=== PATIENT | male | born 1970 | race Caucasian/White ===

== ENCOUNTER 2017-01-30 17:10 | Emergency (ER) | payer SELFPAY ==
[~2017-01-30] VITALS: Ht 167.6 cm; Wt 83.0 kg
[~2017-01-30 17:10] MED LIST: BUPR-93 PO; HYDR25TA PO; LISI-662 PO; QUET25TA PO; QUET300T2 PO
[2017-01-30 19:27] VITALS: BP 137/85
[2017-01-30] MEDS ORDERED: ACETAMINOPHEN 325 MG TABLET PO ONE (19:30)
[2017-01-30] MEDS ORDERED: LIDOCAINE HCL/PF 1% 2 ML VIAL IM ONE (19:30)
[2017-01-30] MEDS ORDERED: CefTRIAXone SODIUM 1 GM/VIAL IM ONE (19:30)
== END 2017-01-30 21:31 | disposition left against medical advice (07) ==
LOC: EMS 17:13
DX: S61.212A Laceration without foreign body of right middle finger without damage to nail, initial encounter (principal); F15.90 Other stimulant use, unspecified, uncomplicated; Z91.018 Allergy to other foods; Z88.8 Allergy status to other drugs, medicaments and biological substances; W31.89XA Contact with other specified machinery, initial encounter; Y93.89 Activity, other specified; Y92.89 Other specified places as the place of occurrence of the external cause; Y99.0 Civilian activity done for income or pay
CPT/HCPCS: 99281

== ENCOUNTER 2017-09-12 00:25 | Emergency (ER) | payer OTHER ==
[~2017-09-12] VITALS: Ht 170.2 cm; Wt 63.5 kg
[2017-09-12] MEDS ORDERED: HYDROCHLOROTHIAZIDE 25 MG TABLET PO ONE (01:00)
[2017-09-12] MEDS ORDERED: LISINOPRIL 10 MG TABLET PO ONE (01:00)
[2017-09-12] MEDS ORDERED: HydrOXYzine HCL 25 MG TABLET PO ONE (01:00)
[2017-09-12 01:16] LABS: BASOPHILS % (AUTO) 0.3 % (0.0-2.0); EOSINOPHILS % (AUTO) 0.5 % (1.0-6.0); HEMATOCRIT 41.2 % (41-53); LYMPHOCYTES # (AUTO) 1.4 K/uL (1.0-4.8); LYMPHOCYTES % (AUTO) 27.6 % (22.0-44.0); MEAN CORPUSCULAR HEMOGLOBIN 30.5 pg (26.0-34.0); MEAN CORPUSCULAR VOLUME 90 fL (80-100); MONOCYTES # (AUTO) 0.4 K/uL (0.1-1.0); MONOCYTES % (AUTO) 8.6 % (2.0-9.0); NEUTROPHILS # (AUTO) 3.3 K/uL (1.8-7.7); PLATELET COUNT (AUTO) 252 K/uL (150-450); RED BLOOD CELL COUNT(AUTO) 4.59 MIL/uL (4.50-5.90); RED CELL DISTRIBUTION WIDTH 15.1 % (11.5-14.5); WHITE BLOOD COUNT (AUTO) 5.2 K/uL (4.5-11.0)
[2017-09-12 01:26] LABS: ANION GAP 6 mmol/L (8-16); CALCIUM, TOTAL 8.7 mg/dL (8.8-10.5); CARBON DIOXIDE 32 mmol/L (22-29); CHLORIDE 104 mmol/L (98-107); CREATININE 0.62 mg/dL (0.60-1.30); GLOMERULAR FILTR. RATE CALC > 60 mL/min (>60); POTASSIUM 3.4 mmol/L (3.5-5.1); SODIUM SERUM 142 mmol/L (136-145); UREA NITROGEN, BLOOD 11 mg/dL (7-18)
[2017-09-12 01:31] LABS: ALANINE AMINOTRANSFERASE 38 U/L (12-78); ALBUMIN 3.4 g/dL (3.4-5.0); ASPARTATE AMINOTRANSFERASE 29 U/L (15-37); BILIRUBIN,TOTAL 0.3 mg/dL (0.1-1.0); TOTAL PROTEIN, SERUM 6.8 g/dL (6.4-8.2)
[2017-09-12 02:05] LABS: CREATINE KINASE MB 3.2 ng/mL (0-5); CREATINE KINASE, TOTAL 170 U/L (39-308)
[2017-09-12 02:44] VITALS: BP 149/89
== END 2017-09-12 02:44 | disposition home or self-care (01) ==
LOC: EMS 00:28
DX: Z91.14 Patient's other noncompliance with medication regimen (principal); F41.9 Anxiety disorder, unspecified; I10 Essential (primary) hypertension; F32.9 Major depressive disorder, single episode, unspecified; F20.9 Schizophrenia, unspecified; Z59.0 Homelessness; F17.210 Nicotine dependence, cigarettes, uncomplicated; F15.10 Other stimulant abuse, uncomplicated; Z88.8 Allergy status to other drugs, medicaments and biological substances
CPT/HCPCS: 93005; 99285; 99406

== ENCOUNTER 2017-09-26 00:20 | Inpatient (IN) | payer OTHER ==
[~2017-09-26] VITALS: Ht 170.2 cm; Wt 65.9 kg
[~2017-09-26 00:20] MED LIST changes: -QUET300T2 PO
[2017-09-26 01:21] LABS: BASOPHILS % (AUTO) 0.3 % (0.0-2.0); EOSINOPHILS % (AUTO) 0.1 % (1.0-6.0); HEMATOCRIT 41.3 % (41-53); HEMOGLOBIN 13.8 g/dL (13.5-17.5); LYMPHOCYTES % (AUTO) 21.4 % (22.0-44.0); MEAN CORPUSCULAR HEMOGLOBIN 30.2 pg (26.0-34.0); MEAN CORPUSCULAR HGB CONC 33.5 G/dL (31.0-37.0); MEAN CORPUSCULAR VOLUME 90 fL (80-100); MONOCYTES # (AUTO) 0.8 K/uL (0.1-1.0); MONOCYTES % (AUTO) 8.6 % (2.0-9.0); NEUTROPHILS # (AUTO) 6.5 K/uL (1.8-7.7); NEUTROPHILS % (AUTO) 69.6 % (40.0-70.0); PLATELET COUNT (AUTO) 270 K/uL (150-450); RED BLOOD CELL COUNT(AUTO) 4.58 MIL/uL (4.50-5.90); WHITE BLOOD COUNT (AUTO) 9.3 K/uL (4.5-11.0)
[2017-09-26 01:30] LABS: ANION GAP 7 mmol/L (8-16); CARBON DIOXIDE 32 mmol/L (22-29); CHLORIDE 99 mmol/L (98-107); CREATININE 0.88 mg/dL (0.60-1.30); GLOMERULAR FILTR. RATE CALC > 60 mL/min (>60); POTASSIUM 3.9 mmol/L (3.5-5.1); SODIUM SERUM 138 mmol/L (136-145); UREA NITROGEN, BLOOD 13 mg/dL (7-18)
[2017-09-26 01:36] LABS: ALANINE AMINOTRANSFERASE 200 U/L (12-78); ASPARTATE AMINOTRANSFERASE 114 U/L (15-37); BILIRUBIN,TOTAL 0.3 mg/dL (0.1-1.0); TOTAL PROTEIN, SERUM 8.7 g/dL (6.4-8.2)
[2017-09-26] MEDS ORDERED: METOPROLOL TARTRATE 5 MG/5 ML VIAL IVP ONE (02:00)
[2017-09-26] MEDS ORDERED: ASPIRIN 325 MG TABLET PO ONE (02:00)
[2017-09-26 02:33] LABS: B-TYPE NATRIURETIC PEPTIDE 43 pg/mL (0-100)
[2017-09-26] MEDS: LORazepam 2 MG/ML VIAL IVP ONE ×2 (02:57→03:10)
[2017-09-26] MEDS ORDERED: NITROGLYCERIN 2% (1 GM=INCH) PACKET TP ONE (03:45)
[2017-09-26] MEDS ORDERED: ONDANSETRON HCL 4 MG/2 ML VIAL IVP PRN ×2 (04:30→08:45)
[2017-09-26] MEDS ORDERED: 0.9% SODIUM CHLORIDE 10 ML SYRINGE IVP PRN (04:30)
[2017-09-26] MEDS ORDERED: ACETAMINOPHEN 325 MG TABLET PO PRN (04:30)
[2017-09-26 05:37] VITALS: BP 159/106
[2017-09-26] MEDS ORDERED: HydrALAZINE HCL 20 MG/ML VIAL IVP PRN (05:45)
[2017-09-26 07:45] VITALS: BP 172/115
[2017-09-26] MEDS ORDERED: ABAC1TAB15 PO (08:32)
[2017-09-26] MEDS ORDERED: AMLO-512 PO (08:32)
[2017-09-26] MEDS ORDERED: MULT1CAP32 PO (08:32)
[2017-09-26] MEDS ORDERED: [UNRECOGNIZED DRUG - CODE] PO (08:32)
[2017-09-26] MEDS ORDERED: MORPHINE SULFATE 2 MG/ML SYRINGE IVP PRN (08:45)
[2017-09-26] MEDS ORDERED: IPRATROPIUM BROMIDE 0.5 MG/2.5 ML NEB SOLUTION NEB PRN (08:45)
[2017-09-26] MEDS ORDERED: LORazepam 2 MG/ML VIAL IVP PRN (08:45)
[2017-09-26] MEDS ORDERED: HYDROCODONE/ACETAMINOPHEN 5-325 MG TABLET PO PRN (08:45)
[2017-09-26] MEDS ORDERED: LISINOPRIL 20 MG TABLET PO SCH (09:00)
[2017-09-26] MEDS ORDERED: [UNRECOGNIZED DRUG - OTHER] PO SCH (09:00)
[2017-09-26] MEDS ORDERED: FAMOTIDINE 20 MG TABLET PO SCH (09:00)
[2017-09-26] MEDS ORDERED: AmLODIPine BESYLATE 10 MG TABLET PO SCH (09:00)
[2017-09-26] MEDS ORDERED: CARVEDILOL 6.25 MG TABLET PO SCH (10:45)
[2017-09-26] MEDS ORDERED: ABACAVIR SULFATE 300 MG TABLET PO SCH (11:00)
[2017-09-26] MEDS ORDERED: DOLUTEGRAVIR SODIUM 50 MG TABLET PO SCH (11:00)
[2017-09-26 12:33] LABS: CHOL/HDL RATIO 1.8 (4.2-7.3); THYROID STIMULATING HORMONE 6.23 uIU/mL (0.36-3.74)
[2017-09-26 15:38] VITALS: BP 165/110
[2017-09-27] MEDS ORDERED: MULTIVITAMINS, THERAPEUTIC TABLET PO SCH (09:00)
== END 2017-09-26 17:20 | disposition left against medical advice (07) | DRG 812 ==
LOC: EMS 00:22 → 5S 04:12
PROVIDERS: ADMIT Hospitalist; ATTEND Hospitalist
DX: T43.621A Poisoning by amphetamines, accidental (unintentional), initial encounter (principal); I42.9 Cardiomyopathy, unspecified; F15.10 Other stimulant abuse, uncomplicated; I25.9 Chronic ischemic heart disease, unspecified; F41.9 Anxiety disorder, unspecified; I10 Essential (primary) hypertension; F32.9 Major depressive disorder, single episode, unspecified; F10.10 Alcohol abuse, uncomplicated; Y90.0 Blood alcohol level of less than 20 mg/100 ml; F17.210 Nicotine dependence, cigarettes, uncomplicated; F43.10 Post-traumatic stress disorder, unspecified; F20.9 Schizophrenia, unspecified; R74.0 Nonspecific elevation of levels of transaminase and lactic acid dehydrogenase [LDH]; B18.2 Chronic viral hepatitis C; Z88.1 Allergy status to other antibiotic agents; Z53.21 Procedure and treatment not carried out due to patient leaving prior to being seen by health care provider; Z91.018 Allergy to other foods; Z59.0 Homelessness; Z91.19 Patient's noncompliance with other medical treatment and regimen; Z79.899 Other long term (current) drug therapy
CPT/HCPCS: 84439; 84443; 87081; 93005; 93306; 96374; 99291; G0480; J0360; J2060; J3490

== ENCOUNTER 2017-10-07 01:20 | Inpatient (IN) | payer MEDICAID, OTHER ==
[~2017-10-07] VITALS: Ht 170.2 cm; Wt 64.9 kg
[2017-10-07] VITALS (7 sets, daily range): BP systolic 144–161; BP diastolic 79–101
[~2017-10-07 01:20] MED LIST changes: +ABAC1TAB15 PO; +AMLO-512 PO; -BUPR-93 PO; -HYDR25TA PO; +MULT1CAP32 PO; +[UNRECOGNIZED DRUG - CODE] PO
[2017-10-07] MEDS ORDERED: HALOPERIDOL 5 MG TABLET PO PRN (02:15)
[2017-10-07] MEDS ORDERED: PNEUMOCOCCAL VACCINE POLYVALENT 0.5 ML VIAL [PPSV23] IM ONE (03:30)
[2017-10-07] MEDS ORDERED: -PHARMACY VACCINE NOTE- MISC ONE (03:30)
[2017-10-07] MEDS: ZOLPIDEM TARTRATE 10 MG TABLET PO PRN (03:35)
[2017-10-07] MEDS: LORazepam 2 MG TABLET PO PRN ×2 (03:35→16:07)
[2017-10-07] MEDS ORDERED: AmLODIPine BESYLATE 5 MG TABLET PO SCH (09:00)
[2017-10-07] MEDS: CloNIDine HCL 0.1 MG TABLET PO PRN (13:31)
[2017-10-07] MEDS: QUEtiapine FUMARATE 100 MG TABLET PO SCH (20:27)
[2017-10-07] MEDS ORDERED: ACETAMINOPHEN 325 MG TABLET PO PRN (22:15)
[2017-10-07] MEDS ORDERED: IBUPROFEN 400 MG TABLET PO PRN (22:15)
[2017-10-08 07:14] VITALS: BP 126/85
[2017-10-08 08:29] LABS: BASOPHILS # (AUTO) 0.02 K/uL (0.00-0.20); BASOPHILS % (AUTO) 0.6 % (0.0-2.0); EOSINOPHILS # (AUTO) 0.06 K/uL (0.00-0.70); EOSINOPHILS % (AUTO) 1.32 % (1.0-6.0); HEMOGLOBIN 12.5 g/dL (13.5-17.5); LYMPHOCYTES # (AUTO) 1.9 K/uL (1.0-4.8); MEAN CORPUSCULAR HEMOGLOBIN 29.7 pg (26.0-34.0); MEAN CORPUSCULAR VOLUME 90 fL (80-100); MONOCYTES # (AUTO) 0.4 K/uL (0.1-1.0); MONOCYTES % (AUTO) 9.6 % (2.0-9.0); NEUTROPHILS # (AUTO) 1.9 K/uL (1.8-7.7); NEUTROPHILS % (AUTO) 44.5 % (40.0-70.0); PLATELET COUNT (AUTO) 231 K/uL (150-450); RED BLOOD CELL COUNT(AUTO) 4.22 MIL/uL (4.50-5.90); RED CELL DISTRIBUTION WIDTH 14.8 % (11.5-14.5)
[2017-10-08 08:39] VITALS: BP 146/91
[2017-10-08 08:43] LABS: HEMOGLOBIN A1C 5.8 % (4.5-6.2)
[2017-10-08] MEDS: AmLODIPine BESYLATE 10 MG TABLET PO SCH (08:43)
[2017-10-08] MEDS: LISINOPRIL 20 MG TABLET PO SCH (08:43)
[2017-10-08] MEDS: QUEtiapine FUMARATE 100 MG TABLET PO SCH ×2 (08:43→20:18)
[2017-10-08 08:59] LABS: ALANINE AMINOTRANSFERASE 64 U/L (12-78); ALBUMIN 2.4 g/dL (3.4-5.0); ALKALINE PHOSPHATASE 98 U/L (46-116); ANION GAP 2 mmol/L (8-16); ASPARTATE AMINOTRANSFERASE 68 U/L (15-37); BILIRUBIN,TOTAL 0.3 mg/dL (0.1-1.0); CALCIUM, TOTAL 8.3 mg/dL (8.8-10.5); CARBON DIOXIDE 33 mmol/L (22-29); CHLORIDE 105 mmol/L (98-107); CHOL/HDL RATIO 2.6 (4.2-7.3); CHOLESTEROL 115 mg/dL (131-200); FREE T4 (FREE THYROXINE) 0.88 ng/dL (0.76-1.46); GLOMERULAR FILTR. RATE CALC > 60 mL/min (>60); GLUCOSE,RANDOM 95 mg/dL (70-110); HDL CHOLESTEROL 45 mg/dL (40-60); LDL CHOL (CALC.) 57 mg/dL (0-130); POTASSIUM 3.8 mmol/L (3.5-5.1); SODIUM SERUM 140 mmol/L (136-145); THYROID STIMULATING HORMONE 1.52 uIU/mL (0.36-3.74); TOTAL PROTEIN, SERUM 6.3 g/dL (6.4-8.2); TRIGLYCERIDES 65 mg/dL (15-150); UREA NITROGEN, BLOOD 22 mg/dL (7-18)
[2017-10-08] MEDS ORDERED: [UNRECOGNIZED DRUG - OTHER] PO SCH (09:00)
[2017-10-08] MEDS: LORazepam 2 MG TABLET PO PRN (12:17)
[2017-10-08] MEDS: ABACAVIR SULFATE 300 MG TABLET PO SCH (15:46)
[2017-10-08] MEDS: DOLUTEGRAVIR SODIUM 50 MG TABLET PO SCH (15:46)
[2017-10-08 16:15] VITALS: BP 157/106
[2017-10-08] MEDS: CloNIDine HCL 0.1 MG TABLET PO PRN (16:16)
[2017-10-08 17:16] VITALS: BP 132/76
[2017-10-08] MEDS: ZOLPIDEM TARTRATE 10 MG TABLET PO PRN (20:18)
[2017-10-09] VITALS: BP 133/89
[2017-10-09] MEDS: DOLUTEGRAVIR SODIUM 50 MG TABLET PO SCH (08:32)
[2017-10-09] MEDS: AmLODIPine BESYLATE 10 MG TABLET PO SCH (08:33)
[2017-10-09] MEDS: LISINOPRIL 20 MG TABLET PO SCH (08:33)
[2017-10-09] MEDS: QUEtiapine FUMARATE 100 MG TABLET PO SCH (08:33)
[2017-10-09] MEDS: ABACAVIR SULFATE 300 MG TABLET PO SCH (08:33)
[2017-10-09 08:56] VITALS: BP 154/91
[2017-10-09 14:25] VITALS: BP 138/89
[2017-10-09 16:50] VITALS: BP 145/85
[2017-10-09] MEDS: QUEtiapine FUMARATE 200 MG TABLET PO SCH (20:29)
[2017-10-10 06:31] VITALS: BP 139/91
[2017-10-10 06:32] VITALS: BP 140/91
[2017-10-10 08:00] VITALS: BP 120/64
[2017-10-10] MEDS: QUEtiapine FUMARATE 200 MG TABLET PO SCH ×2 (08:54→20:28)
[2017-10-10] MEDS: ABACAVIR SULFATE 300 MG TABLET PO SCH (08:54)
[2017-10-10] MEDS: AmLODIPine BESYLATE 10 MG TABLET PO SCH (08:54)
[2017-10-10] MEDS: DOLUTEGRAVIR SODIUM 50 MG TABLET PO SCH (08:54)
[2017-10-10] MEDS: LISINOPRIL 20 MG TABLET PO SCH (08:54)
[2017-10-10 16:00] VITALS: BP 125/75
[2017-10-11 05:21] VITALS: BP 126/82
[2017-10-11 08:53] VITALS: BP 141/85
[2017-10-11] MEDS: LISINOPRIL 20 MG TABLET PO SCH (10:17)
[2017-10-11] MEDS: QUEtiapine FUMARATE 200 MG TABLET PO SCH ×2 (10:17→20:21)
[2017-10-11] MEDS: DOLUTEGRAVIR SODIUM 50 MG TABLET PO SCH (10:17)
[2017-10-11] MEDS: AmLODIPine BESYLATE 10 MG TABLET PO SCH (10:18)
[2017-10-11] MEDS: ABACAVIR SULFATE 300 MG TABLET PO SCH (10:19)
[2017-10-11 16:28] VITALS: BP 131/64
[2017-10-11] MEDS: ZOLPIDEM TARTRATE 10 MG TABLET PO PRN (21:32)
[2017-10-12 00:21] VITALS: BP 137/81
[2017-10-12 08:40] VITALS: BP 138/85
[2017-10-12] MEDS: ABACAVIR SULFATE 300 MG TABLET PO SCH (08:42)
[2017-10-12] MEDS: DOLUTEGRAVIR SODIUM 50 MG TABLET PO SCH (08:42)
[2017-10-12] MEDS: AmLODIPine BESYLATE 10 MG TABLET PO SCH (08:43)
[2017-10-12] MEDS: LISINOPRIL 20 MG TABLET PO SCH (08:43)
[2017-10-12] MEDS: QUEtiapine FUMARATE 200 MG TABLET PO SCH ×2 (08:43→20:19)
[2017-10-13 02:53] VITALS: BP 126/73
[2017-10-13] MEDS: ABACAVIR SULFATE 300 MG TABLET PO SCH (08:56)
[2017-10-13] MEDS: DOLUTEGRAVIR SODIUM 50 MG TABLET PO SCH (08:56)
[2017-10-13] MEDS: AmLODIPine BESYLATE 10 MG TABLET PO SCH (08:57)
[2017-10-13] MEDS: LISINOPRIL 20 MG TABLET PO SCH (08:57)
[2017-10-13] MEDS: QUEtiapine FUMARATE 200 MG TABLET PO SCH (08:57)
[2017-10-13 09:11] VITALS: BP 138/92
[2017-10-13 16:41] VITALS: BP 130/83
[2017-10-13] MEDS ORDERED: QUET50TA PO (18:38)
[2017-10-13] MEDS ORDERED: ALBU8HFA IH (19:26)
[2017-10-13] MEDS ORDERED: ABAC300T8 PO (19:26)
[2017-10-13] MEDS ORDERED: LAMI300T PO (19:26)
[2017-10-13] MEDS ORDERED: DOLU50TA PO (19:26)
== END 2017-10-13 22:21 | disposition home or self-care (01) | DRG 750 ==
LOC: EDSTATUS 01:26 → B2S 02:19
PROC: 3E0234Z Introduction of Serum, Toxoid and Vaccine into Muscle, Percutaneous Approach (ICD-10-PCS; principal; 2017-10-07)
DX: F25.1 Schizoaffective disorder, depressive type (principal); R45.851 Suicidal ideations; Z91.19 Patient's noncompliance with other medical treatment and regimen; I10 Essential (primary) hypertension; B18.2 Chronic viral hepatitis C; J44.9 Chronic obstructive pulmonary disease, unspecified; F15.99 Other stimulant use, unspecified with unspecified stimulant-induced disorder; Z20.6 Contact with and (suspected) exposure to human immunodeficiency virus [HIV]; Z91.5 Personal history of self-harm; Z59.0 Homelessness; Z23 Encounter for immunization
CPT/HCPCS: 83036; 84439; 84443; 87081; 90471

== ENCOUNTER 2017-10-24 00:46 | Inpatient (IN) | payer MEDICAID, OTHER ==
[~2017-10-24] VITALS: Ht 170.2 cm; Wt 65.3 kg
[~2017-10-24 00:46] MED LIST changes: -ABAC1TAB15 PO; +ABAC300T8 PO; +ALBU8HFA IH; +DOLU50TA PO; +LAMI300T PO; -MULT1CAP32 PO; -QUET25TA PO; +QUET50TA PO; -[UNRECOGNIZED DRUG - CODE] PO
[2017-10-24] MEDS ORDERED: ZOLPIDEM TARTRATE 10 MG TABLET PO PRN (02:30)
[2017-10-24 02:32] LABS: BASOPHILS % (AUTO) 0.1 % (0.0-2.0); EOSINOPHILS % (AUTO) 1.4 % (1.0-6.0); HEMOGLOBIN 12.7 g/dL (13.5-17.5); LYMPHOCYTES # (AUTO) 2.8 K/uL (1.0-4.8); LYMPHOCYTES % (AUTO) 34.5 % (22.0-44.0); MEAN CORPUSCULAR HEMOGLOBIN 30.5 pg (26.0-34.0); MEAN CORPUSCULAR HGB CONC 34.3 G/dL (31.0-37.0); MEAN CORPUSCULAR VOLUME 89 fL (80-100); MONOCYTES # (AUTO) 0.9 K/uL (0.1-1.0); MONOCYTES % (AUTO) 11.1 % (2.0-9.0); NEUTROPHILS # (AUTO) 4.3 K/uL (1.8-7.7); NEUTROPHILS % (AUTO) 52.9 % (40.0-70.0); PLATELET COUNT (AUTO) 239 K/uL (150-450); RED BLOOD CELL COUNT(AUTO) 4.16 MIL/uL (4.50-5.90); RED CELL DISTRIBUTION WIDTH 14.9 % (11.5-14.5)
[2017-10-24 02:45] LABS: ANION GAP 8 mmol/L (8-16); CALCIUM, TOTAL 8.4 mg/dL (8.8-10.5); CARBON DIOXIDE 30 mmol/L (22-29); CHLORIDE 98 mmol/L (98-107); GLOMERULAR FILTR. RATE CALC > 60 mL/min (>60); GLUCOSE,RANDOM 73 mg/dL (70-110); POTASSIUM 3.4 mmol/L (3.5-5.1); SODIUM SERUM 136 mmol/L (136-145); UREA NITROGEN, BLOOD 30 mg/dL (7-18)
[2017-10-24 02:46] LABS: AMPHET/METH SCREEN,URINE POSITIVE (NEGATIVE); BARBITURATE SCREEN, URINE NEGATIVE (NEGATIVE); BENZODIAZEPINES SCREEN,URINE NEGATIVE (NEGATIVE); CANNABINOID SCREEN,URINE NEGATIVE (NEGATIVE); COCAINE SCREEN,URINE NEGATIVE (NEGATIVE); METHADONE SCREEN, URINE NEGATIVE (NEGATIVE); OPIATE SCREEN,URINE NEGATIVE (NEGATIVE)
[2017-10-24 02:48] LABS: ALANINE AMINOTRANSFERASE 151 U/L (12-78); ALBUMIN 3.3 g/dL (3.4-5.0); ALKALINE PHOSPHATASE 86 U/L (46-116); ASPARTATE AMINOTRANSFERASE 199 U/L (15-37); BILIRUBIN,TOTAL 1.4 mg/dL (0.1-1.0); TOTAL PROTEIN, SERUM 7.6 g/dL (6.4-8.2)
[2017-10-24 02:49] LABS: PHENCYCLIDINE SCREEN,URINE NEGATIVE (NEGATIVE)
[2017-10-24] MEDS: LORazepam 2 MG TABLET PO PRN (14:18)
[2017-10-24] MEDS: HALOPERIDOL 5 MG TABLET PO PRN (14:18)
[2017-10-24] MEDS ORDERED: IBUPROFEN 600 MG TABLET PO ONE (14:45)
[2017-10-24] MEDS ORDERED: POTASSIUM CHLORIDE 20 MEQ ER TABLET PO ONE (17:15)
[2017-10-24 18:19] VITALS: BP 123/68
[2017-10-25 01:26] VITALS: BP 131/91
[2017-10-25] MEDS: HALOPERIDOL 5 MG TABLET PO PRN (01:37)
[2017-10-25] MEDS: LORazepam 2 MG TABLET PO PRN ×2 (01:37→16:18)
[2017-10-25 08:10] LABS: CHOL/HDL RATIO 2.4 (4.2-7.3); POTASSIUM 3.8 mmol/L (3.5-5.1)
[2017-10-25] MEDS: DOLUTEGRAVIR SODIUM 50 MG TABLET PO SCH (08:16)
[2017-10-25] MEDS: ABACAVIR SULFATE 300 MG TABLET PO SCH (08:16)
[2017-10-25] MEDS: LISINOPRIL 20 MG TABLET PO SCH (08:24)
[2017-10-25] MEDS: AmLODIPine BESYLATE 10 MG TABLET PO SCH (08:24)
[2017-10-25 08:34] VITALS: BP 119/69
[2017-10-25] MEDS: QUEtiapine FUMARATE 200 MG TABLET PO SCH ×2 (12:31→16:18)
[2017-10-25 16:00] VITALS: BP 118/70
[2017-10-25 18:26] VITALS: BP 120/76
[2017-10-25] MEDS ORDERED: IBUPROFEN 400 MG TABLET PO PRN (18:30)
[2017-10-25] MEDS ORDERED: ACETAMINOPHEN 325 MG TABLET PO PRN (18:30)
[2017-10-26 06:08] VITALS: BP 112/72
[2017-10-26 08:29] VITALS: BP 114/62
[2017-10-26] MEDS: AmLODIPine BESYLATE 10 MG TABLET PO SCH (09:00)
[2017-10-26] MEDS: ABACAVIR SULFATE 300 MG TABLET PO SCH (09:00)
[2017-10-26] MEDS: LISINOPRIL 20 MG TABLET PO SCH (09:00)
[2017-10-26] MEDS: DOLUTEGRAVIR SODIUM 50 MG TABLET PO SCH (09:00)
[2017-10-26] MEDS: QUEtiapine FUMARATE 200 MG TABLET PO SCH ×2 (09:32→17:26)
[2017-10-26] MEDS: LORazepam 2 MG TABLET PO PRN (17:26)
[2017-10-27 05:53] VITALS: BP 140/93
[2017-10-27] MEDS: QUEtiapine FUMARATE 200 MG TABLET PO SCH ×2 (08:32→16:03)
[2017-10-27] MEDS: AmLODIPine BESYLATE 10 MG TABLET PO SCH (08:32)
[2017-10-27] MEDS: LISINOPRIL 20 MG TABLET PO SCH (08:43)
[2017-10-27] MEDS: DOLUTEGRAVIR SODIUM 50 MG TABLET PO SCH (08:43)
[2017-10-27] MEDS: ABACAVIR SULFATE 300 MG TABLET PO SCH (08:43)
[2017-10-27 08:47] VITALS: BP 140/80
[2017-10-27] MEDS: LORazepam 2 MG TABLET PO PRN ×2 (11:35→16:03)
[2017-10-27 16:15] VITALS: BP 122/79
[2017-10-28] MEDS: LORazepam 2 MG TABLET PO PRN ×2 (03:58→16:16)
[2017-10-28 05:39] VITALS: BP 141/86
[2017-10-28] MEDS: DOLUTEGRAVIR SODIUM 50 MG TABLET PO SCH (08:12)
[2017-10-28] MEDS: QUEtiapine FUMARATE 200 MG TABLET PO SCH ×2 (08:12→16:16)
[2017-10-28] MEDS: ABACAVIR SULFATE 300 MG TABLET PO SCH (08:12)
[2017-10-28] MEDS: LISINOPRIL 20 MG TABLET PO SCH (08:12)
[2017-10-28] MEDS: AmLODIPine BESYLATE 10 MG TABLET PO SCH (08:12)
[2017-10-28 08:23] VITALS: BP 143/92
[2017-10-28 16:55] VITALS: BP 114/66
[2017-10-29] MEDS: LORazepam 2 MG TABLET PO PRN (01:49)
[2017-10-29 05:47] VITALS: BP 130/86
[2017-10-29 08:18] VITALS: BP 113/61
[2017-10-29] MEDS: LISINOPRIL 20 MG TABLET PO SCH (08:50)
[2017-10-29] MEDS: ABACAVIR SULFATE 300 MG TABLET PO SCH (08:51)
[2017-10-29] MEDS: QUEtiapine FUMARATE 200 MG TABLET PO SCH ×2 (08:51→16:52)
[2017-10-29] MEDS: AmLODIPine BESYLATE 10 MG TABLET PO SCH (08:51)
[2017-10-29] MEDS: DOLUTEGRAVIR SODIUM 50 MG TABLET PO SCH (08:51)
[2017-10-29 18:28] VITALS: BP 107/61
[2017-10-30 01:12] VITALS: BP 100/61
[2017-10-30 08:01] VITALS: BP 107/61
[2017-10-30] MEDS: DOLUTEGRAVIR SODIUM 50 MG TABLET PO SCH (08:38)
[2017-10-30] MEDS: LISINOPRIL 20 MG TABLET PO SCH (08:39)
[2017-10-30] MEDS: AmLODIPine BESYLATE 10 MG TABLET PO SCH (08:39)
[2017-10-30] MEDS: QUEtiapine FUMARATE 200 MG TABLET PO SCH (08:39)
[2017-10-30] MEDS: ABACAVIR SULFATE 300 MG TABLET PO SCH (08:50)
[2017-10-30] MEDS: QUEtiapine FUMARATE 300 MG TABLET PO SCH (20:46)
[2017-10-31 06:58] VITALS: BP 110/68
[2017-10-31] MEDS: ABACAVIR SULFATE 300 MG TABLET PO SCH (09:32)
[2017-10-31] MEDS: DOLUTEGRAVIR SODIUM 50 MG TABLET PO SCH (09:32)
[2017-10-31] MEDS: LISINOPRIL 20 MG TABLET PO SCH (09:32)
[2017-10-31] MEDS: QUEtiapine FUMARATE 200 MG TABLET PO SCH (09:33)
[2017-10-31] MEDS: AmLODIPine BESYLATE 10 MG TABLET PO SCH (09:33)
[2017-10-31 13:22] VITALS: BP 116/73
[2017-10-31] MEDS: LORazepam 2 MG TABLET PO PRN (16:10)
[2017-10-31] MEDS: QUEtiapine FUMARATE 300 MG TABLET PO SCH (20:39)
[2017-11-01] VITALS: BP 107/62
[2017-11-01] MEDS: QUEtiapine FUMARATE 200 MG TABLET PO SCH ×2 (08:00→20:01)
[2017-11-01] MEDS: LISINOPRIL 20 MG TABLET PO SCH (08:00)
[2017-11-01] MEDS: DOLUTEGRAVIR SODIUM 50 MG TABLET PO SCH (08:00)
[2017-11-01] MEDS: AmLODIPine BESYLATE 10 MG TABLET PO SCH (08:00)
[2017-11-01] MEDS: ABACAVIR SULFATE 300 MG TABLET PO SCH (08:01)
[2017-11-01 08:09] VITALS: BP 119/70
[2017-11-01] MEDS: LORazepam 2 MG TABLET PO PRN (16:28)
[2017-11-01 16:54] VITALS: BP 106/63
[2017-11-02 01:12] VITALS: BP 109/61
[2017-11-02] MEDS: ABACAVIR SULFATE 300 MG TABLET PO SCH (08:23)
[2017-11-02] MEDS: DOLUTEGRAVIR SODIUM 50 MG TABLET PO SCH (08:23)
[2017-11-02] MEDS: QUEtiapine FUMARATE 200 MG TABLET PO SCH ×2 (08:24→20:04)
[2017-11-02] MEDS: AmLODIPine BESYLATE 10 MG TABLET PO SCH (08:24)
[2017-11-02] MEDS: LISINOPRIL 20 MG TABLET PO SCH (08:25)
[2017-11-02 08:34] VITALS: BP 112/67
[2017-11-02 16:00] VITALS: BP 118/82
[2017-11-02] MEDS: LORazepam 2 MG TABLET PO PRN (16:27)
[2017-11-03] MEDS: LISINOPRIL 20 MG TABLET PO SCH (08:03)
[2017-11-03] MEDS: AmLODIPine BESYLATE 10 MG TABLET PO SCH (08:03)
[2017-11-03] MEDS: QUEtiapine FUMARATE 200 MG TABLET PO SCH ×2 (08:03→20:13)
[2017-11-03] MEDS: ABACAVIR SULFATE 300 MG TABLET PO SCH (08:05)
[2017-11-03] MEDS: DOLUTEGRAVIR SODIUM 50 MG TABLET PO SCH (08:05)
[2017-11-03 08:11] VITALS: BP 113/73
[2017-11-03 16:00] VITALS: BP 122/63
[2017-11-04 08:29] VITALS: BP 115/71
[2017-11-04] MEDS: AmLODIPine BESYLATE 10 MG TABLET PO SCH (08:42)
[2017-11-04] MEDS: LISINOPRIL 20 MG TABLET PO SCH (08:42)
[2017-11-04] MEDS: DOLUTEGRAVIR SODIUM 50 MG TABLET PO SCH (08:42)
[2017-11-04] MEDS: ABACAVIR SULFATE 300 MG TABLET PO SCH (08:42)
[2017-11-04] MEDS: QUEtiapine FUMARATE 200 MG TABLET PO SCH (08:42)
[2017-11-04 16:00] VITALS: BP 107/71
[2017-11-05] MEDS ORDERED: IBUP-2071 PO (21:31)
[2017-11-05] MEDS ORDERED: HYDR25TA PO (21:31)
== END 2017-11-04 18:44 | disposition home or self-care (01) | DRG 750 ==
LOC: EMS 00:48 → B2S 14:48
DX: F20.0 Paranoid schizophrenia (principal); R45.851 Suicidal ideations; R74.0 Nonspecific elevation of levels of transaminase and lactic acid dehydrogenase [LDH]; Z21 Asymptomatic human immunodeficiency virus [HIV] infection status; I10 Essential (primary) hypertension; B18.2 Chronic viral hepatitis C; J44.9 Chronic obstructive pulmonary disease, unspecified; F17.210 Nicotine dependence, cigarettes, uncomplicated; F32.9 Major depressive disorder, single episode, unspecified; F15.99 Other stimulant use, unspecified with unspecified stimulant-induced disorder; Z88.8 Allergy status to other drugs, medicaments and biological substances; Z79.899 Other long term (current) drug therapy; Z91.19 Patient's noncompliance with other medical treatment and regimen; Z59.0 Homelessness
CPT/HCPCS: 84132; 87081; 99285; G0480

== ENCOUNTER 2017-11-05 19:51 | Emergency (ER) | payer MEDICAID, OTHER ==
[~2017-11-05] VITALS: Ht 170.2 cm; Wt 65.0 kg
[~2017-11-05 19:51] MED LIST changes: -ALBU8HFA IH
[2017-11-05 20:24] LABS: BASOPHILS % (AUTO) 0.2 % (0.0-2.0); EOSINOPHILS % (AUTO) 0.1 % (1.0-6.0); HEMATOCRIT 40.7 % (41-53); HEMOGLOBIN 14.1 g/dL (13.5-17.5); LYMPHOCYTES # (AUTO) 2.8 K/uL (1.0-4.8); MEAN CORPUSCULAR HEMOGLOBIN 30.4 pg (26.0-34.0); MEAN CORPUSCULAR HGB CONC 34.6 G/dL (31.0-37.0); MEAN CORPUSCULAR VOLUME 88 fL (80-100); MONOCYTES # (AUTO) 0.8 K/uL (0.1-1.0); NEUTROPHILS # (AUTO) 7.2 K/uL (1.8-7.7); NEUTROPHILS % (AUTO) 66.7 % (40.0-70.0); PLATELET COUNT (AUTO) 342 K/uL (150-450); RED BLOOD CELL COUNT(AUTO) 4.64 MIL/uL (4.50-5.90); RED CELL DISTRIBUTION WIDTH 15.8 % (11.5-14.5)
[2017-11-05 20:36] LABS: ANION GAP 13 mmol/L (8-16); CALCIUM, TOTAL 9.5 mg/dL (8.8-10.5); CARBON DIOXIDE 29 mmol/L (22-29); CHLORIDE 100 mmol/L (98-107); CREATININE 0.98 mg/dL (0.60-1.30); GLOMERULAR FILTR. RATE CALC > 60 mL/min (>60); GLUCOSE,RANDOM 101 mg/dL (70-110); POTASSIUM 4.5 mmol/L (3.5-5.1); SODIUM SERUM 142 mmol/L (136-145); UREA NITROGEN, BLOOD 26 mg/dL (7-18)
[2017-11-05 20:41] LABS: ALANINE AMINOTRANSFERASE 137 U/L (12-78); ALBUMIN 4.5 g/dL (3.4-5.0); ALKALINE PHOSPHATASE 114 U/L (46-116); ASPARTATE AMINOTRANSFERASE 127 U/L (15-37); BILIRUBIN,TOTAL 0.5 mg/dL (0.1-1.0); TOTAL PROTEIN, SERUM 9.5 g/dL (6.4-8.2)
[2017-11-05] MEDS ORDERED: IBUP-2071 PO (21:31)
[2017-11-05] MEDS ORDERED: HYDR25TA PO (21:31)
[2017-11-05 21:38] LABS: AMPHET/METH SCREEN,URINE POSITIVE (NEGATIVE); BARBITURATE SCREEN, URINE NEGATIVE (NEGATIVE); BENZODIAZEPINES SCREEN,URINE NEGATIVE (NEGATIVE); CANNABINOID SCREEN,URINE NEGATIVE (NEGATIVE); COCAINE SCREEN,URINE NEGATIVE (NEGATIVE); METHADONE SCREEN, URINE NEGATIVE (NEGATIVE); OPIATE SCREEN,URINE NEGATIVE (NEGATIVE); PHENCYCLIDINE SCREEN,URINE NEGATIVE (NEGATIVE)
[2017-11-05] MEDS ORDERED: LORazepam 2 MG TABLET PO ONE (21:45)
[2017-11-05] MEDS ORDERED: AmLODIPine BESYLATE 5 MG TABLET PO ONE (21:45)
[2017-11-05 21:57] VITALS: BP 171/116
== END 2017-11-05 22:32 | disposition home or self-care (01) ==
LOC: EMS 19:54
DX: F25.9 Schizoaffective disorder, unspecified (principal); I10 Essential (primary) hypertension; F15.10 Other stimulant abuse, uncomplicated; F17.210 Nicotine dependence, cigarettes, uncomplicated; Z88.8 Allergy status to other drugs, medicaments and biological substances; Z59.0 Homelessness
CPT/HCPCS: 36415; 80053; 80307; 85025; 99284; G0480

== ENCOUNTER 2017-11-07 23:34 | Inpatient (IN) | payer MEDICAID ==
[~2017-11-07] VITALS: Ht 170.2 cm; Wt 64.0 kg
[~2017-11-07 23:34] MED LIST changes: +HYDR25TA PO; +IBUP-2071 PO
[2017-11-08] MEDS ORDERED: ZOLPIDEM TARTRATE 10 MG TABLET PO PRN (02:30)
[2017-11-08 03:35] VITALS: BP 136/90
[2017-11-08] MEDS: LORazepam 2 MG TABLET PO PRN ×2 (03:41→16:17)
[2017-11-08] MEDS: HALOPERIDOL 5 MG TABLET PO PRN ×2 (04:17→16:17)
[2017-11-08] MEDS: HYDROCHLOROTHIAZIDE 25 MG TABLET PO SCH ×2 (09:00→16:16)
[2017-11-08] MEDS: DOLUTEGRAVIR SODIUM 50 MG TABLET PO SCH (09:00)
[2017-11-08] MEDS: IBUPROFEN 800 MG TABLET PO SCH ×2 (09:00→16:17)
[2017-11-08] MEDS: ABACAVIR SULFATE 300 MG TABLET PO SCH (09:00)
[2017-11-08] MEDS: AmLODIPine BESYLATE 10 MG TABLET PO SCH (09:00)
[2017-11-08] MEDS: LISINOPRIL 20 MG TABLET PO SCH (09:00)
[2017-11-08 16:00] VITALS: BP 136/70
[2017-11-08] MEDS ORDERED: ACETAMINOPHEN 325 MG TABLET PO PRN (20:30)
[2017-11-08] MEDS ORDERED: ALBUTEROL SULFATE HFA 90 MCG/PUFF 8 GM INHALER IH PRN (20:30)
[2017-11-08] MEDS ORDERED: IBUPROFEN 400 MG TABLET PO PRN (20:30)
[2017-11-08] MEDS: QUEtiapine FUMARATE 200 MG TABLET PO SCH (20:50)
[2017-11-09 05:45] VITALS: BP 130/86
[2017-11-09 08:42] LABS: BASOPHILS % (AUTO) 1.3 % (0.0-2.0); HEMATOCRIT 40.3 % (41-53); HEMOGLOBIN 13.9 g/dL (13.5-17.5); LYMPHOCYTES # (AUTO) 2.4 K/uL (1.0-4.8); LYMPHOCYTES % (AUTO) 44.9 % (22.0-44.0); MEAN CORPUSCULAR HGB CONC 34.4 G/dL (31.0-37.0); MEAN CORPUSCULAR VOLUME 87 fL (80-100); MONOCYTES # (AUTO) 0.6 K/uL (0.1-1.0); MONOCYTES % (AUTO) 11.5 % (2.0-9.0); NEUTROPHILS % (AUTO) 36.3 % (40.0-70.0); PLATELET COUNT (AUTO) 266 K/uL (150-450); RED BLOOD CELL COUNT(AUTO) 4.62 MIL/uL (4.50-5.90); RED CELL DISTRIBUTION WIDTH 15.4 % (11.5-14.5)
[2017-11-09] MEDS: DOLUTEGRAVIR SODIUM 50 MG TABLET PO SCH ×3 (09:05→13:21)
[2017-11-09] MEDS: LISINOPRIL 20 MG TABLET PO SCH ×3 (09:05→13:21)
[2017-11-09] MEDS: ABACAVIR SULFATE 300 MG TABLET PO SCH ×3 (09:05→13:20)
[2017-11-09] MEDS: HYDROCHLOROTHIAZIDE 25 MG TABLET PO SCH ×4 (09:06→17:22)
[2017-11-09] MEDS: AmLODIPine BESYLATE 10 MG TABLET PO SCH ×3 (09:06→13:20)
[2017-11-09] MEDS: QUEtiapine FUMARATE 200 MG TABLET PO SCH ×3 (09:06→13:20)
[2017-11-09] MEDS: IBUPROFEN 800 MG TABLET PO SCH ×4 (09:06→17:22)
[2017-11-09 09:10] LABS: HEMOGLOBIN A1C 5.5 % (4.5-6.2)
[2017-11-09 09:19] LABS: ALANINE AMINOTRANSFERASE 119 U/L (12-78); ALBUMIN 3.3 g/dL (3.4-5.0); ALKALINE PHOSPHATASE 95 U/L (46-116); ANION GAP 6 mmol/L (8-16); ASPARTATE AMINOTRANSFERASE 80 U/L (15-37); BILIRUBIN,TOTAL 0.7 mg/dL (0.1-1.0); CALCIUM, TOTAL 8.8 mg/dL (8.8-10.5); CARBON DIOXIDE 32 mmol/L (22-29); CHLORIDE 100 mmol/L (98-107); CHOL/HDL RATIO 2.3 (4.2-7.3); CHOLESTEROL 158 mg/dL (131-200); CREATININE 0.69 mg/dL (0.60-1.30); FREE T4 (FREE THYROXINE) 1.15 ng/dL (0.76-1.46); GLOMERULAR FILTR. RATE CALC > 60 mL/min (>60); GLUCOSE,RANDOM 73 mg/dL (70-110); HDL CHOLESTEROL 70 mg/dL (40-60); LDL CHOL (CALC.) 77 mg/dL (0-130); POTASSIUM 3.3 mmol/L (3.5-5.1); SODIUM SERUM 138 mmol/L (136-145); THYROID STIMULATING HORMONE 1.02 uIU/mL (0.36-3.74); TOTAL PROTEIN, SERUM 7.7 g/dL (6.4-8.2); TRIGLYCERIDES 54 mg/dL (15-150); UREA NITROGEN, BLOOD 27 mg/dL (7-18)
[2017-11-09 10:04] VITALS: BP 122/76
[2017-11-09] MEDS: LORazepam 2 MG TABLET PO PRN (13:19)
[2017-11-09 16:15] VITALS: BP 106/64
[2017-11-09] MEDS: QUEtiapine FUMARATE 300 MG TABLET PO SCH (21:21)
[2017-11-09] MEDS: POTASSIUM CHLORIDE 20 MEQ ER TABLET PO ONE ×2 (23:53→23:59)
[2017-11-10] MEDS: HYDROCHLOROTHIAZIDE 25 MG TABLET PO SCH ×2 (09:00→16:27)
[2017-11-10] MEDS: AmLODIPine BESYLATE 10 MG TABLET PO SCH (09:00)
[2017-11-10] MEDS: QUEtiapine FUMARATE 200 MG TABLET PO SCH ×2 (09:00→09:21)
[2017-11-10] MEDS: DOLUTEGRAVIR SODIUM 50 MG TABLET PO SCH ×2 (09:00→09:21)
[2017-11-10] MEDS: LISINOPRIL 20 MG TABLET PO SCH (09:00)
[2017-11-10] MEDS: ABACAVIR SULFATE 300 MG TABLET PO SCH ×2 (09:00→09:20)
[2017-11-10] MEDS: IBUPROFEN 800 MG TABLET PO SCH ×3 (09:00→16:28)
[2017-11-10 09:33] VITALS: BP 118/71
[2017-11-10] MEDS: LORazepam 2 MG TABLET PO PRN (16:28)
[2017-11-10] MEDS: QUEtiapine FUMARATE 300 MG TABLET PO SCH (20:33)
[2017-11-11 08:19] VITALS: BP 116/72
[2017-11-11] MEDS: HYDROCHLOROTHIAZIDE 25 MG TABLET PO SCH ×2 (09:00→16:22)
[2017-11-11] MEDS: IBUPROFEN 800 MG TABLET PO SCH ×2 (09:00→16:22)
[2017-11-11] MEDS: ABACAVIR SULFATE 300 MG TABLET PO SCH (09:00)
[2017-11-11] MEDS: AmLODIPine BESYLATE 10 MG TABLET PO SCH (09:00)
[2017-11-11] MEDS: DOLUTEGRAVIR SODIUM 50 MG TABLET PO SCH (09:00)
[2017-11-11] MEDS: LISINOPRIL 20 MG TABLET PO SCH (09:00)
[2017-11-11] MEDS: QUEtiapine FUMARATE 200 MG TABLET PO SCH (09:20)
[2017-11-11] MEDS: LORazepam 2 MG TABLET PO PRN (18:03)
[2017-11-11] MEDS: QUEtiapine FUMARATE 300 MG TABLET PO SCH (20:03)
[2017-11-12 07:04] VITALS: BP 120/81
[2017-11-12] MEDS: LORazepam 2 MG TABLET PO PRN ×2 (08:46→17:14)
[2017-11-12] MEDS: AmLODIPine BESYLATE 10 MG TABLET PO SCH (08:47)
[2017-11-12] MEDS: QUEtiapine FUMARATE 200 MG TABLET PO SCH (08:47)
[2017-11-12] MEDS: IBUPROFEN 800 MG TABLET PO SCH ×2 (09:00→17:14)
[2017-11-12] MEDS: HYDROCHLOROTHIAZIDE 25 MG TABLET PO SCH ×2 (09:00→17:14)
[2017-11-12] MEDS: LISINOPRIL 20 MG TABLET PO SCH (09:00)
[2017-11-12] MEDS: DOLUTEGRAVIR SODIUM 50 MG TABLET PO SCH (09:00)
[2017-11-12] MEDS: ABACAVIR SULFATE 300 MG TABLET PO SCH (09:00)
[2017-11-12] MEDS: QUEtiapine FUMARATE 300 MG TABLET PO SCH (20:08)
[2017-11-13 05:19] VITALS: BP 115/67
[2017-11-13] MEDS: QUEtiapine FUMARATE 200 MG TABLET PO SCH (09:00)
[2017-11-13] MEDS: ABACAVIR SULFATE 300 MG TABLET PO SCH (09:00)
[2017-11-13] MEDS: DOLUTEGRAVIR SODIUM 50 MG TABLET PO SCH (09:00)
[2017-11-13] MEDS: IBUPROFEN 800 MG TABLET PO SCH (09:56)
[2017-11-13] MEDS: LISINOPRIL 20 MG TABLET PO SCH (09:56)
[2017-11-13] MEDS: AmLODIPine BESYLATE 10 MG TABLET PO SCH (09:56)
[2017-11-13] MEDS: HYDROCHLOROTHIAZIDE 25 MG TABLET PO SCH (09:56)
[2017-11-13] MEDS: LORazepam 2 MG TABLET PO PRN (10:27)
[2017-11-13] MEDS ORDERED: QUET300T2 PO (13:05)
[2017-11-13] MEDS ORDERED: QUET200T PO (13:06)
[2017-11-13] MEDS ORDERED: IBUP-2071 PO (13:07)
[2017-11-13] MEDS ORDERED: HYDR25TA PO (13:08)
== END 2017-11-13 13:30 | disposition home or self-care (01) | DRG 750 ==
LOC: B2S 11-08 02:30
PROVIDERS: ADMIT Psychiatry & Neurology Child & Adolescent Psychiatry
DX: F25.1 Schizoaffective disorder, depressive type (principal); K73.9 Chronic hepatitis, unspecified; Z59.0 Homelessness; I10 Essential (primary) hypertension; F10.10 Alcohol abuse, uncomplicated; J44.9 Chronic obstructive pulmonary disease, unspecified; K21.9 Gastro-esophageal reflux disease without esophagitis; Z79.899 Other long term (current) drug therapy; Z88.8 Allergy status to other drugs, medicaments and biological substances
CPT/HCPCS: 83036; 84132; 84439; 84443; 87081; G0480

== ENCOUNTER 2018-04-20 00:07 | Inpatient (IN) | payer MEDICAID, OTHER ==
[~2018-04-20] VITALS: Ht 170.2 cm; Wt 72.6 kg
[~2018-04-20 00:07] MED LIST changes: -ABAC300T8 PO; -AMLO-512 PO; -DOLU50TA PO; +DSS100 PO; +HEPA500041 SQ; -HYDR25TA PO; -IBUP-2071 PO; -LAMI300T PO; -LISI-662 PO; +NAFC2FRO2 IVP; +PANT40TA25 PO; +QUET200T PO; -QUET50TA PO
[2018-04-20] MEDS ORDERED: HYDR25TA84 PO (01:04)
[2018-04-20] MEDS ORDERED: OXYC20 PO (01:04)
[2018-04-20] MEDS ORDERED: AMLO-511 PO (01:04)
[2018-04-20] MEDS ORDERED: QUET300T2 PO (01:04)
[2018-04-20] MEDS ORDERED: SENN-175 PO (01:04)
[2018-04-20] MEDS ORDERED: ABAC1TAB15 PO (01:04)
[2018-04-20] MEDS ORDERED: BUPR75 PO (01:04)
[2018-04-20] MEDS ORDERED: SULF1TAB92 PO (01:04)
[2018-04-20] MEDS ORDERED: LISI-661 PO (01:04)
[2018-04-20 01:36] LABS: BASOPHILS % (AUTO) 0.3 % (0.0-2.0); EOSINOPHILS % (AUTO) 0 % (1.0-6.0); HEMATOCRIT 31.6 % (41-53); HEMOGLOBIN 10.5 g/dL (13.5-17.5); LYMPHOCYTES # (AUTO) 2.2 K/uL (1.0-4.8); LYMPHOCYTES % (AUTO) 16.3 % (22.0-44.0); MEAN CORPUSCULAR HEMOGLOBIN 27.9 pg (26.0-34.0); MEAN CORPUSCULAR HGB CONC 33.2 G/dL (31.0-37.0); MEAN CORPUSCULAR VOLUME 84 fL (80-100); MONOCYTES # (AUTO) 0.8 K/uL (0.1-1.0); MONOCYTES % (AUTO) 6.4 % (2.0-9.0); NEUTROPHILS # (AUTO) 10.2 K/uL (1.8-7.7); PLATELET COUNT (AUTO) 470 K/uL (150-450); RED BLOOD CELL COUNT(AUTO) 3.76 MIL/uL (4.50-5.90)
[2018-04-20 01:53] LABS: ANION GAP 11 mmol/L (8-16); CALCIUM, TOTAL 9.5 mg/dL (8.8-10.5); CARBON DIOXIDE 24 mmol/L (22-29); CHLORIDE 100 mmol/L (98-107); CREATININE 1.08 mg/dL (0.60-1.30); GLOMERULAR FILTR. RATE CALC > 60 mL/min (>60); GLUCOSE,RANDOM 100 mg/dL (70-110); POTASSIUM 3.7 mmol/L (3.5-5.1); SODIUM SERUM 135 mmol/L (136-145); UREA NITROGEN, BLOOD 35 mg/dL (7-18)
[2018-04-20 01:57] LABS: ALANINE AMINOTRANSFERASE 81 U/L (12-78); ALBUMIN 3.9 g/dL (3.4-5.0); ALKALINE PHOSPHATASE 140 U/L (46-116); ASPARTATE AMINOTRANSFERASE 76 U/L (15-37); BILIRUBIN,TOTAL 0.9 mg/dL (0.1-1.0); TOTAL PROTEIN, SERUM 8.4 g/dL (6.4-8.2)
[2018-04-20] MEDS ORDERED: HALOPERIDOL 5 MG TABLET PO PRN (04:30)
[2018-04-20 04:44] LABS: AMPHET/METH SCREEN,URINE POSITIVE (NEGATIVE); BARBITURATE SCREEN, URINE NEGATIVE (NEGATIVE); BENZODIAZEPINES SCREEN,URINE NEGATIVE (NEGATIVE); CANNABINOID SCREEN,URINE NEGATIVE (NEGATIVE); COCAINE SCREEN,URINE NEGATIVE (NEGATIVE); METHADONE SCREEN, URINE NEGATIVE (NEGATIVE); OPIATE SCREEN,URINE NEGATIVE (NEGATIVE)
[2018-04-20 04:47] LABS: PHENCYCLIDINE SCREEN,URINE NEGATIVE (NEGATIVE)
[2018-04-20] MEDS: LORazepam 2 MG TABLET PO PRN (07:26)
[2018-04-20 07:41] LABS: APPEARANCE,URINE CLOUDY (CLEAR); BILIRUBIN,URINE NEGATIVE (NEGATIVE); GLUCOSE, URINE (UA) NEGATIVE (NEGATIVE); KETONES,URINE 15 mg/dL (NEGATIVE); LEUKOCYTE ESTERASE ,URINE SMALL (NEGATIVE); NITRATE,URINE NEGATIVE (NEGATIVE); OCCULT BLOOD,URINE LARGE (NEGATIVE); PROTEIN,URINE POS 1+ (NEGATIVE)
[2018-04-20 07:57] LABS: BACTERIA,URINE Rare /HPF (None Seen); SQUAMOUS EPITHELIAL CELL,UR Rare /LPF (None Seen)
[2018-04-20] MEDS ORDERED: ONDANSETRON HCL 4 MG TABLET PO PRN (19:30)
[2018-04-20] MEDS ORDERED: MAGNESIUM HYDROXIDE SUSPENSION 30 ML UDCUP PO PRN (19:30)
[2018-04-20] MEDS ORDERED: MAG HYDROX/AL HYDROX/SIMETH ES 30 ML SUSPENSION UDCUP PO PRN (19:30)
[2018-04-20] MEDS ORDERED: LOPERAMIDE HCL 2 MG CAPSULE PO PRN (19:30)
[2018-04-20] MEDS ORDERED: ACETAMINOPHEN 325 MG TABLET PO PRN (19:30)
[2018-04-20] MEDS ORDERED: PETROLATUM,WHITE 71 GM JELLY TP PRN (19:30)
[2018-04-20] MEDS ORDERED: DOCUSATE SODIUM 100 MG CAPSULE PO PRN (19:30)
[2018-04-20] MEDS ORDERED: SENNA 187 MG TABLET PO PRN (19:30)
[2018-04-20] MEDS ORDERED: BUPR-93 PO (20:10)
[2018-04-20] MEDS ORDERED: HEPA500018 SQ (20:10)
[2018-04-20] MEDS: IBUPROFEN 400 MG TABLET PO PRN (20:28)
[2018-04-20 20:29] VITALS: BP 115/85
[2018-04-20] MEDS ORDERED: -PHARMACY VACCINE NOTE- MISC ONE (21:30)
[2018-04-20] MEDS: HEPARIN SODIUM,PORCINE 5,000 UNITS/ML VIAL SQ SCH (23:54)
[2018-04-21 07:40] LABS: EOSINOPHILS % (AUTO) 1.3 % (1.0-6.0); HEMATOCRIT 31.3 % (41-53); HEMOGLOBIN 10.5 g/dL (13.5-17.5); LYMPHOCYTES # (AUTO) 0.8 K/uL (1.0-4.8); LYMPHOCYTES % (AUTO) 17.1 % (22.0-44.0); MEAN CORPUSCULAR HEMOGLOBIN 28.3 pg (26.0-34.0); MEAN CORPUSCULAR HGB CONC 33.5 G/dL (31.0-37.0); MEAN CORPUSCULAR VOLUME 85 fL (80-100); MONOCYTES # (AUTO) 0.4 K/uL (0.1-1.0); NEUTROPHILS # (AUTO) 3.4 K/uL (1.8-7.7); NEUTROPHILS % (AUTO) 72.6 % (40.0-70.0); PLATELET COUNT (AUTO) 409 K/uL (150-450); RED CELL DISTRIBUTION WIDTH 15.4 % (11.5-14.5)
[2018-04-21 08:02] LABS: HEMOGLOBIN A1C 6.2 % (4.5-6.2)
[2018-04-21 08:21] LABS: ALANINE AMINOTRANSFERASE 76 U/L (12-78); ALBUMIN 3.1 g/dL (3.4-5.0); ALKALINE PHOSPHATASE 109 U/L (46-116); ANION GAP 6 mmol/L (8-16); ASPARTATE AMINOTRANSFERASE 76 U/L (15-37); BILIRUBIN,TOTAL 0.5 mg/dL (0.1-1.0); CALCIUM, TOTAL 8.7 mg/dL (8.8-10.5); CARBON DIOXIDE 27 mmol/L (22-29); CHLORIDE 103 mmol/L (98-107); CHOL/HDL RATIO 3.1 (4.2-7.3); CHOLESTEROL 162 mg/dL (131-200); GLOMERULAR FILTR. RATE CALC > 60 mL/min (>60); GLUCOSE,RANDOM 107 mg/dL (70-110); HDL CHOLESTEROL 52 mg/dL (40-60); LDL CHOL (CALC.) 94 mg/dL (0-130); POTASSIUM 3.5 mmol/L (3.5-5.1); SODIUM SERUM 136 mmol/L (136-145); THYROID STIMULATING HORMONE 2.05 uIU/mL (0.36-3.74); TOTAL PROTEIN, SERUM 7.4 g/dL (6.4-8.2); TRIGLYCERIDES 82 mg/dL (15-150); UREA NITROGEN, BLOOD 26 mg/dL (7-18)
[2018-04-21] MEDS: LISINOPRIL 10 MG TABLET PO SCH (08:51)
[2018-04-21] MEDS: HydrALAZINE HCL 25 MG TABLET PO SCH (08:51)
[2018-04-21] MEDS: HEPARIN SODIUM,PORCINE 5,000 UNITS/ML VIAL SQ SCH ×4 (08:52→23:41)
[2018-04-21] MEDS: AmLODIPine BESYLATE 5 MG TABLET PO SCH (08:52)
[2018-04-21 09:12] VITALS: BP 137/76
[2018-04-21 10:56] VITALS: BP 128/72
[2018-04-21] MEDS: LORazepam 2 MG TABLET PO PRN (10:56)
[2018-04-21] MEDS: IBUPROFEN 400 MG TABLET PO PRN (10:56)
[2018-04-21] MEDS: BuPROPion HCL XL 150 MG ER TABLET PO SCH (11:56)
[2018-04-21] MEDS: QUEtiapine FUMARATE 200 MG TABLET PO SCH ×2 (11:56→21:00)
[2018-04-21 23:40] VITALS: BP 124/71
[2018-04-21] MEDS: OxyCODONE HCL 20 MG ER TABLET PO PRN (23:40)
[2018-04-22] MEDS: QUEtiapine FUMARATE 200 MG TABLET PO SCH ×2 (08:44→20:30)
[2018-04-22] MEDS: AmLODIPine BESYLATE 5 MG TABLET PO SCH (08:44)
[2018-04-22] MEDS: BuPROPion HCL XL 150 MG ER TABLET PO SCH (08:44)
[2018-04-22] MEDS: SULFAMETHOX/TRIMETH DS 800-160 MG/TABLET PO SCH (08:44)
[2018-04-22] MEDS: DOLUTEGRAVIR SODIUM 50 MG TABLET PO SCH (08:44)
[2018-04-22] MEDS: LISINOPRIL 10 MG TABLET PO SCH (08:45)
[2018-04-22] MEDS: ABACAVIR SULFATE 300 MG TABLET PO SCH (08:45)
[2018-04-22] MEDS: HEPARIN SODIUM,PORCINE 5,000 UNITS/ML VIAL SQ SCH ×2 (08:45→17:19)
[2018-04-22 08:46] VITALS: BP 129/62
[2018-04-22] MEDS: HydrALAZINE HCL 25 MG TABLET PO SCH (08:46)
[2018-04-22] MEDS: OxyCODONE HCL 20 MG ER TABLET PO PRN ×2 (08:46→20:30)
[2018-04-22 09:05] VITALS: BP 129/62
[2018-04-22 12:16] VITALS: BP 124/65
[2018-04-22] MEDS: IBUPROFEN 400 MG TABLET PO PRN (12:16)
[2018-04-22 20:30] VITALS: BP 95/57
[2018-04-22 21:30] VITALS: BP 90/56
[2018-04-23] MEDS: IBUPROFEN 400 MG TABLET PO PRN (00:57)
[2018-04-23 01:06] VITALS: BP 100/64
[2018-04-23 08:16] VITALS: BP 104/60
[2018-04-23] MEDS: LORazepam 2 MG TABLET PO PRN (08:22)
[2018-04-23] MEDS: BuPROPion HCL XL 150 MG ER TABLET PO SCH (08:22)
[2018-04-23] MEDS: AmLODIPine BESYLATE 5 MG TABLET PO SCH (08:22)
[2018-04-23] MEDS: QUEtiapine FUMARATE 200 MG TABLET PO SCH ×2 (08:22→20:21)
[2018-04-23] MEDS: SULFAMETHOX/TRIMETH DS 800-160 MG/TABLET PO SCH (08:22)
[2018-04-23] MEDS: HydrALAZINE HCL 25 MG TABLET PO SCH (08:22)
[2018-04-23] MEDS: LISINOPRIL 10 MG TABLET PO SCH (08:22)
[2018-04-23] MEDS: DOLUTEGRAVIR SODIUM 50 MG TABLET PO SCH (08:23)
[2018-04-23] MEDS: ABACAVIR SULFATE 300 MG TABLET PO SCH (08:23)
[2018-04-23] MEDS: HEPARIN SODIUM,PORCINE 5,000 UNITS/ML VIAL SQ SCH ×4 (08:25→23:54)
[2018-04-23] MEDS: OxyCODONE HCL 20 MG ER TABLET PO PRN ×2 (12:22→20:22)
[2018-04-23 16:49] VITALS: BP 114/82
[2018-04-23 20:28] VITALS: BP 115/63
[2018-04-23 21:25] VITALS: BP 111/67
[2018-04-24] MEDS: HydrALAZINE HCL 25 MG TABLET PO SCH (07:49)
[2018-04-24] MEDS: SULFAMETHOX/TRIMETH DS 800-160 MG/TABLET PO SCH (07:50)
[2018-04-24] MEDS: AmLODIPine BESYLATE 5 MG TABLET PO SCH (07:51)
[2018-04-24] MEDS: QUEtiapine FUMARATE 200 MG TABLET PO SCH ×2 (07:52→20:51)
[2018-04-24] MEDS: LISINOPRIL 10 MG TABLET PO SCH (07:53)
[2018-04-24] MEDS: BuPROPion HCL XL 150 MG ER TABLET PO SCH (07:53)
[2018-04-24] MEDS: DOLUTEGRAVIR SODIUM 50 MG TABLET PO SCH (07:53)
[2018-04-24] MEDS: OxyCODONE HCL 20 MG ER TABLET PO PRN ×2 (07:54→15:58)
[2018-04-24] MEDS: ABACAVIR SULFATE 300 MG TABLET PO SCH (07:54)
[2018-04-24 08:00] VITALS: BP 129/79
[2018-04-24] MEDS: HEPARIN SODIUM,PORCINE 5,000 UNITS/ML VIAL SQ SCH ×3 (08:07→23:53)
[2018-04-24 12:22] VITALS: BP 100/60
[2018-04-24] MEDS: IBUPROFEN 400 MG TABLET PO PRN ×2 (12:22→20:55)
[2018-04-24 12:27] VITALS: BP 100/60
[2018-04-24 15:58] VITALS: BP 111/63
[2018-04-24 20:55] VITALS: BP 122/71
[2018-04-24 23:52] VITALS: BP 123/80
[2018-04-25] MEDS: OxyCODONE HCL 20 MG ER TABLET PO PRN ×3 (00:27→17:04)
[2018-04-25] MEDS: HEPARIN SODIUM,PORCINE 5,000 UNITS/ML VIAL SQ SCH ×2 (08:54→17:02)
[2018-04-25] MEDS: ABACAVIR SULFATE 300 MG TABLET PO SCH (08:55)
[2018-04-25] MEDS: SULFAMETHOX/TRIMETH DS 800-160 MG/TABLET PO SCH (08:55)
[2018-04-25 08:56] VITALS: BP 96/56
[2018-04-25] MEDS: QUEtiapine FUMARATE 200 MG TABLET PO SCH ×2 (08:56→20:44)
[2018-04-25] MEDS: AmLODIPine BESYLATE 5 MG TABLET PO SCH (08:57)
[2018-04-25] MEDS: DOLUTEGRAVIR SODIUM 50 MG TABLET PO SCH (08:57)
[2018-04-25] MEDS: BuPROPion HCL XL 150 MG ER TABLET PO SCH (08:57)
[2018-04-25] MEDS: LISINOPRIL 10 MG TABLET PO SCH (08:57)
[2018-04-25] MEDS: HydrALAZINE HCL 25 MG TABLET PO SCH (08:58)
[2018-04-25 09:55] VITALS: BP 100/57
[2018-04-25 13:23] VITALS: BP 111/65
[2018-04-25] MEDS: IBUPROFEN 400 MG TABLET PO PRN ×2 (13:23→17:05)
[2018-04-25 17:04] VITALS: BP 115/80
[2018-04-25 18:04] VITALS: BP 118/78
[2018-04-26] MEDS: HEPARIN SODIUM,PORCINE 5,000 UNITS/ML VIAL SQ SCH ×3 (00:52→16:11)
[2018-04-26 00:59] VITALS: BP 116/74
[2018-04-26 02:00] VITALS: BP 110/88
[2018-04-26] MEDS: IBUPROFEN 400 MG TABLET PO PRN (02:02)
[2018-04-26] MEDS: ZOLPIDEM TARTRATE 10 MG TABLET PO PRN (02:02)
[2018-04-26 08:39] VITALS: BP 122/55
[2018-04-26] MEDS: DOLUTEGRAVIR SODIUM 50 MG TABLET PO SCH (08:39)
[2018-04-26] MEDS: QUEtiapine FUMARATE 200 MG TABLET PO SCH ×2 (08:39→20:54)
[2018-04-26] MEDS: AmLODIPine BESYLATE 5 MG TABLET PO SCH (08:40)
[2018-04-26] MEDS: SULFAMETHOX/TRIMETH DS 800-160 MG/TABLET PO SCH (08:40)
[2018-04-26] MEDS: ABACAVIR SULFATE 300 MG TABLET PO SCH (08:40)
[2018-04-26] MEDS: BuPROPion HCL XL 150 MG ER TABLET PO SCH (08:40)
[2018-04-26] MEDS: LISINOPRIL 10 MG TABLET PO SCH (08:41)
[2018-04-26] MEDS: HydrALAZINE HCL 25 MG TABLET PO SCH (08:41)
[2018-04-26 13:10] VITALS: BP 111/76
[2018-04-26] MEDS: OxyCODONE HCL 20 MG ER TABLET PO PRN (13:10)
[2018-04-26 17:06] VITALS: BP 111/72
[2018-04-27] MEDS: HEPARIN SODIUM,PORCINE 5,000 UNITS/ML VIAL SQ SCH ×3 (01:32→16:30)
[2018-04-27 05:47] VITALS: BP 116/74
[2018-04-27 09:02] VITALS: BP 113/73
[2018-04-27] MEDS: HydrALAZINE HCL 25 MG TABLET PO SCH (10:16)
[2018-04-27] MEDS: AmLODIPine BESYLATE 5 MG TABLET PO SCH (10:16)
[2018-04-27] MEDS: ABACAVIR SULFATE 300 MG TABLET PO SCH (10:16)
[2018-04-27] MEDS: QUEtiapine FUMARATE 200 MG TABLET PO SCH ×2 (10:16→21:55)
[2018-04-27] MEDS: BuPROPion HCL XL 150 MG ER TABLET PO SCH (10:16)
[2018-04-27] MEDS: DOLUTEGRAVIR SODIUM 50 MG TABLET PO SCH (10:16)
[2018-04-27] MEDS: SULFAMETHOX/TRIMETH DS 800-160 MG/TABLET PO SCH (10:16)
[2018-04-27] MEDS: LISINOPRIL 10 MG TABLET PO SCH (10:16)
[2018-04-27 11:15] VITALS: BP 124/79
[2018-04-27] MEDS: OxyCODONE HCL 20 MG ER TABLET PO PRN ×2 (11:17→21:58)
[2018-04-27 21:58] VITALS: BP 139/87
[2018-04-27 22:58] VITALS: BP 130/80
[2018-04-28] MEDS: HEPARIN SODIUM,PORCINE 5,000 UNITS/ML VIAL SQ SCH ×4 (00:08→23:57)
[2018-04-28] MEDS: DOLUTEGRAVIR SODIUM 50 MG TABLET PO SCH (08:47)
[2018-04-28] MEDS: SULFAMETHOX/TRIMETH DS 800-160 MG/TABLET PO SCH (08:47)
[2018-04-28] MEDS: QUEtiapine FUMARATE 200 MG TABLET PO SCH ×2 (08:48→21:20)
[2018-04-28] MEDS: HydrALAZINE HCL 25 MG TABLET PO SCH (08:48)
[2018-04-28] MEDS: LISINOPRIL 10 MG TABLET PO SCH (08:48)
[2018-04-28] MEDS: BuPROPion HCL XL 150 MG ER TABLET PO SCH (08:48)
[2018-04-28] MEDS: ABACAVIR SULFATE 300 MG TABLET PO SCH (08:48)
[2018-04-28] MEDS: AmLODIPine BESYLATE 5 MG TABLET PO SCH (08:48)
[2018-04-28 12:04] VITALS: BP 126/76
[2018-04-28 13:35] VITALS: BP 126/76
[2018-04-28] MEDS: OxyCODONE HCL 20 MG ER TABLET PO PRN (13:37)
[2018-04-28 17:11] VITALS: BP 113/74
[2018-04-28] MEDS: IBUPROFEN 400 MG TABLET PO PRN (17:11)
[2018-04-29] MEDS: QUEtiapine FUMARATE 200 MG TABLET PO SCH ×2 (08:34→21:42)
[2018-04-29] MEDS: LISINOPRIL 10 MG TABLET PO SCH (08:34)
[2018-04-29] MEDS: AmLODIPine BESYLATE 5 MG TABLET PO SCH (08:34)
[2018-04-29] MEDS: ABACAVIR SULFATE 300 MG TABLET PO SCH (08:34)
[2018-04-29] MEDS: BuPROPion HCL XL 150 MG ER TABLET PO SCH (08:34)
[2018-04-29] MEDS: DOLUTEGRAVIR SODIUM 50 MG TABLET PO SCH (08:35)
[2018-04-29] MEDS: HydrALAZINE HCL 25 MG TABLET PO SCH (08:35)
[2018-04-29] MEDS: SULFAMETHOX/TRIMETH DS 800-160 MG/TABLET PO SCH (08:36)
[2018-04-29] MEDS: HEPARIN SODIUM,PORCINE 5,000 UNITS/ML VIAL SQ SCH ×3 (08:43→23:46)
[2018-04-29 11:02] VITALS: BP 113/75
[2018-04-29] MEDS: OxyCODONE HCL 20 MG ER TABLET PO PRN ×2 (11:05→22:00)
[2018-04-29 22:00] VITALS: BP 127/77
[2018-04-29 22:19] VITALS: BP 125/76
[2018-04-30] MEDS: LISINOPRIL 10 MG TABLET PO SCH (08:25)
[2018-04-30] MEDS: SULFAMETHOX/TRIMETH DS 800-160 MG/TABLET PO SCH (08:25)
[2018-04-30] MEDS: BuPROPion HCL XL 150 MG ER TABLET PO SCH (08:25)
[2018-04-30] MEDS: AmLODIPine BESYLATE 5 MG TABLET PO SCH (08:25)
[2018-04-30] MEDS: QUEtiapine FUMARATE 200 MG TABLET PO SCH ×2 (08:25→20:21)
[2018-04-30] MEDS: HydrALAZINE HCL 25 MG TABLET PO SCH (08:26)
[2018-04-30] MEDS: DOLUTEGRAVIR SODIUM 50 MG TABLET PO SCH (08:26)
[2018-04-30] MEDS: ABACAVIR SULFATE 300 MG TABLET PO SCH (08:26)
[2018-04-30] MEDS: HEPARIN SODIUM,PORCINE 5,000 UNITS/ML VIAL SQ SCH ×2 (08:54→16:43)
[2018-04-30 08:55] VITALS: BP 107/61
[2018-04-30] MEDS: OxyCODONE HCL 20 MG ER TABLET PO PRN ×2 (08:58→19:11)
[2018-04-30] MEDS: IBUPROFEN 400 MG TABLET PO PRN (12:40)
[2018-04-30 16:41] VITALS: BP 114/64
[2018-04-30 19:11] VITALS: BP 112/67
[2018-05-01] MEDS: HEPARIN SODIUM,PORCINE 5,000 UNITS/ML VIAL SQ SCH ×3 (01:08→16:30)
[2018-05-01 08:10] VITALS: BP 128/78
[2018-05-01] MEDS: QUEtiapine FUMARATE 200 MG TABLET PO SCH ×2 (08:13→20:52)
[2018-05-01] MEDS: LISINOPRIL 10 MG TABLET PO SCH (08:13)
[2018-05-01] MEDS: SULFAMETHOX/TRIMETH DS 800-160 MG/TABLET PO SCH (08:13)
[2018-05-01] MEDS: AmLODIPine BESYLATE 5 MG TABLET PO SCH (08:13)
[2018-05-01] MEDS: OxyCODONE HCL 20 MG ER TABLET PO PRN ×2 (08:13→17:26)
[2018-05-01] MEDS: BuPROPion HCL XL 150 MG ER TABLET PO SCH (08:13)
[2018-05-01] MEDS: HydrALAZINE HCL 25 MG TABLET PO SCH (08:14)
[2018-05-01] MEDS: ABACAVIR SULFATE 300 MG TABLET PO SCH (08:14)
[2018-05-01] MEDS: DOLUTEGRAVIR SODIUM 50 MG TABLET PO SCH (08:14)
[2018-05-01 17:25] VITALS: BP 119/74
[2018-05-02 08:15] VITALS: BP 109/59
[2018-05-02] MEDS: LISINOPRIL 10 MG TABLET PO SCH (08:19)
[2018-05-02] MEDS: AmLODIPine BESYLATE 5 MG TABLET PO SCH (08:19)
[2018-05-02] MEDS: OxyCODONE HCL 20 MG ER TABLET PO PRN ×2 (08:19→17:32)
[2018-05-02] MEDS: QUEtiapine FUMARATE 200 MG TABLET PO SCH ×2 (08:19→20:40)
[2018-05-02] MEDS: BuPROPion HCL XL 150 MG ER TABLET PO SCH (08:19)
[2018-05-02] MEDS: SULFAMETHOX/TRIMETH DS 800-160 MG/TABLET PO SCH (08:19)
[2018-05-02] MEDS: ABACAVIR SULFATE 300 MG TABLET PO SCH (08:20)
[2018-05-02] MEDS: HydrALAZINE HCL 25 MG TABLET PO SCH (08:20)
[2018-05-02] MEDS: DOLUTEGRAVIR SODIUM 50 MG TABLET PO SCH (08:20)
[2018-05-02] MEDS: HEPARIN SODIUM,PORCINE 5,000 UNITS/ML VIAL SQ SCH ×4 (08:27→23:56)
[2018-05-02 16:30] VITALS: BP 124/81
[2018-05-02 17:32] VITALS: BP 121/80
[2018-05-03] MEDS: QUEtiapine FUMARATE 200 MG TABLET PO SCH ×3 (09:00→21:34)
[2018-05-03] MEDS: HydrALAZINE HCL 25 MG TABLET PO SCH (10:07)
[2018-05-03] MEDS: DOLUTEGRAVIR SODIUM 50 MG TABLET PO SCH (10:07)
[2018-05-03] MEDS: HEPARIN SODIUM,PORCINE 5,000 UNITS/ML VIAL SQ SCH ×2 (10:07→16:00)
[2018-05-03] MEDS: AmLODIPine BESYLATE 5 MG TABLET PO SCH (10:07)
[2018-05-03] MEDS: ABACAVIR SULFATE 300 MG TABLET PO SCH (10:07)
[2018-05-03] MEDS: LISINOPRIL 10 MG TABLET PO SCH (10:08)
[2018-05-03] MEDS: SULFAMETHOX/TRIMETH DS 800-160 MG/TABLET PO SCH (10:08)
[2018-05-03] MEDS: BuPROPion HCL XL 150 MG ER TABLET PO SCH (10:08)
[2018-05-03 11:04] VITALS: BP 120/71
[2018-05-03] MEDS: OxyCODONE HCL 20 MG ER TABLET PO PRN ×2 (11:04→22:20)
[2018-05-03 17:00] VITALS: BP 130/82
[2018-05-03 22:20] VITALS: BP 114/87
[2018-05-03 23:20] VITALS: BP 105/68
[2018-05-04] MEDS: BuPROPion HCL XL 150 MG ER TABLET PO SCH (09:14)
[2018-05-04] MEDS: LISINOPRIL 10 MG TABLET PO SCH (09:15)
[2018-05-04] MEDS: AmLODIPine BESYLATE 5 MG TABLET PO SCH (09:15)
[2018-05-04] MEDS: QUEtiapine FUMARATE 200 MG TABLET PO SCH ×2 (09:15→20:53)
[2018-05-04] MEDS: SULFAMETHOX/TRIMETH DS 800-160 MG/TABLET PO SCH (09:16)
[2018-05-04] MEDS: HydrALAZINE HCL 25 MG TABLET PO SCH (09:16)
[2018-05-04] MEDS: DOLUTEGRAVIR SODIUM 50 MG TABLET PO SCH (09:17)
[2018-05-04] MEDS: HEPARIN SODIUM,PORCINE 5,000 UNITS/ML VIAL SQ SCH ×4 (09:17→17:14)
[2018-05-04] MEDS: ABACAVIR SULFATE 300 MG TABLET PO SCH (09:17)
[2018-05-04 09:28] VITALS: BP 115/76
[2018-05-04] MEDS: OxyCODONE HCL 20 MG ER TABLET PO PRN ×2 (09:28→18:05)
[2018-05-04 16:42] VITALS: BP 102/63
[2018-05-05] MEDS: HEPARIN SODIUM,PORCINE 5,000 UNITS/ML VIAL SQ SCH ×3 (00:42→16:57)
[2018-05-05] MEDS: AmLODIPine BESYLATE 5 MG TABLET PO SCH (08:33)
[2018-05-05] MEDS: BuPROPion HCL XL 150 MG ER TABLET PO SCH (08:33)
[2018-05-05] MEDS: ABACAVIR SULFATE 300 MG TABLET PO SCH (08:33)
[2018-05-05] MEDS: HydrALAZINE HCL 25 MG TABLET PO SCH (08:33)
[2018-05-05] MEDS: DOLUTEGRAVIR SODIUM 50 MG TABLET PO SCH (08:33)
[2018-05-05] MEDS: LISINOPRIL 10 MG TABLET PO SCH (08:33)
[2018-05-05] MEDS: QUEtiapine FUMARATE 200 MG TABLET PO SCH ×2 (08:33→20:05)
[2018-05-05 08:34] VITALS: BP 114/74
[2018-05-05] MEDS: SULFAMETHOX/TRIMETH DS 800-160 MG/TABLET PO SCH (08:34)
[2018-05-05] MEDS: OxyCODONE HCL 20 MG ER TABLET PO PRN ×2 (08:34→16:57)
[2018-05-05 16:33] VITALS: BP 105/66
[2018-05-05 16:57] VITALS: BP 105/66
[2018-05-06] MEDS: HEPARIN SODIUM,PORCINE 5,000 UNITS/ML VIAL SQ SCH ×4 (00:33→23:53)
[2018-05-06] MEDS: HydrALAZINE HCL 25 MG TABLET PO SCH (08:12)
[2018-05-06] MEDS: DOLUTEGRAVIR SODIUM 50 MG TABLET PO SCH (08:12)
[2018-05-06] MEDS: AmLODIPine BESYLATE 5 MG TABLET PO SCH (08:13)
[2018-05-06] MEDS: ABACAVIR SULFATE 300 MG TABLET PO SCH (08:13)
[2018-05-06] MEDS: BuPROPion HCL XL 150 MG ER TABLET PO SCH (08:13)
[2018-05-06] MEDS: QUEtiapine FUMARATE 200 MG TABLET PO SCH ×2 (08:13→21:03)
[2018-05-06] MEDS: SULFAMETHOX/TRIMETH DS 800-160 MG/TABLET PO SCH (08:13)
[2018-05-06] MEDS: LISINOPRIL 10 MG TABLET PO SCH (08:13)
[2018-05-06 09:19] VITALS: BP 107/63
[2018-05-06] MEDS: OxyCODONE HCL 20 MG ER TABLET PO PRN ×2 (14:30→23:54)
[2018-05-06 22:35] VITALS: BP 111/69
[2018-05-07] VITALS: BP 108/71
[2018-05-07] MEDS: BuPROPion HCL XL 150 MG ER TABLET PO SCH (08:23)
[2018-05-07] MEDS: HEPARIN SODIUM,PORCINE 5,000 UNITS/ML VIAL SQ SCH ×2 (08:23→17:29)
[2018-05-07] MEDS: DOLUTEGRAVIR SODIUM 50 MG TABLET PO SCH (08:23)
[2018-05-07] MEDS: HydrALAZINE HCL 25 MG TABLET PO SCH (08:24)
[2018-05-07] MEDS: ABACAVIR SULFATE 300 MG TABLET PO SCH (08:24)
[2018-05-07] MEDS: AmLODIPine BESYLATE 5 MG TABLET PO SCH (08:25)
[2018-05-07] MEDS: SULFAMETHOX/TRIMETH DS 800-160 MG/TABLET PO SCH (08:25)
[2018-05-07] MEDS: QUEtiapine FUMARATE 200 MG TABLET PO SCH ×2 (08:25→20:09)
[2018-05-07] MEDS: LISINOPRIL 10 MG TABLET PO SCH (08:25)
[2018-05-07] MEDS: OxyCODONE HCL 20 MG ER TABLET PO PRN (09:20)
[2018-05-07 17:26] VITALS: BP 112/70
[2018-05-08] MEDS: HEPARIN SODIUM,PORCINE 5,000 UNITS/ML VIAL SQ SCH ×3 (08:00→17:48)
[2018-05-08 09:31] VITALS: BP 119/66
[2018-05-08] MEDS: OxyCODONE HCL 20 MG ER TABLET PO PRN ×2 (09:51→20:20)
[2018-05-08] MEDS: BuPROPion HCL XL 150 MG ER TABLET PO SCH (09:52)
[2018-05-08] MEDS: SULFAMETHOX/TRIMETH DS 800-160 MG/TABLET PO SCH (09:52)
[2018-05-08] MEDS: QUEtiapine FUMARATE 100 MG TABLET PO SCH (09:52)
[2018-05-08] MEDS: AmLODIPine BESYLATE 5 MG TABLET PO SCH (09:52)
[2018-05-08] MEDS: DOLUTEGRAVIR SODIUM 50 MG TABLET PO SCH (09:53)
[2018-05-08] MEDS: LISINOPRIL 10 MG TABLET PO SCH (09:53)
[2018-05-08] MEDS: HydrALAZINE HCL 25 MG TABLET PO SCH (09:54)
[2018-05-08] MEDS: ABACAVIR SULFATE 300 MG TABLET PO SCH (09:55)
[2018-05-08 20:20] VITALS: BP 127/79
[2018-05-08 20:57] VITALS: BP 106/70
[2018-05-08 21:20] VITALS: BP 140/89
[2018-05-08] MEDS: QUEtiapine FUMARATE 200 MG TABLET PO SCH (22:33)
[2018-05-09] MEDS: HEPARIN SODIUM,PORCINE 5,000 UNITS/ML VIAL SQ SCH ×3 (00:24→16:00)
[2018-05-09 01:14] VITALS: BP 135/81
[2018-05-09 08:05] VITALS: BP 104/64
[2018-05-09] MEDS: BuPROPion HCL XL 150 MG ER TABLET PO SCH (10:37)
[2018-05-09] MEDS: AmLODIPine BESYLATE 5 MG TABLET PO SCH (10:37)
[2018-05-09] MEDS: SULFAMETHOX/TRIMETH DS 800-160 MG/TABLET PO SCH (10:37)
[2018-05-09] MEDS: LISINOPRIL 10 MG TABLET PO SCH (10:37)
[2018-05-09] MEDS: QUEtiapine FUMARATE 100 MG TABLET PO SCH (10:37)
[2018-05-09] MEDS: HydrALAZINE HCL 25 MG TABLET PO SCH (10:38)
[2018-05-09] MEDS: ABACAVIR SULFATE 300 MG TABLET PO SCH (10:39)
[2018-05-09] MEDS: DOLUTEGRAVIR SODIUM 50 MG TABLET PO SCH (10:39)
[2018-05-09 15:32] VITALS: BP 107/88
[2018-05-09] MEDS: OxyCODONE HCL 20 MG ER TABLET PO PRN (15:32)
[2018-05-09 17:24] VITALS: BP 107/88
[2018-05-09] MEDS: QUEtiapine FUMARATE 200 MG TABLET PO SCH (21:16)
[2018-05-10] MEDS: HEPARIN SODIUM,PORCINE 5,000 UNITS/ML VIAL SQ SCH ×3 (00:09→16:53)
[2018-05-10 01:04] VITALS: BP 125/79
[2018-05-10 08:25] VITALS: BP 132/87
[2018-05-10] MEDS: SULFAMETHOX/TRIMETH DS 800-160 MG/TABLET PO SCH (08:28)
[2018-05-10] MEDS: HydrALAZINE HCL 25 MG TABLET PO SCH (08:28)
[2018-05-10] MEDS: QUEtiapine FUMARATE 100 MG TABLET PO SCH (08:29)
[2018-05-10] MEDS: DOLUTEGRAVIR SODIUM 50 MG TABLET PO SCH (08:29)
[2018-05-10] MEDS: AmLODIPine BESYLATE 5 MG TABLET PO SCH (08:29)
[2018-05-10] MEDS: BuPROPion HCL XL 150 MG ER TABLET PO SCH (08:29)
[2018-05-10] MEDS: LISINOPRIL 10 MG TABLET PO SCH (08:29)
[2018-05-10] MEDS: OxyCODONE HCL 20 MG ER TABLET PO PRN ×2 (08:30→23:56)
[2018-05-10] MEDS: ABACAVIR SULFATE 300 MG TABLET PO SCH (08:30)
[2018-05-10 17:40] VITALS: BP 107/67
[2018-05-10] MEDS: QUEtiapine FUMARATE 200 MG TABLET PO SCH (22:17)
[2018-05-10 23:52] VITALS: BP 119/75
[2018-05-11] MEDS: HEPARIN SODIUM,PORCINE 5,000 UNITS/ML VIAL SQ SCH ×4 (08:00→23:54)
[2018-05-11 08:45] VITALS: BP 133/91
[2018-05-11] MEDS: HydrALAZINE HCL 25 MG TABLET PO SCH (09:46)
[2018-05-11] MEDS: AmLODIPine BESYLATE 5 MG TABLET PO SCH (09:47)
[2018-05-11] MEDS: ABACAVIR SULFATE 300 MG TABLET PO SCH (09:47)
[2018-05-11] MEDS: LISINOPRIL 10 MG TABLET PO SCH (09:47)
[2018-05-11] MEDS: BuPROPion HCL XL 150 MG ER TABLET PO SCH (09:48)
[2018-05-11] MEDS: DOLUTEGRAVIR SODIUM 50 MG TABLET PO SCH (09:48)
[2018-05-11] MEDS: QUEtiapine FUMARATE 100 MG TABLET PO SCH (09:49)
[2018-05-11] MEDS: OxyCODONE HCL 20 MG ER TABLET PO PRN (10:01)
[2018-05-11 17:00] VITALS: BP 122/78
[2018-05-11] MEDS: QUEtiapine FUMARATE 200 MG TABLET PO SCH (21:46)
[2018-05-12] MEDS: HEPARIN SODIUM,PORCINE 5,000 UNITS/ML VIAL SQ SCH ×2 (08:00→16:45)
[2018-05-12 08:05] VITALS: BP 110/63
[2018-05-12] MEDS: QUEtiapine FUMARATE 100 MG TABLET PO SCH (09:11)
[2018-05-12] MEDS: AmLODIPine BESYLATE 5 MG TABLET PO SCH (09:11)
[2018-05-12] MEDS: HydrALAZINE HCL 25 MG TABLET PO SCH (09:11)
[2018-05-12] MEDS: LISINOPRIL 10 MG TABLET PO SCH (09:12)
[2018-05-12] MEDS: DOLUTEGRAVIR SODIUM 50 MG TABLET PO SCH (09:12)
[2018-05-12] MEDS: BuPROPion HCL XL 150 MG ER TABLET PO SCH (09:12)
[2018-05-12] MEDS: ABACAVIR SULFATE 300 MG TABLET PO SCH (09:12)
[2018-05-12 12:41] VITALS: BP 112/68
[2018-05-12] MEDS: OxyCODONE HCL 20 MG ER TABLET PO PRN (12:41)
[2018-05-12 18:32] VITALS: BP 109/67
[2018-05-12] MEDS: QUEtiapine FUMARATE 200 MG TABLET PO SCH (20:32)
[2018-05-13] MEDS: HEPARIN SODIUM,PORCINE 5,000 UNITS/ML VIAL SQ SCH ×3 (08:00→16:17)
[2018-05-13] MEDS: BuPROPion HCL XL 150 MG ER TABLET PO SCH (09:37)
[2018-05-13] MEDS: ABACAVIR SULFATE 300 MG TABLET PO SCH (09:37)
[2018-05-13] MEDS: DOLUTEGRAVIR SODIUM 50 MG TABLET PO SCH (09:37)
[2018-05-13] MEDS: AmLODIPine BESYLATE 5 MG TABLET PO SCH (09:37)
[2018-05-13] MEDS: LISINOPRIL 10 MG TABLET PO SCH (09:37)
[2018-05-13] MEDS: QUEtiapine FUMARATE 100 MG TABLET PO SCH (09:37)
[2018-05-13] MEDS: HydrALAZINE HCL 25 MG TABLET PO SCH (09:37)
[2018-05-13] MEDS ORDERED: CYCLOBENZAPRINE HCL 10 MG TABLET PO PRN (11:45)
[2018-05-13 14:31] VITALS: BP 124/64
[2018-05-13] MEDS: OxyCODONE HCL 20 MG ER TABLET PO PRN (16:11)
[2018-05-13 16:14] VITALS: BP 114/70
[2018-05-13 18:24] VITALS: BP 114/70
[2018-05-13] MEDS: QUEtiapine FUMARATE 200 MG TABLET PO SCH (20:56)
[2018-05-14] MEDS: HEPARIN SODIUM,PORCINE 5,000 UNITS/ML VIAL SQ SCH ×3 (00:04→16:00)
[2018-05-14 00:17] VITALS: BP 137/83
[2018-05-14] MEDS: OxyCODONE HCL 20 MG ER TABLET PO PRN ×3 (00:17→22:26)
[2018-05-14] MEDS: BuPROPion HCL XL 150 MG ER TABLET PO SCH (08:06)
[2018-05-14] MEDS: AmLODIPine BESYLATE 5 MG TABLET PO SCH (08:06)
[2018-05-14] MEDS: HydrALAZINE HCL 25 MG TABLET PO SCH (08:06)
[2018-05-14] MEDS: DOLUTEGRAVIR SODIUM 50 MG TABLET PO SCH (08:07)
[2018-05-14] MEDS: ABACAVIR SULFATE 300 MG TABLET PO SCH (08:07)
[2018-05-14] MEDS: LISINOPRIL 10 MG TABLET PO SCH (08:07)
[2018-05-14] MEDS: QUEtiapine FUMARATE 100 MG TABLET PO SCH (08:07)
[2018-05-14 08:30] VITALS: BP 122/87
[2018-05-14 18:11] VITALS: BP 96/62
[2018-05-14 22:26] VITALS: BP 149/89
[2018-05-14] MEDS: QUEtiapine FUMARATE 200 MG TABLET PO SCH (22:26)
[2018-05-14 23:26] VITALS: BP 142/87
[2018-05-15] MEDS: HEPARIN SODIUM,PORCINE 5,000 UNITS/ML VIAL SQ SCH ×3 (00:31→16:34)
[2018-05-15 08:00] VITALS: BP 105/67
[2018-05-15] MEDS: ABACAVIR SULFATE 300 MG TABLET PO SCH (08:04)
[2018-05-15] MEDS: AmLODIPine BESYLATE 5 MG TABLET PO SCH (08:04)
[2018-05-15] MEDS: HydrALAZINE HCL 25 MG TABLET PO SCH (08:05)
[2018-05-15] MEDS: OxyCODONE HCL 20 MG ER TABLET PO PRN ×2 (08:05→16:34)
[2018-05-15] MEDS: BuPROPion HCL XL 150 MG ER TABLET PO SCH (08:05)
[2018-05-15] MEDS: DOLUTEGRAVIR SODIUM 50 MG TABLET PO SCH (08:05)
[2018-05-15] MEDS: QUEtiapine FUMARATE 100 MG TABLET PO SCH (08:05)
[2018-05-15] MEDS: LISINOPRIL 10 MG TABLET PO SCH (08:05)
[2018-05-15 16:00] VITALS: BP 98/65
[2018-05-15] MEDS: QUEtiapine FUMARATE 200 MG TABLET PO SCH (22:18)
[2018-05-16] MEDS: HEPARIN SODIUM,PORCINE 5,000 UNITS/ML VIAL SQ SCH ×3 (08:00→16:30)
[2018-05-16 08:30] VITALS: BP 105/67
[2018-05-16] MEDS: AmLODIPine BESYLATE 5 MG TABLET PO SCH (09:00)
[2018-05-16] MEDS: HydrALAZINE HCL 25 MG TABLET PO SCH (09:00)
[2018-05-16] MEDS: LISINOPRIL 10 MG TABLET PO SCH (09:00)
[2018-05-16] MEDS: DOLUTEGRAVIR SODIUM 50 MG TABLET PO SCH (10:21)
[2018-05-16] MEDS: BuPROPion HCL XL 150 MG ER TABLET PO SCH (10:21)
[2018-05-16] MEDS: QUEtiapine FUMARATE 100 MG TABLET PO SCH (10:21)
[2018-05-16] MEDS: ABACAVIR SULFATE 300 MG TABLET PO SCH (10:21)
[2018-05-16 14:35] VITALS: BP 114/72
[2018-05-16] MEDS: OxyCODONE HCL 20 MG ER TABLET PO PRN (14:35)
[2018-05-16 16:53] VITALS: BP 130/83
[2018-05-16] MEDS: QUEtiapine FUMARATE 200 MG TABLET PO SCH (22:00)
[2018-05-17] MEDS: HydrALAZINE HCL 25 MG TABLET PO SCH (09:00)
[2018-05-17] MEDS: DOLUTEGRAVIR SODIUM 50 MG TABLET PO SCH (09:00)
[2018-05-17] MEDS: LISINOPRIL 10 MG TABLET PO SCH (09:00)
[2018-05-17] MEDS: ABACAVIR SULFATE 300 MG TABLET PO SCH (09:00)
[2018-05-17] MEDS: AmLODIPine BESYLATE 5 MG TABLET PO SCH (09:00)
[2018-05-17 09:33] VITALS: BP 106/77
[2018-05-17 09:55] VITALS: BP 106/69
[2018-05-17] MEDS: BuPROPion HCL XL 150 MG ER TABLET PO SCH (09:57)
[2018-05-17] MEDS: QUEtiapine FUMARATE 100 MG TABLET PO SCH (09:57)
[2018-05-17] MEDS: OxyCODONE HCL 20 MG ER TABLET PO PRN (09:57)
[2018-05-17] MEDS: HEPARIN SODIUM,PORCINE 5,000 UNITS/ML VIAL SQ SCH ×4 (10:05→16:30)
[2018-05-17 16:50] VITALS: BP 120/67
[2018-05-17] MEDS: QUEtiapine FUMARATE 200 MG TABLET PO SCH (21:11)
[2018-05-18] MEDS: HEPARIN SODIUM,PORCINE 5,000 UNITS/ML VIAL SQ SCH ×3 (08:00→17:05)
[2018-05-18 08:15] VITALS: BP 106/67
[2018-05-18] MEDS: AmLODIPine BESYLATE 5 MG TABLET PO SCH (08:42)
[2018-05-18] MEDS: HydrALAZINE HCL 25 MG TABLET PO SCH (08:42)
[2018-05-18] MEDS: LISINOPRIL 10 MG TABLET PO SCH (08:43)
[2018-05-18] MEDS: BuPROPion HCL XL 150 MG ER TABLET PO SCH (08:43)
[2018-05-18] MEDS: DOLUTEGRAVIR SODIUM 50 MG TABLET PO SCH (08:43)
[2018-05-18] MEDS: QUEtiapine FUMARATE 100 MG TABLET PO SCH (08:43)
[2018-05-18] MEDS: ABACAVIR SULFATE 300 MG TABLET PO SCH (08:43)
[2018-05-18] MEDS: OxyCODONE HCL 20 MG ER TABLET PO PRN ×2 (10:32→22:45)
[2018-05-18 11:00] LABS: BILIRUBIN,URINE NEGATIVE (NEGATIVE); GLUCOSE, URINE (UA) NEGATIVE (NEGATIVE); KETONES,URINE NEGATIVE (NEGATIVE); LEUKOCYTE ESTERASE ,URINE MODERATE (NEGATIVE); NITRATE,URINE NEGATIVE (NEGATIVE); OCCULT BLOOD,URINE NEGATIVE (NEGATIVE); PH,URINE 6.5 (5.0-8.0); PROTEIN,URINE NEGATIVE (NEGATIVE); UROBILINOGEN,URINE 0.2 mg/dL (<=1.0)
[2018-05-18 11:53] LABS: APPEARANCE,URINE HAZY (CLEAR)
[2018-05-18 11:57] LABS: BACTERIA,URINE Moderate /HPF (None Seen); SQUAMOUS EPITHELIAL CELL,UR Few /LPF (None Seen)
[2018-05-18 16:00] VITALS: BP 117/79
[2018-05-18] MEDS: CIPROFLOXACIN HCL 250 MG TABLET PO SCH (17:04)
[2018-05-18] MEDS: QUEtiapine FUMARATE 200 MG TABLET PO SCH (22:13)
[2018-05-18 22:47] VITALS: BP 149/78
[2018-05-19] MEDS: QUEtiapine FUMARATE 100 MG TABLET PO SCH (08:14)
[2018-05-19] MEDS: HEPARIN SODIUM,PORCINE 5,000 UNITS/ML VIAL SQ SCH ×2 (08:15→18:02)
[2018-05-19] MEDS: BuPROPion HCL XL 150 MG ER TABLET PO SCH (08:29)
[2018-05-19 08:30] VITALS: BP 126/82
[2018-05-19] MEDS: OxyCODONE HCL 20 MG ER TABLET PO PRN ×2 (08:30→18:17)
[2018-05-19 08:48] VITALS: BP 110/71
[2018-05-19] MEDS: DOLUTEGRAVIR SODIUM 50 MG TABLET PO SCH (09:00)
[2018-05-19] MEDS: HydrALAZINE HCL 25 MG TABLET PO SCH (09:00)
[2018-05-19] MEDS: AmLODIPine BESYLATE 5 MG TABLET PO SCH (09:00)
[2018-05-19] MEDS: LISINOPRIL 10 MG TABLET PO SCH (09:00)
[2018-05-19] MEDS: CARISOPRODOL 350 MG TABLET PO SCH (09:00)
[2018-05-19] MEDS: ABACAVIR SULFATE 300 MG TABLET PO SCH (09:00)
[2018-05-19] MEDS: CIPROFLOXACIN HCL 250 MG TABLET PO SCH ×2 (09:00→17:59)
[2018-05-19 09:30] VITALS: BP 115/76
[2018-05-19 18:17] VITALS: BP 116/81
[2018-05-19] MEDS: QUEtiapine FUMARATE 200 MG TABLET PO SCH (21:21)
[2018-05-20 00:10] VITALS: BP 149/99
[2018-05-20] MEDS: IBUPROFEN 400 MG TABLET PO PRN (00:14)
[2018-05-20] MEDS: ZOLPIDEM TARTRATE 10 MG TABLET PO PRN (02:38)
[2018-05-20 08:46] VITALS: BP 118/70
[2018-05-20] MEDS: BuPROPion HCL XL 150 MG ER TABLET PO SCH (08:50)
[2018-05-20] MEDS: QUEtiapine FUMARATE 100 MG TABLET PO SCH (08:51)
[2018-05-20] MEDS: HydrALAZINE HCL 25 MG TABLET PO SCH (09:00)
[2018-05-20] MEDS: DOLUTEGRAVIR SODIUM 50 MG TABLET PO SCH (09:00)
[2018-05-20] MEDS: CARISOPRODOL 350 MG TABLET PO SCH (09:00)
[2018-05-20] MEDS: ABACAVIR SULFATE 300 MG TABLET PO SCH (09:00)
[2018-05-20] MEDS: CIPROFLOXACIN HCL 250 MG TABLET PO SCH ×2 (09:00→16:05)
[2018-05-20] MEDS: LISINOPRIL 10 MG TABLET PO SCH (09:00)
[2018-05-20] MEDS: AmLODIPine BESYLATE 5 MG TABLET PO SCH (09:00)
[2018-05-20] MEDS: HEPARIN SODIUM,PORCINE 5,000 UNITS/ML VIAL SQ SCH ×2 (09:00→16:06)
[2018-05-20] MEDS: QUEtiapine FUMARATE 200 MG TABLET PO SCH (20:41)
[2018-05-20 20:57] VITALS: BP 112/71
[2018-05-21 08:53] VITALS: BP 126/91
[2018-05-21] MEDS: CIPROFLOXACIN HCL 250 MG TABLET PO SCH ×3 (09:00→17:04)
[2018-05-21] MEDS: LISINOPRIL 10 MG TABLET PO SCH ×2 (09:00→10:53)
[2018-05-21] MEDS: ABACAVIR SULFATE 300 MG TABLET PO SCH ×2 (09:00→10:53)
[2018-05-21] MEDS: DOLUTEGRAVIR SODIUM 50 MG TABLET PO SCH ×2 (09:00→10:53)
[2018-05-21] MEDS: CARISOPRODOL 350 MG TABLET PO SCH ×2 (09:00→10:54)
[2018-05-21] MEDS: AmLODIPine BESYLATE 5 MG TABLET PO SCH ×2 (09:00→10:54)
[2018-05-21] MEDS: HydrALAZINE HCL 25 MG TABLET PO SCH ×2 (09:00→10:53)
[2018-05-21] MEDS: QUEtiapine FUMARATE 100 MG TABLET PO SCH (10:53)
[2018-05-21] MEDS: BuPROPion HCL XL 150 MG ER TABLET PO SCH (10:54)
[2018-05-21] MEDS: HEPARIN SODIUM,PORCINE 5,000 UNITS/ML VIAL SQ SCH ×2 (10:54→17:05)
[2018-05-21] MEDS: OxyCODONE HCL 20 MG ER TABLET PO PRN ×2 (12:45→22:49)
[2018-05-21 21:17] VITALS: BP 147/94
[2018-05-21] MEDS: QUEtiapine FUMARATE 200 MG TABLET PO SCH (21:55)
[2018-05-21 22:48] VITALS: BP 138/70
[2018-05-22 08:05] VITALS: BP 108/76
[2018-05-22] MEDS: HEPARIN SODIUM,PORCINE 5,000 UNITS/ML VIAL SQ SCH ×2 (09:00→17:25)
[2018-05-22] MEDS: CARISOPRODOL 350 MG TABLET PO SCH (09:00)
[2018-05-22] MEDS: ABACAVIR SULFATE 300 MG TABLET PO SCH (09:00)
[2018-05-22] MEDS: HydrALAZINE HCL 25 MG TABLET PO SCH (09:00)
[2018-05-22] MEDS: DOLUTEGRAVIR SODIUM 50 MG TABLET PO SCH (09:00)
[2018-05-22] MEDS: AmLODIPine BESYLATE 5 MG TABLET PO SCH (09:00)
[2018-05-22] MEDS: LISINOPRIL 10 MG TABLET PO SCH (09:00)
[2018-05-22] MEDS: BuPROPion HCL XL 150 MG ER TABLET PO SCH (10:40)
[2018-05-22] MEDS: QUEtiapine FUMARATE 100 MG TABLET PO SCH (10:40)
[2018-05-22] MEDS: CIPROFLOXACIN HCL 250 MG TABLET PO SCH ×2 (10:40→17:00)
[2018-05-22 17:29] VITALS: BP 120/76
[2018-05-22] MEDS: OxyCODONE HCL 20 MG ER TABLET PO PRN (17:29)
[2018-05-22] MEDS: QUEtiapine FUMARATE 200 MG TABLET PO SCH (21:41)
[2018-05-23 08:14] VITALS: BP 110/71
[2018-05-23] MEDS: CARISOPRODOL 350 MG TABLET PO SCH (09:00)
[2018-05-23] MEDS: HydrALAZINE HCL 25 MG TABLET PO SCH (09:00)
[2018-05-23] MEDS: DOLUTEGRAVIR SODIUM 50 MG TABLET PO SCH (09:00)
[2018-05-23] MEDS: HEPARIN SODIUM,PORCINE 5,000 UNITS/ML VIAL SQ SCH ×2 (09:00→17:53)
[2018-05-23] MEDS: LISINOPRIL 10 MG TABLET PO SCH (09:00)
[2018-05-23] MEDS: ABACAVIR SULFATE 300 MG TABLET PO SCH (09:00)
[2018-05-23] MEDS: AmLODIPine BESYLATE 5 MG TABLET PO SCH (09:00)
[2018-05-23] MEDS: NITROFURANTOIN/NITROFURAN MAC 100 MG CAPSULE [MACROBID] PO SCH ×2 (10:21→17:53)
[2018-05-23] MEDS: BuPROPion HCL XL 150 MG ER TABLET PO SCH (10:21)
[2018-05-23] MEDS: QUEtiapine FUMARATE 100 MG TABLET PO SCH (10:21)
[2018-05-23 14:56] VITALS: BP 133/91
[2018-05-23] MEDS: OxyCODONE HCL 20 MG ER TABLET PO PRN (14:56)
[2018-05-23 18:24] VITALS: BP_SYST 110; BP_SYST 130; BP_DIAS 71; BP_DIAS 84
[2018-05-23] MEDS: QUEtiapine FUMARATE 200 MG TABLET PO SCH (22:00)
[2018-05-24 01:11] VITALS: BP 140/93
[2018-05-24] MEDS: LORazepam 2 MG TABLET PO PRN (01:15)
[2018-05-24] MEDS: OxyCODONE HCL 20 MG ER TABLET PO PRN ×3 (01:15→18:57)
[2018-05-24 08:00] VITALS: BP 121/75
[2018-05-24] MEDS: CARISOPRODOL 350 MG TABLET PO SCH (09:00)
[2018-05-24] MEDS: ABACAVIR SULFATE 300 MG TABLET PO SCH (09:00)
[2018-05-24] MEDS: AmLODIPine BESYLATE 5 MG TABLET PO SCH (09:00)
[2018-05-24] MEDS: NITROFURANTOIN/NITROFURAN MAC 100 MG CAPSULE [MACROBID] PO SCH ×2 (09:00→17:58)
[2018-05-24] MEDS: HydrALAZINE HCL 25 MG TABLET PO SCH (09:00)
[2018-05-24] MEDS: DOLUTEGRAVIR SODIUM 50 MG TABLET PO SCH (09:00)
[2018-05-24] MEDS: LISINOPRIL 10 MG TABLET PO SCH (09:00)
[2018-05-24] MEDS: QUEtiapine FUMARATE 100 MG TABLET PO SCH (10:15)
[2018-05-24] MEDS: BuPROPion HCL XL 150 MG ER TABLET PO SCH (10:16)
[2018-05-24] MEDS: HEPARIN SODIUM,PORCINE 5,000 UNITS/ML VIAL SQ SCH ×2 (11:06→17:59)
[2018-05-24 18:50] VITALS: BP 132/92
[2018-05-24 19:50] VITALS: BP 138/92
[2018-05-24] MEDS: QUEtiapine FUMARATE 200 MG TABLET PO SCH (20:40)
[2018-05-25 00:25] VITALS: BP 126/78
[2018-05-25] MEDS: ZOLPIDEM TARTRATE 10 MG TABLET PO PRN (00:26)
[2018-05-25] MEDS: IBUPROFEN 400 MG TABLET PO PRN (00:26)
[2018-05-25 08:00] VITALS: BP 142/100
[2018-05-25] MEDS: ABACAVIR SULFATE 300 MG TABLET PO SCH (09:00)
[2018-05-25] MEDS: HydrALAZINE HCL 25 MG TABLET PO SCH (09:00)
[2018-05-25] MEDS: CARISOPRODOL 350 MG TABLET PO SCH (09:00)
[2018-05-25] MEDS: NITROFURANTOIN/NITROFURAN MAC 100 MG CAPSULE [MACROBID] PO SCH ×2 (09:00→16:41)
[2018-05-25] MEDS: DOLUTEGRAVIR SODIUM 50 MG TABLET PO SCH (09:00)
[2018-05-25] MEDS: BuPROPion HCL XL 150 MG ER TABLET PO SCH (09:14)
[2018-05-25] MEDS: QUEtiapine FUMARATE 100 MG TABLET PO SCH (09:14)
[2018-05-25] MEDS: AmLODIPine BESYLATE 5 MG TABLET PO SCH (09:17)
[2018-05-25] MEDS: LISINOPRIL 10 MG TABLET PO SCH (09:17)
[2018-05-25] MEDS: HEPARIN SODIUM,PORCINE 5,000 UNITS/ML VIAL SQ SCH ×2 (10:46→16:41)
[2018-05-25 16:39] VITALS: BP 132/91
[2018-05-25] MEDS: OxyCODONE HCL 20 MG ER TABLET PO PRN (16:40)
[2018-05-25] MEDS: QUEtiapine FUMARATE 200 MG TABLET PO SCH (21:53)
[2018-05-26 08:15] VITALS: BP 128/76
[2018-05-26] MEDS: AmLODIPine BESYLATE 5 MG TABLET PO SCH (09:00)
[2018-05-26] MEDS: LISINOPRIL 10 MG TABLET PO SCH (09:00)
[2018-05-26] MEDS: ABACAVIR SULFATE 300 MG TABLET PO SCH (09:00)
[2018-05-26] MEDS: CARISOPRODOL 350 MG TABLET PO SCH (09:00)
[2018-05-26] MEDS: DOLUTEGRAVIR SODIUM 50 MG TABLET PO SCH (09:00)
[2018-05-26] MEDS: HydrALAZINE HCL 25 MG TABLET PO SCH (09:00)
[2018-05-26] MEDS: NITROFURANTOIN/NITROFURAN MAC 100 MG CAPSULE [MACROBID] PO SCH ×2 (10:07→18:03)
[2018-05-26] MEDS: QUEtiapine FUMARATE 100 MG TABLET PO SCH (10:08)
[2018-05-26] MEDS: BuPROPion HCL XL 150 MG ER TABLET PO SCH (10:08)
[2018-05-26 10:15] VITALS: BP 128/76
[2018-05-26] MEDS: OxyCODONE HCL 20 MG ER TABLET PO PRN (10:16)
[2018-05-26] MEDS: HEPARIN SODIUM,PORCINE 5,000 UNITS/ML VIAL SQ SCH ×2 (10:20→18:02)
[2018-05-26] MEDS: QUEtiapine FUMARATE 200 MG TABLET PO SCH (21:52)
[2018-05-26 22:19] VITALS: BP 127/81
[2018-05-27 00:35] VITALS: BP 129/93
[2018-05-27] MEDS: OxyCODONE HCL 20 MG ER TABLET PO PRN ×3 (00:37→20:30)
[2018-05-27] MEDS: ZOLPIDEM TARTRATE 10 MG TABLET PO PRN (00:37)
[2018-05-27] MEDS: AmLODIPine BESYLATE 5 MG TABLET PO SCH (09:00)
[2018-05-27] MEDS: DOLUTEGRAVIR SODIUM 50 MG TABLET PO SCH (09:00)
[2018-05-27] MEDS: ABACAVIR SULFATE 300 MG TABLET PO SCH (09:00)
[2018-05-27] MEDS: CARISOPRODOL 350 MG TABLET PO SCH (09:00)
[2018-05-27] MEDS: HydrALAZINE HCL 25 MG TABLET PO SCH (09:00)
[2018-05-27] MEDS: LISINOPRIL 10 MG TABLET PO SCH (09:00)
[2018-05-27 11:08] VITALS: BP 110/75
[2018-05-27 12:10] VITALS: BP 110/75
[2018-05-27] MEDS: BuPROPion HCL XL 150 MG ER TABLET PO SCH (12:12)
[2018-05-27] MEDS: QUEtiapine FUMARATE 100 MG TABLET PO SCH (12:12)
[2018-05-27] MEDS: NITROFURANTOIN/NITROFURAN MAC 100 MG CAPSULE [MACROBID] PO SCH ×2 (12:12→17:46)
[2018-05-27] MEDS: HEPARIN SODIUM,PORCINE 5,000 UNITS/ML VIAL SQ SCH ×2 (12:24→17:46)
[2018-05-27 16:45] VITALS: BP 122/89
[2018-05-27 20:30] VITALS: BP 147/95
[2018-05-27] MEDS: QUEtiapine FUMARATE 200 MG TABLET PO SCH (22:15)
[2018-05-28 08:39] VITALS: BP 121/79
[2018-05-28] MEDS: OxyCODONE HCL 20 MG ER TABLET PO PRN ×2 (08:40→21:14)
[2018-05-28] MEDS: AmLODIPine BESYLATE 5 MG TABLET PO SCH (09:00)
[2018-05-28] MEDS: LISINOPRIL 10 MG TABLET PO SCH (09:00)
[2018-05-28] MEDS: ABACAVIR SULFATE 300 MG TABLET PO SCH (09:00)
[2018-05-28] MEDS: DOLUTEGRAVIR SODIUM 50 MG TABLET PO SCH (09:00)
[2018-05-28] MEDS: CARISOPRODOL 350 MG TABLET PO SCH (09:00)
[2018-05-28] MEDS: HydrALAZINE HCL 25 MG TABLET PO SCH (09:00)
[2018-05-28] MEDS: BuPROPion HCL XL 150 MG ER TABLET PO SCH (09:07)
[2018-05-28] MEDS: QUEtiapine FUMARATE 100 MG TABLET PO SCH (09:07)
[2018-05-28] MEDS: NITROFURANTOIN/NITROFURAN MAC 100 MG CAPSULE [MACROBID] PO SCH ×2 (09:07→16:43)
[2018-05-28] MEDS: HEPARIN SODIUM,PORCINE 5,000 UNITS/ML VIAL SQ SCH ×2 (09:46→16:45)
[2018-05-28 18:29] VITALS: BP 158/107
[2018-05-28] MEDS: QUEtiapine FUMARATE 200 MG TABLET PO SCH (20:34)
[2018-05-28 21:14] VITALS: BP 135/104
[2018-05-29 08:48] VITALS: BP 134/95
[2018-05-29] MEDS: HydrALAZINE HCL 25 MG TABLET PO SCH (09:20)
[2018-05-29] MEDS: LISINOPRIL 10 MG TABLET PO SCH (09:20)
[2018-05-29] MEDS: BuPROPion HCL XL 150 MG ER TABLET PO SCH ×2 (09:20→09:33)
[2018-05-29] MEDS: NITROFURANTOIN/NITROFURAN MAC 100 MG CAPSULE [MACROBID] PO SCH ×2 (09:20→09:33)
[2018-05-29] MEDS: ABACAVIR SULFATE 300 MG TABLET PO SCH (09:21)
[2018-05-29] MEDS: AmLODIPine BESYLATE 5 MG TABLET PO SCH (09:21)
[2018-05-29] MEDS: QUEtiapine FUMARATE 100 MG TABLET PO SCH ×2 (09:21→09:32)
[2018-05-29] MEDS: DOLUTEGRAVIR SODIUM 50 MG TABLET PO SCH (09:21)
[2018-05-29] MEDS: CARISOPRODOL 350 MG TABLET PO SCH ×2 (09:21→09:32)
[2018-05-29] MEDS: OxyCODONE HCL 20 MG ER TABLET PO PRN (09:37)
[2018-05-29] MEDS: HEPARIN SODIUM,PORCINE 5,000 UNITS/ML VIAL SQ SCH ×2 (09:42→16:55)
[2018-05-29] MEDS ORDERED: PredniSONE 20 MG TABLET PO ONE (15:15)
[2018-05-29] MEDS ORDERED: DiphenhydrAMINE HCL 25 MG CAPSULE PO ONE (15:15)
[2018-05-29] MEDS ORDERED: FAMOTIDINE 20 MG TABLET PO ONE (15:15)
[2018-05-29 16:49] VITALS: BP 133/91
[2018-05-29] MEDS: QUEtiapine FUMARATE 200 MG TABLET PO SCH (20:48)
[2018-05-30] MEDS: DOLUTEGRAVIR SODIUM 50 MG TABLET PO SCH (09:00)
[2018-05-30] MEDS: ABACAVIR SULFATE 300 MG TABLET PO SCH (09:00)
[2018-05-30] MEDS: HydrALAZINE HCL 25 MG TABLET PO SCH (09:00)
[2018-05-30] MEDS: AmLODIPine BESYLATE 5 MG TABLET PO SCH (09:00)
[2018-05-30] MEDS: LISINOPRIL 10 MG TABLET PO SCH (09:00)
[2018-05-30] MEDS: HEPARIN SODIUM,PORCINE 5,000 UNITS/ML VIAL SQ SCH ×2 (09:15→16:44)
[2018-05-30 09:38] VITALS: BP 133/89
[2018-05-30] MEDS: OxyCODONE HCL 20 MG ER TABLET PO PRN (12:57)
[2018-05-30 16:22] VITALS: BP 145/98
[2018-05-30] MEDS: QUEtiapine FUMARATE 200 MG TABLET PO SCH (21:07)
[2018-05-31 00:15] VITALS: BP 131/84
[2018-05-31] MEDS: OxyCODONE HCL 20 MG ER TABLET PO PRN ×3 (00:25→23:03)
[2018-05-31 08:54] VITALS: BP 125/81
[2018-05-31] MEDS: LISINOPRIL 10 MG TABLET PO SCH (09:00)
[2018-05-31] MEDS: ABACAVIR SULFATE 300 MG TABLET PO SCH (09:00)
[2018-05-31] MEDS: AmLODIPine BESYLATE 5 MG TABLET PO SCH (09:00)
[2018-05-31] MEDS: DOLUTEGRAVIR SODIUM 50 MG TABLET PO SCH (09:00)
[2018-05-31] MEDS: HydrALAZINE HCL 25 MG TABLET PO SCH (09:00)
[2018-05-31] MEDS: HEPARIN SODIUM,PORCINE 5,000 UNITS/ML VIAL SQ SCH ×2 (09:00→17:34)
[2018-05-31] MEDS: CARISOPRODOL 350 MG TABLET PO SCH (09:00)
[2018-05-31] MEDS: BuPROPion HCL XL 150 MG ER TABLET PO SCH (09:08)
[2018-05-31] MEDS: QUEtiapine FUMARATE 100 MG TABLET PO SCH (09:08)
[2018-05-31 12:33] VITALS: BP 135/86
[2018-05-31 17:48] VITALS: BP 126/88
[2018-05-31] MEDS: QUEtiapine FUMARATE 200 MG TABLET PO SCH (21:06)
[2018-06-01 00:01] VITALS: BP 128/79
[2018-06-01] MEDS: LISINOPRIL 10 MG TABLET PO SCH (09:00)
[2018-06-01] MEDS: ABACAVIR SULFATE 300 MG TABLET PO SCH (09:00)
[2018-06-01] MEDS: HydrALAZINE HCL 25 MG TABLET PO SCH (09:00)
[2018-06-01] MEDS: AmLODIPine BESYLATE 5 MG TABLET PO SCH (09:00)
[2018-06-01] MEDS: CARISOPRODOL 350 MG TABLET PO SCH (09:00)
[2018-06-01] MEDS: DOLUTEGRAVIR SODIUM 50 MG TABLET PO SCH (09:00)
[2018-06-01] MEDS: HEPARIN SODIUM,PORCINE 5,000 UNITS/ML VIAL SQ SCH ×3 (09:00→20:20)
[2018-06-01] MEDS: OxyCODONE HCL 20 MG ER TABLET PO PRN ×2 (11:05→20:27)
[2018-06-01] MEDS: QUEtiapine FUMARATE 100 MG TABLET PO SCH (11:20)
[2018-06-01] MEDS: BuPROPion HCL XL 150 MG ER TABLET PO SCH (11:20)
[2018-06-01 20:27] VITALS: BP 151/78
[2018-06-01] MEDS: QUEtiapine FUMARATE 200 MG TABLET PO SCH (21:58)
[2018-06-02 08:07] VITALS: BP 158/79
[2018-06-02] MEDS: OxyCODONE HCL 20 MG ER TABLET PO PRN ×2 (08:07→19:15)
[2018-06-02] MEDS: BuPROPion HCL XL 150 MG ER TABLET PO SCH (08:08)
[2018-06-02] MEDS: QUEtiapine FUMARATE 100 MG TABLET PO SCH (08:08)
[2018-06-02 08:28] VITALS: BP 109/74
[2018-06-02] MEDS: CARISOPRODOL 350 MG TABLET PO SCH (09:00)
[2018-06-02] MEDS: AmLODIPine BESYLATE 5 MG TABLET PO SCH (09:00)
[2018-06-02] MEDS: HEPARIN SODIUM,PORCINE 5,000 UNITS/ML VIAL SQ SCH ×2 (09:00→16:55)
[2018-06-02] MEDS: LISINOPRIL 10 MG TABLET PO SCH (09:00)
[2018-06-02] MEDS: DOLUTEGRAVIR SODIUM 50 MG TABLET PO SCH (09:00)
[2018-06-02] MEDS: HydrALAZINE HCL 25 MG TABLET PO SCH (09:00)
[2018-06-02] MEDS: ABACAVIR SULFATE 300 MG TABLET PO SCH (09:00)
[2018-06-02 17:06] VITALS: BP 127/90
[2018-06-02 19:15] VITALS: BP 135/99
[2018-06-02] MEDS: QUEtiapine FUMARATE 200 MG TABLET PO SCH (21:25)
[2018-06-03 00:50] VITALS: BP 119/69
[2018-06-03] MEDS: ZOLPIDEM TARTRATE 10 MG TABLET PO PRN (00:52)
[2018-06-03 08:00] VITALS: BP 133/81
[2018-06-03] MEDS: ABACAVIR SULFATE 300 MG TABLET PO SCH (09:00)
[2018-06-03] MEDS: LISINOPRIL 10 MG TABLET PO SCH (09:00)
[2018-06-03] MEDS: HydrALAZINE HCL 25 MG TABLET PO SCH (09:00)
[2018-06-03] MEDS: DOLUTEGRAVIR SODIUM 50 MG TABLET PO SCH (09:00)
[2018-06-03] MEDS: CARISOPRODOL 350 MG TABLET PO SCH (09:00)
[2018-06-03] MEDS: AmLODIPine BESYLATE 5 MG TABLET PO SCH (09:00)
[2018-06-03] MEDS: HEPARIN SODIUM,PORCINE 5,000 UNITS/ML VIAL SQ SCH ×2 (09:00→16:18)
[2018-06-03] MEDS: QUEtiapine FUMARATE 100 MG TABLET PO SCH (09:22)
[2018-06-03] MEDS: BuPROPion HCL XL 150 MG ER TABLET PO SCH (09:22)
[2018-06-03] MEDS ORDERED: TUBERCULIN, PURIFIED PROTEIN DERIVATIVE 5 TU/0.1 ML SYG ID ONE (15:00)
[2018-06-03 16:21] VITALS: BP 137/90
[2018-06-03] MEDS: OxyCODONE HCL 20 MG ER TABLET PO PRN (16:21)
[2018-06-03] MEDS: QUEtiapine FUMARATE 200 MG TABLET PO SCH (20:40)
[2018-06-04] VITALS (7 sets, daily range): BP systolic 113–149; BP diastolic 66–102
[2018-06-04] MEDS: OxyCODONE HCL 20 MG ER TABLET PO PRN ×3 (01:20→20:52)
[2018-06-04] MEDS: HydrALAZINE HCL 25 MG TABLET PO SCH (09:00)
[2018-06-04] MEDS: AmLODIPine BESYLATE 5 MG TABLET PO SCH (09:00)
[2018-06-04] MEDS: HEPARIN SODIUM,PORCINE 5,000 UNITS/ML VIAL SQ SCH ×2 (09:00→17:00)
[2018-06-04] MEDS: CARISOPRODOL 350 MG TABLET PO SCH (09:00)
[2018-06-04] MEDS: LISINOPRIL 10 MG TABLET PO SCH (09:00)
[2018-06-04] MEDS: QUEtiapine FUMARATE 100 MG TABLET PO SCH (09:19)
[2018-06-04] MEDS: BuPROPion HCL XL 150 MG ER TABLET PO SCH (09:19)
[2018-06-04] MEDS: QUEtiapine FUMARATE 200 MG TABLET PO SCH (20:52)
[2018-06-05] MEDS: HydrALAZINE HCL 25 MG TABLET PO SCH (09:00)
[2018-06-05] MEDS: HEPARIN SODIUM,PORCINE 5,000 UNITS/ML VIAL SQ SCH ×2 (09:00→17:51)
[2018-06-05] MEDS: AmLODIPine BESYLATE 5 MG TABLET PO SCH (09:00)
[2018-06-05] MEDS: LISINOPRIL 10 MG TABLET PO SCH (09:00)
[2018-06-05] MEDS: CARISOPRODOL 350 MG TABLET PO SCH (09:00)
[2018-06-05] MEDS: BuPROPion HCL XL 150 MG ER TABLET PO SCH (10:16)
[2018-06-05] MEDS: QUEtiapine FUMARATE 100 MG TABLET PO SCH (10:16)
[2018-06-05] MEDS: OxyCODONE HCL 20 MG ER TABLET PO PRN (15:18)
[2018-06-05 16:56] VITALS: BP 136/99
[2018-06-05] MEDS: QUEtiapine FUMARATE 200 MG TABLET PO SCH (21:09)
[2018-06-06 00:11] VITALS: BP 153/100
[2018-06-06] MEDS: OxyCODONE HCL 20 MG ER TABLET PO PRN ×2 (00:13→14:02)
[2018-06-06 08:06] VITALS: BP 131/77
[2018-06-06] MEDS: HydrALAZINE HCL 25 MG TABLET PO SCH (09:00)
[2018-06-06] MEDS: LISINOPRIL 10 MG TABLET PO SCH (09:00)
[2018-06-06] MEDS: AmLODIPine BESYLATE 5 MG TABLET PO SCH (09:00)
[2018-06-06] MEDS: CARISOPRODOL 350 MG TABLET PO SCH (09:00)
[2018-06-06] MEDS: BuPROPion HCL XL 150 MG ER TABLET PO SCH (09:23)
[2018-06-06] MEDS: QUEtiapine FUMARATE 100 MG TABLET PO SCH (09:23)
[2018-06-06] MEDS: HEPARIN SODIUM,PORCINE 5,000 UNITS/ML VIAL SQ SCH ×2 (12:02→16:59)
[2018-06-06 14:05] VITALS: BP 152/104
[2018-06-06 17:47] VITALS: BP 155/100
[2018-06-06] MEDS: IBUPROFEN 400 MG TABLET PO PRN (17:53)
[2018-06-06 18:53] VITALS: BP 143/84
[2018-06-06] MEDS: QUEtiapine FUMARATE 200 MG TABLET PO SCH (20:26)
[2018-06-07 00:05] VITALS: BP 144/103
[2018-06-07] MEDS: OxyCODONE HCL 20 MG ER TABLET PO PRN ×3 (00:07→23:06)
[2018-06-07] MEDS: AmLODIPine BESYLATE 5 MG TABLET PO SCH (09:00)
[2018-06-07] MEDS: HEPARIN SODIUM,PORCINE 5,000 UNITS/ML VIAL SQ SCH ×3 (09:00→16:57)
[2018-06-07] MEDS: LISINOPRIL 10 MG TABLET PO SCH (09:00)
[2018-06-07] MEDS: HydrALAZINE HCL 25 MG TABLET PO SCH (09:00)
[2018-06-07] MEDS: CARISOPRODOL 350 MG TABLET PO SCH (09:00)
[2018-06-07] MEDS: QUEtiapine FUMARATE 100 MG TABLET PO SCH (09:41)
[2018-06-07] MEDS: BuPROPion HCL XL 150 MG ER TABLET PO SCH (09:41)
[2018-06-07 10:19] VITALS: BP 116/80
[2018-06-07 18:03] VITALS: BP 138/76
[2018-06-07] MEDS: QUEtiapine FUMARATE 200 MG TABLET PO SCH (20:09)
[2018-06-07 23:07] VITALS: BP 145/101
[2018-06-08 01:44] VITALS: BP 141/81
[2018-06-08] MEDS: HydrALAZINE HCL 25 MG TABLET PO SCH (09:00)
[2018-06-08] MEDS: LISINOPRIL 10 MG TABLET PO SCH (09:00)
[2018-06-08] MEDS: CARISOPRODOL 350 MG TABLET PO SCH (09:00)
[2018-06-08] MEDS: HEPARIN SODIUM,PORCINE 5,000 UNITS/ML VIAL SQ SCH ×2 (09:00→17:48)
[2018-06-08] MEDS: AmLODIPine BESYLATE 5 MG TABLET PO SCH (09:00)
[2018-06-08] MEDS: QUEtiapine FUMARATE 100 MG TABLET PO SCH (10:02)
[2018-06-08] MEDS: BuPROPion HCL XL 150 MG ER TABLET PO SCH (10:03)
[2018-06-08] MEDS: OxyCODONE HCL 20 MG ER TABLET PO PRN (10:04)
[2018-06-08 11:45] VITALS: BP 137/73
[2018-06-08 16:30] VITALS: BP 133/88
[2018-06-08] MEDS: QUEtiapine FUMARATE 200 MG TABLET PO SCH (22:00)
[2018-06-09 00:03] VITALS: BP 139/84
[2018-06-09] MEDS: OxyCODONE HCL 20 MG ER TABLET PO PRN ×3 (00:05→20:55)
[2018-06-09] MEDS: CARISOPRODOL 350 MG TABLET PO SCH ×2 (09:00→10:11)
[2018-06-09 09:25] VITALS: BP 133/81
[2018-06-09] MEDS: QUEtiapine FUMARATE 100 MG TABLET PO SCH (10:11)
[2018-06-09] MEDS: BuPROPion HCL XL 150 MG ER TABLET PO SCH (10:12)
[2018-06-09] MEDS: AmLODIPine BESYLATE 5 MG TABLET PO SCH (10:12)
[2018-06-09] MEDS: LISINOPRIL 10 MG TABLET PO SCH (10:12)
[2018-06-09] MEDS: HydrALAZINE HCL 25 MG TABLET PO SCH (10:12)
[2018-06-09] MEDS: HEPARIN SODIUM,PORCINE 5,000 UNITS/ML VIAL SQ SCH ×3 (10:15→16:39)
[2018-06-09 10:28] VITALS: BP 137/97
[2018-06-09 11:21] VITALS: BP 134/82
[2018-06-09 17:16] VITALS: BP 108/73
[2018-06-09] MEDS: QUEtiapine FUMARATE 200 MG TABLET PO SCH (20:53)
[2018-06-09 20:55] VITALS: BP 129/84
[2018-06-10 00:15] VITALS: BP 152/98
[2018-06-10] MEDS: LORazepam 2 MG TABLET PO PRN (00:27)
[2018-06-10] MEDS: CARISOPRODOL 350 MG TABLET PO SCH (09:00)
[2018-06-10] MEDS: HydrALAZINE HCL 25 MG TABLET PO SCH (09:00)
[2018-06-10] MEDS: LISINOPRIL 10 MG TABLET PO SCH (09:00)
[2018-06-10] MEDS: AmLODIPine BESYLATE 5 MG TABLET PO SCH (09:00)
[2018-06-10] MEDS: HEPARIN SODIUM,PORCINE 5,000 UNITS/ML VIAL SQ SCH ×2 (09:00→17:00)
[2018-06-10 09:55] VITALS: BP 108/75
[2018-06-10] MEDS: BuPROPion HCL XL 150 MG ER TABLET PO SCH (10:12)
[2018-06-10] MEDS: QUEtiapine FUMARATE 100 MG TABLET PO SCH (10:13)
[2018-06-10 18:56] VITALS: BP 129/76
[2018-06-10 19:12] VITALS: BP 137/100
[2018-06-10] MEDS: OxyCODONE HCL 20 MG ER TABLET PO PRN (19:12)
[2018-06-10 20:12] VITALS: BP 140/90
[2018-06-10] MEDS: QUEtiapine FUMARATE 200 MG TABLET PO SCH (20:25)
[2018-06-11 00:15] VITALS: BP 125/95
[2018-06-11] MEDS: IBUPROFEN 400 MG TABLET PO PRN (00:21)
[2018-06-11 09:14] VITALS: BP 133/84
[2018-06-11 09:15] VITALS: BP 133/78
[2018-06-11] MEDS: BuPROPion HCL XL 150 MG ER TABLET PO SCH (09:16)
[2018-06-11] MEDS: AmLODIPine BESYLATE 5 MG TABLET PO SCH (09:16)
[2018-06-11] MEDS: LISINOPRIL 10 MG TABLET PO SCH (09:16)
[2018-06-11] MEDS: CARISOPRODOL 350 MG TABLET PO SCH (09:16)
[2018-06-11] MEDS: QUEtiapine FUMARATE 100 MG TABLET PO SCH (09:16)
[2018-06-11] MEDS: OxyCODONE HCL 20 MG ER TABLET PO PRN ×2 (09:17→17:52)
[2018-06-11] MEDS: HydrALAZINE HCL 25 MG TABLET PO SCH (09:17)
[2018-06-11 10:17] VITALS: BP 130/69
[2018-06-11] MEDS: HEPARIN SODIUM,PORCINE 5,000 UNITS/ML VIAL SQ SCH (17:36)
[2018-06-11 17:50] VITALS: BP 127/69
[2018-06-11] MEDS: QUEtiapine FUMARATE 200 MG TABLET PO SCH (21:36)
[2018-06-12 00:15] VITALS: BP 122/85
[2018-06-12] MEDS: HEPARIN SODIUM,PORCINE 5,000 UNITS/ML VIAL SQ SCH ×2 (09:00→17:06)
[2018-06-12 09:29] VITALS: BP 126/71
[2018-06-12] MEDS: HydrALAZINE HCL 25 MG TABLET PO SCH (09:36)
[2018-06-12] MEDS: BuPROPion HCL XL 150 MG ER TABLET PO SCH (09:36)
[2018-06-12] MEDS: CARISOPRODOL 350 MG TABLET PO SCH (09:36)
[2018-06-12] MEDS: QUEtiapine FUMARATE 100 MG TABLET PO SCH (09:36)
[2018-06-12] MEDS: AmLODIPine BESYLATE 5 MG TABLET PO SCH (09:36)
[2018-06-12] MEDS: LISINOPRIL 10 MG TABLET PO SCH (09:36)
[2018-06-12 17:01] VITALS: BP 124/74
[2018-06-12] MEDS: IBUPROFEN 400 MG TABLET PO PRN (17:01)
[2018-06-12] MEDS: QUEtiapine FUMARATE 200 MG TABLET PO SCH (20:57)
[2018-06-12 21:30] VITALS: BP 119/74
[2018-06-13] MEDS: ZOLPIDEM TARTRATE 10 MG TABLET PO PRN (01:14)
[2018-06-13 01:48] VITALS: BP 136/109
[2018-06-13] MEDS: OxyCODONE HCL 20 MG ER TABLET PO PRN ×2 (01:48→16:30)
[2018-06-13] MEDS: BuPROPion HCL XL 150 MG ER TABLET PO SCH (08:56)
[2018-06-13] MEDS: QUEtiapine FUMARATE 100 MG TABLET PO SCH (08:56)
[2018-06-13] MEDS: LISINOPRIL 10 MG TABLET PO SCH (09:00)
[2018-06-13] MEDS: AmLODIPine BESYLATE 5 MG TABLET PO SCH (09:00)
[2018-06-13] MEDS: CARISOPRODOL 350 MG TABLET PO SCH (09:00)
[2018-06-13] MEDS: HEPARIN SODIUM,PORCINE 5,000 UNITS/ML VIAL SQ SCH ×2 (09:00→16:29)
[2018-06-13] MEDS: HydrALAZINE HCL 25 MG TABLET PO SCH (09:00)
[2018-06-13 09:52] VITALS: BP 106/62
[2018-06-13 16:29] VITALS: BP 118/74
[2018-06-13 16:59] VITALS: BP 121/73
[2018-06-13] MEDS: QUEtiapine FUMARATE 200 MG TABLET PO SCH (21:27)
[2018-06-14 00:51] VITALS: BP 177/114
[2018-06-14] MEDS: OxyCODONE HCL 20 MG ER TABLET PO PRN ×2 (00:53→17:04)
[2018-06-14] MEDS: CloNIDine HCL 0.1 MG TABLET PO PRN (00:53)
[2018-06-14 02:00] VITALS: BP 108/67
[2018-06-14 08:01] VITALS: BP 122/82
[2018-06-14] MEDS: LISINOPRIL 10 MG TABLET PO SCH (08:49)
[2018-06-14] MEDS: BuPROPion HCL XL 150 MG ER TABLET PO SCH (08:49)
[2018-06-14] MEDS: AmLODIPine BESYLATE 5 MG TABLET PO SCH (08:49)
[2018-06-14] MEDS: HydrALAZINE HCL 25 MG TABLET PO SCH (08:49)
[2018-06-14] MEDS: QUEtiapine FUMARATE 100 MG TABLET PO SCH (08:49)
[2018-06-14] MEDS: CARISOPRODOL 350 MG TABLET PO SCH (08:49)
[2018-06-14] MEDS: HEPARIN SODIUM,PORCINE 5,000 UNITS/ML VIAL SQ SCH ×2 (08:50→17:02)
[2018-06-14 16:58] VITALS: BP 136/100
[2018-06-14 17:04] VITALS: BP 134/98
[2018-06-14] MEDS: QUEtiapine FUMARATE 200 MG TABLET PO SCH (21:01)
[2018-06-14 21:03] VITALS: BP 130/84
[2018-06-14] MEDS: IBUPROFEN 400 MG TABLET PO PRN (21:03)
[2018-06-15 08:12] VITALS: BP 117/55
[2018-06-15] MEDS: AmLODIPine BESYLATE 5 MG TABLET PO SCH (09:00)
[2018-06-15] MEDS: LISINOPRIL 10 MG TABLET PO SCH (09:00)
[2018-06-15] MEDS: CARISOPRODOL 350 MG TABLET PO SCH (09:00)
[2018-06-15] MEDS: HEPARIN SODIUM,PORCINE 5,000 UNITS/ML VIAL SQ SCH ×2 (09:00→17:03)
[2018-06-15] MEDS: HydrALAZINE HCL 25 MG TABLET PO SCH (09:00)
[2018-06-15] MEDS: QUEtiapine FUMARATE 100 MG TABLET PO SCH (10:32)
[2018-06-15] MEDS: BuPROPion HCL XL 150 MG ER TABLET PO SCH (10:32)
[2018-06-15] MEDS: OxyCODONE HCL 20 MG ER TABLET PO PRN (14:55)
[2018-06-15 16:00] VITALS: BP 147/101
[2018-06-15] MEDS: QUEtiapine FUMARATE 200 MG TABLET PO SCH (21:11)
[2018-06-16 00:19] VITALS: BP 166/114
[2018-06-16] MEDS: OxyCODONE HCL 20 MG ER TABLET PO PRN ×3 (00:19→18:19)
[2018-06-16 09:03] VITALS: BP 100/58
[2018-06-16] MEDS: QUEtiapine FUMARATE 100 MG TABLET PO SCH (10:11)
[2018-06-16] MEDS: BuPROPion HCL XL 150 MG ER TABLET PO SCH (10:11)
[2018-06-16] MEDS: AmLODIPine BESYLATE 5 MG TABLET PO SCH (10:13)
[2018-06-16] MEDS: HydrALAZINE HCL 25 MG TABLET PO SCH (10:13)
[2018-06-16] MEDS: CARISOPRODOL 350 MG TABLET PO SCH (10:14)
[2018-06-16 10:16] VITALS: BP 125/81
[2018-06-16] MEDS: LISINOPRIL 10 MG TABLET PO SCH (10:16)
[2018-06-16] MEDS: HEPARIN SODIUM,PORCINE 5,000 UNITS/ML VIAL SQ SCH ×2 (10:24→16:53)
[2018-06-16 18:19] VITALS: BP 121/62
[2018-06-16] MEDS: QUEtiapine FUMARATE 200 MG TABLET PO SCH (20:11)
[2018-06-17] MEDS: IBUPROFEN 400 MG TABLET PO PRN (00:19)
[2018-06-17 00:20] VITALS: BP 136/97
[2018-06-17 09:00] VITALS: BP 118/69
[2018-06-17] MEDS: CARISOPRODOL 350 MG TABLET PO SCH (09:00)
[2018-06-17] MEDS: AmLODIPine BESYLATE 5 MG TABLET PO SCH (09:00)
[2018-06-17] MEDS: HEPARIN SODIUM,PORCINE 5,000 UNITS/ML VIAL SQ SCH ×2 (09:00→16:46)
[2018-06-17] MEDS: HydrALAZINE HCL 25 MG TABLET PO SCH (09:00)
[2018-06-17] MEDS: LISINOPRIL 10 MG TABLET PO SCH (09:00)
[2018-06-17] MEDS: BuPROPion HCL XL 150 MG ER TABLET PO SCH (10:07)
[2018-06-17] MEDS: QUEtiapine FUMARATE 100 MG TABLET PO SCH (10:07)
[2018-06-17 16:46] VITALS: BP 131/74
[2018-06-17] MEDS: OxyCODONE HCL 20 MG ER TABLET PO PRN (16:46)
[2018-06-17 16:58] VITALS: BP 141/91
[2018-06-17] MEDS: QUEtiapine FUMARATE 200 MG TABLET PO SCH (21:42)
[2018-06-18 08:52] VITALS: BP 112/75
[2018-06-18] MEDS: QUEtiapine FUMARATE 100 MG TABLET PO SCH (08:54)
[2018-06-18] MEDS: BuPROPion HCL XL 150 MG ER TABLET PO SCH (08:54)
[2018-06-18] MEDS: CARISOPRODOL 350 MG TABLET PO SCH (09:00)
[2018-06-18] MEDS: HEPARIN SODIUM,PORCINE 5,000 UNITS/ML VIAL SQ SCH ×2 (09:00→17:39)
[2018-06-18] MEDS: HydrALAZINE HCL 25 MG TABLET PO SCH (09:00)
[2018-06-18] MEDS: LISINOPRIL 10 MG TABLET PO SCH (09:00)
[2018-06-18] MEDS: AmLODIPine BESYLATE 5 MG TABLET PO SCH (09:00)
[2018-06-18] MEDS: OxyCODONE HCL 20 MG ER TABLET PO PRN (11:07)
[2018-06-18 17:00] VITALS: BP 135/80
[2018-06-18] MEDS: QUEtiapine FUMARATE 200 MG TABLET PO SCH (20:25)
[2018-06-19] MEDS: OxyCODONE HCL 20 MG ER TABLET PO PRN ×2 (00:31→16:06)
[2018-06-19 00:32] VITALS: BP 155/98
[2018-06-19 08:00] VITALS: BP 111/85
[2018-06-19] MEDS: HydrALAZINE HCL 25 MG TABLET PO SCH (09:00)
[2018-06-19] MEDS: CARISOPRODOL 350 MG TABLET PO SCH (09:00)
[2018-06-19] MEDS: AmLODIPine BESYLATE 5 MG TABLET PO SCH (09:00)
[2018-06-19] MEDS: LISINOPRIL 10 MG TABLET PO SCH (09:00)
[2018-06-19] MEDS: BuPROPion HCL XL 150 MG ER TABLET PO SCH (12:27)
[2018-06-19] MEDS: QUEtiapine FUMARATE 100 MG TABLET PO SCH (12:27)
[2018-06-19] MEDS: HEPARIN SODIUM,PORCINE 5,000 UNITS/ML VIAL SQ SCH ×2 (12:33→16:51)
[2018-06-19 16:06] VITALS: BP 130/83
[2018-06-19] MEDS: QUEtiapine FUMARATE 200 MG TABLET PO SCH (21:07)
[2018-06-20 01:11] VITALS: BP 160/109
[2018-06-20] MEDS: OxyCODONE HCL 20 MG ER TABLET PO PRN ×3 (01:13→23:00)
[2018-06-20 08:05] VITALS: BP 112/71
[2018-06-20] MEDS: CARISOPRODOL 350 MG TABLET PO SCH (09:00)
[2018-06-20] MEDS: HydrALAZINE HCL 25 MG TABLET PO SCH (09:00)
[2018-06-20] MEDS: LISINOPRIL 10 MG TABLET PO SCH (09:00)
[2018-06-20] MEDS: AmLODIPine BESYLATE 5 MG TABLET PO SCH (09:00)
[2018-06-20] MEDS: HEPARIN SODIUM,PORCINE 5,000 UNITS/ML VIAL SQ SCH ×2 (09:00→17:48)
[2018-06-20] MEDS: QUEtiapine FUMARATE 100 MG TABLET PO SCH (09:31)
[2018-06-20] MEDS: BuPROPion HCL XL 150 MG ER TABLET PO SCH (09:31)
[2018-06-20 10:50] VITALS: BP 119/76
[2018-06-20 17:05] VITALS: BP 117/76
[2018-06-20] MEDS: QUEtiapine FUMARATE 200 MG TABLET PO SCH (22:55)
[2018-06-21] MEDS: IBUPROFEN 400 MG TABLET PO PRN (00:23)
[2018-06-21 00:24] VITALS: BP 160/89
[2018-06-21 08:58] VITALS: BP 101/72
[2018-06-21] MEDS: HydrALAZINE HCL 25 MG TABLET PO SCH (09:00)
[2018-06-21] MEDS: AmLODIPine BESYLATE 5 MG TABLET PO SCH (09:00)
[2018-06-21] MEDS: CARISOPRODOL 350 MG TABLET PO SCH (09:00)
[2018-06-21] MEDS: HEPARIN SODIUM,PORCINE 5,000 UNITS/ML VIAL SQ SCH ×2 (09:00→16:16)
[2018-06-21] MEDS: LISINOPRIL 10 MG TABLET PO SCH (09:00)
[2018-06-21] MEDS: QUEtiapine FUMARATE 100 MG TABLET PO SCH (10:52)
[2018-06-21] MEDS: BuPROPion HCL XL 150 MG ER TABLET PO SCH (10:53)
[2018-06-21 16:00] VITALS: BP 144/97
[2018-06-21] MEDS: OxyCODONE HCL 20 MG ER TABLET PO PRN (16:12)
[2018-06-21 17:12] VITALS: BP 130/8
[2018-06-21] MEDS: QUEtiapine FUMARATE 200 MG TABLET PO SCH (20:20)
[2018-06-22 02:05] VITALS: BP 168/94
[2018-06-22] MEDS: OxyCODONE HCL 20 MG ER TABLET PO PRN ×2 (02:07→16:23)
[2018-06-22 08:05] VITALS: BP 116/88
[2018-06-22] MEDS: LISINOPRIL 10 MG TABLET PO SCH (09:00)
[2018-06-22] MEDS: AmLODIPine BESYLATE 5 MG TABLET PO SCH (09:00)
[2018-06-22] MEDS: CARISOPRODOL 350 MG TABLET PO SCH (09:00)
[2018-06-22] MEDS: HEPARIN SODIUM,PORCINE 5,000 UNITS/ML VIAL SQ SCH ×2 (09:00→16:24)
[2018-06-22] MEDS: HydrALAZINE HCL 25 MG TABLET PO SCH (09:00)
[2018-06-22] MEDS: BuPROPion HCL XL 150 MG ER TABLET PO SCH (10:15)
[2018-06-22] MEDS: QUEtiapine FUMARATE 100 MG TABLET PO SCH (10:15)
[2018-06-22 16:23] VITALS: BP 139/78
[2018-06-22] MEDS: QUEtiapine FUMARATE 200 MG TABLET PO SCH (21:12)
[2018-06-23 00:39] VITALS: BP 138/96
[2018-06-23] MEDS: OxyCODONE HCL 20 MG ER TABLET PO PRN ×2 (00:39→16:37)
[2018-06-23 08:47] VITALS: BP 98/76
[2018-06-23] MEDS: CARISOPRODOL 350 MG TABLET PO SCH (09:00)
[2018-06-23] MEDS: HEPARIN SODIUM,PORCINE 5,000 UNITS/ML VIAL SQ SCH ×2 (09:00→16:45)
[2018-06-23] MEDS: HydrALAZINE HCL 25 MG TABLET PO SCH (09:00)
[2018-06-23] MEDS: AmLODIPine BESYLATE 5 MG TABLET PO SCH (09:00)
[2018-06-23] MEDS: LISINOPRIL 10 MG TABLET PO SCH (09:00)
[2018-06-23] MEDS: BuPROPion HCL XL 150 MG ER TABLET PO SCH (10:22)
[2018-06-23] MEDS: QUEtiapine FUMARATE 100 MG TABLET PO SCH (10:22)
[2018-06-23 16:36] VITALS: BP 129/77
[2018-06-23] MEDS: QUEtiapine FUMARATE 200 MG TABLET PO SCH (21:56)
[2018-06-24 00:53] VITALS: BP 150/102
[2018-06-24] MEDS: OxyCODONE HCL 20 MG ER TABLET PO PRN ×2 (00:55→16:41)
[2018-06-24] MEDS: QUEtiapine FUMARATE 100 MG TABLET PO SCH (08:36)
[2018-06-24] MEDS: BuPROPion HCL XL 150 MG ER TABLET PO SCH (08:36)
[2018-06-24] MEDS: HydrALAZINE HCL 25 MG TABLET PO SCH (09:00)
[2018-06-24] MEDS: CARISOPRODOL 350 MG TABLET PO SCH (09:00)
[2018-06-24] MEDS: LISINOPRIL 10 MG TABLET PO SCH (09:00)
[2018-06-24] MEDS: AmLODIPine BESYLATE 5 MG TABLET PO SCH (09:00)
[2018-06-24] MEDS: HEPARIN SODIUM,PORCINE 5,000 UNITS/ML VIAL SQ SCH ×2 (09:00→16:37)
[2018-06-24 09:08] VITALS: BP 119/84
[2018-06-24 16:41] VITALS: BP 138/89
[2018-06-24] MEDS: QUEtiapine FUMARATE 200 MG TABLET PO SCH (20:29)
[2018-06-25 00:15] VITALS: BP 147/100
[2018-06-25] MEDS: IBUPROFEN 400 MG TABLET PO PRN (00:29)
[2018-06-25 03:45] VITALS: BP 122/88
[2018-06-25] MEDS: OxyCODONE HCL 20 MG ER TABLET PO PRN ×2 (03:49→17:00)
[2018-06-25] MEDS: BuPROPion HCL XL 150 MG ER TABLET PO SCH (08:06)
[2018-06-25] MEDS: QUEtiapine FUMARATE 100 MG TABLET PO SCH (08:06)
[2018-06-25] MEDS: CARISOPRODOL 350 MG TABLET PO SCH (09:00)
[2018-06-25] MEDS: HydrALAZINE HCL 25 MG TABLET PO SCH (09:00)
[2018-06-25] MEDS: HEPARIN SODIUM,PORCINE 5,000 UNITS/ML VIAL SQ SCH ×2 (09:00→17:00)
[2018-06-25] MEDS: AmLODIPine BESYLATE 5 MG TABLET PO SCH (09:00)
[2018-06-25] MEDS: LISINOPRIL 10 MG TABLET PO SCH (09:00)
[2018-06-25 09:10] VITALS: BP 139/99
[2018-06-25 16:59] VITALS: BP 150/99
[2018-06-25] MEDS: QUEtiapine FUMARATE 200 MG TABLET PO SCH (22:00)
[2018-06-26 00:13] VITALS: BP 150/107
[2018-06-26] MEDS: OxyCODONE HCL 20 MG ER TABLET PO PRN ×2 (01:03→17:35)
[2018-06-26 08:30] VITALS: BP 124/74
[2018-06-26] MEDS: HydrALAZINE HCL 25 MG TABLET PO SCH (09:00)
[2018-06-26] MEDS: AmLODIPine BESYLATE 5 MG TABLET PO SCH (09:00)
[2018-06-26] MEDS: HEPARIN SODIUM,PORCINE 5,000 UNITS/ML VIAL SQ SCH ×2 (09:00→17:35)
[2018-06-26] MEDS: CARISOPRODOL 350 MG TABLET PO SCH (09:00)
[2018-06-26] MEDS: LISINOPRIL 10 MG TABLET PO SCH (09:00)
[2018-06-26] MEDS: BuPROPion HCL XL 150 MG ER TABLET PO SCH (10:18)
[2018-06-26] MEDS: QUEtiapine FUMARATE 100 MG TABLET PO SCH (10:18)
[2018-06-26 17:37] VITALS: BP 135/69
[2018-06-26] MEDS: QUEtiapine FUMARATE 200 MG TABLET PO SCH (21:21)
[2018-06-26] MEDS: IBUPROFEN 400 MG TABLET PO PRN (22:02)
[2018-06-27 01:00] VITALS: BP 138/110
[2018-06-27 08:15] VITALS: BP 136/90
[2018-06-27] MEDS: LISINOPRIL 10 MG TABLET PO SCH (09:00)
[2018-06-27] MEDS: HydrALAZINE HCL 25 MG TABLET PO SCH (09:00)
[2018-06-27] MEDS: HEPARIN SODIUM,PORCINE 5,000 UNITS/ML VIAL SQ SCH ×2 (09:00→16:32)
[2018-06-27] MEDS: CARISOPRODOL 350 MG TABLET PO SCH (09:00)
[2018-06-27] MEDS: AmLODIPine BESYLATE 5 MG TABLET PO SCH (09:00)
[2018-06-27] MEDS: BuPROPion HCL XL 150 MG ER TABLET PO SCH (10:21)
[2018-06-27] MEDS: QUEtiapine FUMARATE 100 MG TABLET PO SCH (10:21)
[2018-06-27 19:45] VITALS: BP 100/74
[2018-06-27] MEDS: OxyCODONE HCL 20 MG ER TABLET PO PRN (19:45)
[2018-06-27] MEDS: QUEtiapine FUMARATE 200 MG TABLET PO SCH (20:47)
[2018-06-28] MEDS: IBUPROFEN 400 MG TABLET PO PRN (00:06)
[2018-06-28] MEDS: CloNIDine HCL 0.1 MG TABLET PO PRN (00:06)
[2018-06-28 00:07] VITALS: BP 171/118
[2018-06-28 01:06] VITALS: BP 131/93
[2018-06-28 08:07] VITALS: BP 117/79
[2018-06-28] MEDS: QUEtiapine FUMARATE 100 MG TABLET PO SCH (08:07)
[2018-06-28] MEDS: AmLODIPine BESYLATE 5 MG TABLET PO SCH (08:07)
[2018-06-28] MEDS: HydrALAZINE HCL 25 MG TABLET PO SCH (08:07)
[2018-06-28] MEDS: BuPROPion HCL XL 150 MG ER TABLET PO SCH (08:07)
[2018-06-28] MEDS: OxyCODONE HCL 20 MG ER TABLET PO PRN ×2 (08:07→18:25)
[2018-06-28] MEDS: LISINOPRIL 10 MG TABLET PO SCH (08:07)
[2018-06-28] MEDS: HEPARIN SODIUM,PORCINE 5,000 UNITS/ML VIAL SQ SCH ×2 (08:08→17:36)
[2018-06-28] MEDS: CARISOPRODOL 350 MG TABLET PO SCH (08:08)
[2018-06-28 18:19] VITALS: BP 116/72
[2018-06-28] MEDS: QUEtiapine FUMARATE 200 MG TABLET PO SCH (21:10)
[2018-06-29] MEDS: HydrALAZINE HCL 25 MG TABLET PO SCH (09:00)
[2018-06-29] MEDS: LISINOPRIL 10 MG TABLET PO SCH (09:00)
[2018-06-29] MEDS: AmLODIPine BESYLATE 5 MG TABLET PO SCH (09:00)
[2018-06-29] MEDS: CARISOPRODOL 350 MG TABLET PO SCH (09:00)
[2018-06-29] MEDS: BuPROPion HCL XL 150 MG ER TABLET PO SCH (09:41)
[2018-06-29] MEDS: HEPARIN SODIUM,PORCINE 5,000 UNITS/ML VIAL SQ SCH ×2 (09:41→17:12)
[2018-06-29] MEDS: QUEtiapine FUMARATE 100 MG TABLET PO SCH (09:41)
[2018-06-29 10:44] VITALS: BP 116/71
[2018-06-29] MEDS: OxyCODONE HCL 20 MG ER TABLET PO PRN (10:48)
[2018-06-29 19:22] VITALS: BP 117/78
[2018-06-29] MEDS: QUEtiapine FUMARATE 200 MG TABLET PO SCH (22:27)
[2018-06-30 00:36] VITALS: BP 153/107
[2018-06-30] MEDS: OxyCODONE HCL 20 MG ER TABLET PO PRN ×2 (00:39→08:17)
[2018-06-30 08:17] VITALS: BP 133/86
[2018-06-30] MEDS: BuPROPion HCL XL 150 MG ER TABLET PO SCH (08:18)
[2018-06-30] MEDS: AmLODIPine BESYLATE 5 MG TABLET PO SCH (09:00)
[2018-06-30] MEDS: QUEtiapine FUMARATE 100 MG TABLET PO SCH (09:00)
[2018-06-30] MEDS: CARISOPRODOL 350 MG TABLET PO SCH (09:00)
[2018-06-30] MEDS: HEPARIN SODIUM,PORCINE 5,000 UNITS/ML VIAL SQ SCH ×2 (09:00→17:18)
[2018-06-30] MEDS: HydrALAZINE HCL 25 MG TABLET PO SCH (09:00)
[2018-06-30] MEDS: LISINOPRIL 10 MG TABLET PO SCH (09:00)
[2018-06-30 09:16] VITALS: BP 123/84
[2018-06-30] MEDS: QUEtiapine FUMARATE 200 MG TABLET PO SCH (21:07)
[2018-07-01 00:05] VITALS: BP 171/115
[2018-07-01] MEDS: CloNIDine HCL 0.1 MG TABLET PO PRN (00:07)
[2018-07-01] MEDS: OxyCODONE HCL 20 MG ER TABLET PO PRN (00:07)
[2018-07-01] MEDS: BuPROPion HCL XL 150 MG ER TABLET PO SCH (08:49)
[2018-07-01] MEDS: QUEtiapine FUMARATE 100 MG TABLET PO SCH (08:50)
[2018-07-01] MEDS: AmLODIPine BESYLATE 5 MG TABLET PO SCH (09:00)
[2018-07-01] MEDS: LISINOPRIL 10 MG TABLET PO SCH (09:00)
[2018-07-01] MEDS: CARISOPRODOL 350 MG TABLET PO SCH (09:00)
[2018-07-01] MEDS: HEPARIN SODIUM,PORCINE 5,000 UNITS/ML VIAL SQ SCH (09:00)
[2018-07-01] MEDS: HydrALAZINE HCL 25 MG TABLET PO SCH (09:00)
[2018-07-01 09:08] VITALS: BP 117/76
[2018-07-01] MEDS ORDERED: QUET200T PO (09:36)
[2018-07-01] MEDS ORDERED: QUET100T PO (09:36)
[2018-07-01] MEDS ORDERED: CARI350 PO (09:38)
== END 2018-07-01 10:45 | disposition home or self-care (01) | DRG 750 ==
LOC: EMS 00:08 → 3EI 17:49
PROVIDERS: ADMIT Psychiatry & Neurology Child & Adolescent Psychiatry; ATTEND Psychiatry & Neurology Psychiatry
DX: F25.0 Schizoaffective disorder, bipolar type (principal); E87.1 Hypo-osmolality and hyponatremia; R45.851 Suicidal ideations; B18.2 Chronic viral hepatitis C; D64.9 Anemia, unspecified; E78.5 Hyperlipidemia, unspecified; F41.9 Anxiety disorder, unspecified; G47.00 Insomnia, unspecified; I10 Essential (primary) hypertension; K59.09 Other constipation; R00.0 Tachycardia, unspecified; F19.10 Other psychoactive substance abuse, uncomplicated; R33.9 Retention of urine, unspecified; M62.838 Other muscle spasm; F17.210 Nicotine dependence, cigarettes, uncomplicated; F15.90 Other stimulant use, unspecified, uncomplicated; Z59.0 Homelessness; Z86.14 Personal history of Methicillin resistant Staphylococcus aureus infection; Z91.19 Patient's noncompliance with other medical treatment and regimen; Z99.3 Dependence on wheelchair; Z88.8 Allergy status to other drugs, medicaments and biological substances; Z79.899 Other long term (current) drug therapy
CPT/HCPCS: 83036; 84443; 87081; 87086; 97110; 97112; 97116; 97162; 97166; 97530; 97535; 99285; G0480; J1644

== ENCOUNTER 2018-07-25 20:58 | Inpatient (IN) | payer MEDICAID, OTHER ==
[~2018-07-25] VITALS: Ht 170.2 cm; Wt 70.5 kg
[~2018-07-25 20:58] MED LIST changes: +AMLO-511 PO; +BUPR-93 PO; +CARI350 PO; -DSS100 PO; +HEPA500018 SQ; -HEPA500041 SQ; +HYDR25TA84 PO; +LISI-661 PO; -NAFC2FRO2 IVP; -PANT40TA25 PO; +QUET100T PO
[2018-07-25 21:53] LABS: BASOPHILS % (AUTO) 0.5 % (0.0-2.0); EOSINOPHILS % (AUTO) 0.9 % (1.0-6.0); HEMATOCRIT 37.6 % (41-53); HEMOGLOBIN 12.5 g/dL (13.5-17.5); LYMPHOCYTES # (AUTO) 3.2 K/uL (1.0-4.8); LYMPHOCYTES % (AUTO) 29.7 % (22.0-44.0); MEAN CORPUSCULAR HEMOGLOBIN 26.2 pg (26.0-34.0); MEAN CORPUSCULAR HGB CONC 33.4 G/dL (31.0-37.0); MEAN CORPUSCULAR VOLUME 78 fL (80-100); MONOCYTES # (AUTO) 0.9 K/uL (0.1-1.0); MONOCYTES % (AUTO) 8.4 % (2.0-9.0); NEUTROPHILS # (AUTO) 6.4 K/uL (1.8-7.7); NEUTROPHILS % (AUTO) 60.5 % (40.0-70.0); PLATELET COUNT (AUTO) 385 K/uL (150-450); RED CELL DISTRIBUTION WIDTH 16.7 % (11.5-14.5)
[2018-07-25] MEDS ORDERED: LORazepam 2 MG TABLET PO ONE (22:00)
[2018-07-25] MEDS ORDERED: QUEtiapine FUMARATE 100 MG TABLET PO ONE (22:00)
[2018-07-25] MEDS ORDERED: DiphenhydrAMINE HCL 25 MG CAPSULE PO ONE (22:00)
[2018-07-25 22:03] LABS: ANION GAP 6 mmol/L (8-16); CALCIUM, TOTAL 8.9 mg/dL (8.8-10.5); CARBON DIOXIDE 33 mmol/L (22-29); CHLORIDE 103 mmol/L (98-107); CREATININE 0.91 mg/dL (0.60-1.30); GLOMERULAR FILTR. RATE CALC > 60 mL/min (>60); GLUCOSE,RANDOM 89 mg/dL (70-110); SODIUM SERUM 142 mmol/L (136-145); UREA NITROGEN, BLOOD 11 mg/dL (7-18)
[2018-07-25 22:08] LABS: ALANINE AMINOTRANSFERASE 43 U/L (12-78); ALBUMIN 3.2 g/dL (3.4-5.0); ALKALINE PHOSPHATASE 109 U/L (46-116); ASPARTATE AMINOTRANSFERASE 51 U/L (15-37); BILIRUBIN,TOTAL 0.5 mg/dL (0.1-1.0); TOTAL PROTEIN, SERUM 7.9 g/dL (6.4-8.2)
[2018-07-25] MEDS ORDERED: LORazepam 2 MG TABLET PO PRN ×2 (22:30→22:45)
[2018-07-25] MEDS ORDERED: ZOLPIDEM TARTRATE 10 MG TABLET PO PRN ×2 (22:30→22:45)
[2018-07-25] MEDS ORDERED: HALOPERIDOL 5 MG TABLET PO PRN ×2 (22:30→22:45)
[2018-07-25] MEDS ORDERED: LORazepam 2 MG/ML VIAL ONE (22:35)
[2018-07-25] MEDS ORDERED: HALOPERIDOL LACTATE 5 MG/ML VIAL ONE (22:35)
[2018-07-25] MEDS ORDERED: DiphenhydrAMINE HCL 50 MG/ML VIAL ONE (22:35)
[2018-07-25] MEDS ORDERED: DiphenhydrAMINE HCL 50 MG/ML VIAL IM ONE (22:45)
[2018-07-25] MEDS ORDERED: LORazepam 2 MG/ML VIAL IM ONE (22:45)
[2018-07-25] MEDS ORDERED: HALOPERIDOL LACTATE 5 MG/ML VIAL IM ONE (22:45)
[2018-07-25] MEDS ORDERED: POTASSIUM CHLORIDE 10% 40 MEQ/30 ML LIQUID UDCUP PO ONE (23:00)
[2018-07-26 03:15] VITALS: BP 136/90
[2018-07-26] MEDS ORDERED: -PHARMACY VACCINE NOTE- MISC ONE (05:00)
[2018-07-26] MEDS ORDERED: IBUPROFEN 400 MG TABLET PO PRN (08:00)
[2018-07-26] MEDS ORDERED: MAGNESIUM HYDROXIDE SUSPENSION 30 ML UDCUP PO PRN (08:00)
[2018-07-26] MEDS ORDERED: NICOTINE 14 MG/24 HOUR PATCH TD PRN (08:00)
[2018-07-26] MEDS ORDERED: LOPERAMIDE HCL 2 MG CAPSULE PO PRN (08:00)
[2018-07-26] MEDS ORDERED: MAG HYDROX/AL HYDROX/SIMETH ES 30 ML SUSPENSION UDCUP PO PRN (08:00)
[2018-07-26] MEDS ORDERED: CloNIDine HCL 0.1 MG TABLET PO PRN (08:00)
[2018-07-26] MEDS ORDERED: ONDANSETRON HCL 4 MG TABLET PO PRN (08:00)
[2018-07-26] MEDS ORDERED: SENNA 187 MG TABLET PO PRN (08:00)
[2018-07-26] MEDS ORDERED: CYCLOBENZAPRINE HCL 10 MG TABLET PO PRN (08:00)
[2018-07-26] MEDS ORDERED: PETROLATUM,WHITE 71 GM JELLY TP PRN (08:00)
[2018-07-26] MEDS ORDERED: GuaiFENesin/D-METHORPHAN [SUGAR-FREE] 200-20MG/10 ML SYRUP UDCUP PO PRN (08:00)
[2018-07-26] MEDS ORDERED: DOCUSATE SODIUM 100 MG CAPSULE PO PRN ×2 (08:00)
[2018-07-26] MEDS ORDERED: ALBUTEROL SULFATE HFA 90 MCG/PUFF 8 GM INHALER IH PRN (08:00)
[2018-07-26] MEDS ORDERED: ACETAMINOPHEN 325 MG TABLET PO PRN (08:00)
[2018-07-26] MEDS: DOLUTEGRAVIR SODIUM 50 MG TABLET PO SCH (09:00)
[2018-07-26] MEDS: CARISOPRODOL 350 MG TABLET PO SCH (09:00)
[2018-07-26] MEDS: LISINOPRIL 10 MG TABLET PO SCH (09:00)
[2018-07-26] MEDS: AmLODIPine BESYLATE 5 MG TABLET PO SCH (09:00)
[2018-07-26] MEDS: HydrALAZINE HCL 25 MG TABLET PO SCH (09:00)
[2018-07-26 16:00] VITALS: BP 150/87
[2018-07-26] MEDS: QUEtiapine FUMARATE 200 MG TABLET PO SCH (21:04)
[2018-07-27 06:21] LABS: BASOPHILS % (AUTO) 0.5 % (0.0-2.0); EOSINOPHILS % (AUTO) 2.5 % (1.0-6.0); HEMATOCRIT 35.6 % (41-53); HEMOGLOBIN 11.8 g/dL (13.5-17.5); LYMPHOCYTES # (AUTO) 1.5 K/uL (1.0-4.8); LYMPHOCYTES % (AUTO) 29.7 % (22.0-44.0); MEAN CORPUSCULAR HEMOGLOBIN 26.4 pg (26.0-34.0); MEAN CORPUSCULAR HGB CONC 33.2 G/dL (31.0-37.0); MEAN CORPUSCULAR VOLUME 80 fL (80-100); MONOCYTES # (AUTO) 0.4 K/uL (0.1-1.0); MONOCYTES % (AUTO) 7.8 % (2.0-9.0); NEUTROPHILS % (AUTO) 59.5 % (40.0-70.0); PLATELET COUNT (AUTO) 292 K/uL (150-450); RED BLOOD CELL COUNT(AUTO) 4.47 MIL/uL (4.50-5.90); RED CELL DISTRIBUTION WIDTH 16.6 % (11.5-14.5)
[2018-07-27 06:39] LABS: HEMOGLOBIN A1C 5.6 % (4.5-6.2)
[2018-07-27 07:00] LABS: ALANINE AMINOTRANSFERASE 51 U/L (12-78); ALBUMIN 2.5 g/dL (3.4-5.0); ALKALINE PHOSPHATASE 84 U/L (46-116); ANION GAP 8 mmol/L (8-16); ASPARTATE AMINOTRANSFERASE 95 U/L (15-37); BILIRUBIN,TOTAL 0.5 mg/dL (0.1-1.0); CALCIUM, TOTAL 8.1 mg/dL (8.8-10.5); CARBON DIOXIDE 30 mmol/L (22-29); CHLORIDE 102 mmol/L (98-107); CHOL/HDL RATIO 2.3 (4.2-7.3); CHOLESTEROL 90 mg/dL (131-200); CREATININE 0.74 mg/dL (0.60-1.30); GLOMERULAR FILTR. RATE CALC > 60 mL/min (>60); GLUCOSE,RANDOM 81 mg/dL (70-110); HDL CHOLESTEROL 40 mg/dL (40-60); LDL CHOL (CALC.) 40 mg/dL (0-130); POTASSIUM 3.3 mmol/L (3.5-5.1); SODIUM SERUM 140 mmol/L (136-145); THYROID STIMULATING HORMONE 0.69 uIU/mL (0.36-3.74); TOTAL PROTEIN, SERUM 6.3 g/dL (6.4-8.2); TRIGLYCERIDES 49 mg/dL (15-150); UREA NITROGEN, BLOOD 15 mg/dL (7-18)
[2018-07-27 08:15] VITALS: BP 138/79
[2018-07-27] MEDS ORDERED: AmLODIPine BESYLATE 5 MG TABLET PO SCH (09:00)
[2018-07-27] MEDS ORDERED: CARISOPRODOL 350 MG TABLET PO SCH (09:00)
[2018-07-27] MEDS ORDERED: HydrALAZINE HCL 25 MG TABLET PO SCH (09:00)
[2018-07-27] MEDS: DOLUTEGRAVIR SODIUM 50 MG TABLET PO SCH (09:00)
[2018-07-27] MEDS ORDERED: BuPROPion HCL XL 150 MG ER TABLET PO SCH (09:00)
[2018-07-27] MEDS ORDERED: LISINOPRIL 10 MG TABLET PO SCH (09:00)
[2018-07-27] MEDS: CARISOPRODOL 350 MG TABLET PO SCH (09:00)
[2018-07-27] MEDS: HydrALAZINE HCL 25 MG TABLET PO SCH (09:54)
[2018-07-27] MEDS: BuPROPion HCL XL 150 MG ER TABLET PO SCH (09:56)
[2018-07-27] MEDS: AmLODIPine BESYLATE 5 MG TABLET PO SCH (09:57)
[2018-07-27] MEDS: QUEtiapine FUMARATE 100 MG TABLET PO SCH (09:57)
[2018-07-27] MEDS: LISINOPRIL 10 MG TABLET PO SCH (10:00)
[2018-07-27 16:46] VITALS: BP 133/97
[2018-07-27] MEDS: QUEtiapine FUMARATE 200 MG TABLET PO SCH (20:30)
[2018-07-28] MEDS ORDERED: POTASSIUM CHLORIDE 20 MEQ ER TABLET PO ONE (06:30)
[2018-07-28 08:30] VITALS: BP 135/75
[2018-07-28] MEDS: DOLUTEGRAVIR SODIUM 50 MG TABLET PO SCH (09:00)
[2018-07-28] MEDS: HydrALAZINE HCL 25 MG TABLET PO SCH (09:00)
[2018-07-28] MEDS: CARISOPRODOL 350 MG TABLET PO SCH (09:00)
[2018-07-28] MEDS: QUEtiapine FUMARATE 100 MG TABLET PO SCH (10:17)
[2018-07-28] MEDS: BuPROPion HCL XL 150 MG ER TABLET PO SCH (10:17)
[2018-07-28] MEDS: AmLODIPine BESYLATE 5 MG TABLET PO SCH (10:18)
[2018-07-28] MEDS: LISINOPRIL 10 MG TABLET PO SCH (10:19)
[2018-07-28 21:24] VITALS: BP 138/78
[2018-07-28] MEDS: QUEtiapine FUMARATE 200 MG TABLET PO SCH (21:24)
[2018-07-28] MEDS: OxyCODONE HCL 20 MG ER TABLET PO PRN (21:25)
[2018-07-29 03:17] VITALS: BP 148/95
[2018-07-29] MEDS: HydrALAZINE HCL 25 MG TABLET PO SCH (09:00)
[2018-07-29] MEDS: DOLUTEGRAVIR SODIUM 50 MG TABLET PO SCH (09:00)
[2018-07-29] MEDS: CARISOPRODOL 350 MG TABLET PO SCH (09:00)
[2018-07-29] MEDS: LISINOPRIL 10 MG TABLET PO SCH (09:00)
[2018-07-29] MEDS: AmLODIPine BESYLATE 5 MG TABLET PO SCH (09:00)
[2018-07-29] MEDS: QUEtiapine FUMARATE 100 MG TABLET PO SCH (09:09)
[2018-07-29] MEDS: BuPROPion HCL XL 150 MG ER TABLET PO SCH (09:09)
[2018-07-29] MEDS: OxyCODONE HCL 20 MG ER TABLET PO PRN (09:30)
[2018-07-29] MEDS ORDERED: EPIV150 PO (13:36)
[2018-07-29] MEDS ORDERED: DOLU50TA PO (13:36)
== END 2018-07-29 15:05 | disposition home or self-care (01) | DRG 750 ==
LOC: EMS 21:00 → 3EI 23:30
PROVIDERS: ADMIT Psychiatry & Neurology Psychiatry; ATTEND Psychiatry & Neurology Psychiatry
DX: F25.1 Schizoaffective disorder, depressive type (principal); R45.851 Suicidal ideations; Z59.0 Homelessness; I10 Essential (primary) hypertension; G89.29 Other chronic pain; F15.90 Other stimulant use, unspecified, uncomplicated; F14.90 Cocaine use, unspecified, uncomplicated; E87.6 Hypokalemia; F10.10 Alcohol abuse, uncomplicated; B18.2 Chronic viral hepatitis C; F17.210 Nicotine dependence, cigarettes, uncomplicated; J44.9 Chronic obstructive pulmonary disease, unspecified; F41.9 Anxiety disorder, unspecified; Z60.2 Problems related to living alone; G83.14 Monoplegia of lower limb affecting left nondominant side; Z71.41 Alcohol abuse counseling and surveillance of alcoholic; Z71.6 Tobacco abuse counseling; Z86.14 Personal history of Methicillin resistant Staphylococcus aureus infection; Z79.899 Other long term (current) drug therapy; Z88.8 Allergy status to other drugs, medicaments and biological substances; Z23 Encounter for immunization; Z71.51 Drug abuse counseling and surveillance of drug abuser
CPT/HCPCS: 83036; 84132; 84443; 87081; 90686; 96372; G0480; J1200; J1630; J2060

== ENCOUNTER 2018-07-31 05:15 | Emergency (ER) | payer MEDICAID, OTHER ==
[~2018-07-31] VITALS: Ht 170.2 cm; Wt 70.5 kg
[~2018-07-31 05:15] MED LIST changes: +DOLU50TA PO; +EPIV150 PO; -HEPA500018 SQ
[2018-07-31 05:40] LABS: BASOPHILS % (AUTO) 0.6 % (0.0-2.0); EOSINOPHILS % (AUTO) 1.5 % (1.0-6.0); HEMATOCRIT 42.5 % (41-53); LYMPHOCYTES % (AUTO) 29.9 % (22.0-44.0); MEAN CORPUSCULAR HEMOGLOBIN 26.2 pg (26.0-34.0); MEAN CORPUSCULAR VOLUME 79 fL (80-100); MONOCYTES # (AUTO) 0.8 K/uL (0.1-1.0); MONOCYTES % (AUTO) 11.6 % (2.0-9.0); NEUTROPHILS # (AUTO) 3.7 K/uL (1.8-7.7); NEUTROPHILS % (AUTO) 56.4 % (40.0-70.0); PLATELET COUNT (AUTO) 377 K/uL (150-450); RED BLOOD CELL COUNT(AUTO) 5.36 MIL/uL (4.50-5.90); RED CELL DISTRIBUTION WIDTH 17.1 % (11.5-14.5)
[2018-07-31 05:49] LABS: ANION GAP 11 mmol/L (8-16); CALCIUM, TOTAL 9.5 mg/dL (8.8-10.5); CARBON DIOXIDE 28 mmol/L (22-29); CHLORIDE 101 mmol/L (98-107); CREATININE 0.85 mg/dL (0.60-1.30); GLOMERULAR FILTR. RATE CALC > 60 mL/min (>60); GLUCOSE,RANDOM 88 mg/dL (70-110); POTASSIUM 4.2 mmol/L (3.5-5.1); SODIUM SERUM 140 mmol/L (136-145); UREA NITROGEN, BLOOD 12 mg/dL (7-18)
[2018-07-31 05:55] LABS: ALANINE AMINOTRANSFERASE 96 U/L (12-78); ALBUMIN 3.6 g/dL (3.4-5.0); ALKALINE PHOSPHATASE 127 U/L (46-116); ASPARTATE AMINOTRANSFERASE 128 U/L (15-37); BILIRUBIN,TOTAL 0.7 mg/dL (0.1-1.0)
[2018-07-31] MEDS ORDERED: LORazepam 2 MG TABLET PO ONE (06:30)
[2018-07-31] MEDS: HALOPERIDOL 5 MG TABLET PO ONE ×2 (06:34→07:12)
[2018-07-31] MEDS ORDERED: NAPROXEN 250 MG TABLET PO ONE (09:00)
[2018-07-31 09:13] VITALS: BP 142/101
== END 2018-07-31 09:10 | disposition home or self-care (01) ==
LOC: EMS 05:16
DX: F32.9 Major depressive disorder, single episode, unspecified (principal); F20.9 Schizophrenia, unspecified; F41.9 Anxiety disorder, unspecified; F17.210 Nicotine dependence, cigarettes, uncomplicated; F15.90 Other stimulant use, unspecified, uncomplicated; F14.90 Cocaine use, unspecified, uncomplicated; Z59.0 Homelessness; Z88.8 Allergy status to other drugs, medicaments and biological substances; Z91.018 Allergy to other foods; Z79.899 Other long term (current) drug therapy
CPT/HCPCS: 36415; 80053; 85025; 99284; G0480

== ENCOUNTER 2018-08-24 20:09 | Inpatient (IN) | payer MEDICAID ==
[~2018-08-24] VITALS: Ht 170.2 cm; Wt 67.9 kg
[2018-08-24 22:00] VITALS: BP 173/118
[2018-08-24] MEDS ORDERED: NICOTINE 14 MG/24 HOUR PATCH TD PRN (22:15)
[2018-08-24] MEDS ORDERED: GuaiFENesin/D-METHORPHAN [SUGAR-FREE] 200-20MG/10 ML SYRUP UDCUP PO PRN (22:15)
[2018-08-24] MEDS ORDERED: DOCUSATE SODIUM 100 MG CAPSULE PO PRN (22:15)
[2018-08-24] MEDS ORDERED: PETROLATUM,WHITE 71 GM JELLY TP PRN (22:15)
[2018-08-24] MEDS ORDERED: LOPERAMIDE HCL 2 MG CAPSULE PO PRN (22:15)
[2018-08-24] MEDS ORDERED: CloNIDine HCL 0.1 MG TABLET PO PRN (22:15)
[2018-08-24] MEDS ORDERED: MAGNESIUM HYDROXIDE SUSPENSION 30 ML UDCUP PO PRN (22:15)
[2018-08-24] MEDS ORDERED: ALBUTEROL SULFATE HFA 90 MCG/PUFF 8 GM INHALER IH PRN (22:15)
[2018-08-24] MEDS ORDERED: MAG HYDROX/AL HYDROX/SIMETH ES 30 ML SUSPENSION UDCUP PO PRN (22:15)
[2018-08-24] MEDS ORDERED: ONDANSETRON HCL 4 MG TABLET PO PRN (22:15)
[2018-08-24] MEDS ORDERED: CloNIDine HCL 0.1 MG TABLET ONE (22:24)
[2018-08-24] MEDS ORDERED: OxyCODONE HCL 20 MG ER TABLET PO PRN (22:45)
[2018-08-24 23:52] VITALS: BP 148/108
[2018-08-24] MEDS: LORazepam 2 MG TABLET PO PRN (23:52)
[2018-08-24] MEDS: IBUPROFEN 400 MG TABLET PO PRN (23:52)
[2018-08-25] VITALS (7 sets, daily range): BP systolic 133–162; BP diastolic 94–111
[2018-08-25] MEDS: ACETAMINOPHEN 325 MG TABLET PO PRN ×2 (01:22→15:14)
[2018-08-25] MEDS: ZOLPIDEM TARTRATE 10 MG TABLET PO PRN ×2 (01:22→20:32)
[2018-08-25] MEDS: OxyCODONE HCL 20 MG ER TABLET PO PRN ×3 (03:24→13:01)
[2018-08-25 08:25] LABS: BASOPHILS % (AUTO) 0.7 % (0.0-2.0); EOSINOPHILS % (AUTO) 0.1 % (1.0-6.0); HEMATOCRIT 41.5 % (41-53); HEMOGLOBIN 13.8 g/dL (13.5-17.5); LYMPHOCYTES # (AUTO) 2.4 K/uL (1.0-4.8); LYMPHOCYTES % (AUTO) 29.5 % (22.0-44.0); MEAN CORPUSCULAR HEMOGLOBIN 27.5 pg (26.0-34.0); MEAN CORPUSCULAR HGB CONC 33.4 G/dL (31.0-37.0); MEAN CORPUSCULAR VOLUME 82 fL (80-100); MONOCYTES # (AUTO) 0.6 K/uL (0.1-1.0); NEUTROPHILS % (AUTO) 62.7 % (40.0-70.0); PLATELET COUNT (AUTO) 367 K/uL (150-450); RED BLOOD CELL COUNT(AUTO) 5.04 MIL/uL (4.50-5.90); RED CELL DISTRIBUTION WIDTH 17.3 % (11.5-14.5)
[2018-08-25 08:39] LABS: HEMOGLOBIN A1C 5.5 % (4.5-6.2)
[2018-08-25] MEDS: HydrALAZINE HCL 25 MG TABLET PO SCH (08:42)
[2018-08-25] MEDS: LISINOPRIL 10 MG TABLET PO SCH (08:42)
[2018-08-25] MEDS: MULTIVITAMINS WITH MINERALS, THERAPEUTIC TABLET PO SCH (08:42)
[2018-08-25] MEDS: DOLUTEGRAVIR SODIUM 50 MG TABLET PO SCH (08:42)
[2018-08-25] MEDS: AmLODIPine BESYLATE 5 MG TABLET PO SCH (08:42)
[2018-08-25] MEDS: IBUPROFEN 400 MG TABLET PO PRN (08:43)
[2018-08-25 08:46] LABS: APPEARANCE,URINE TURBID (CLEAR); BILIRUBIN,URINE NEGATIVE (NEGATIVE); GLUCOSE, URINE (UA) NEGATIVE (NEGATIVE); KETONES,URINE NEGATIVE (NEGATIVE); LEUKOCYTE ESTERASE ,URINE NEGATIVE (NEGATIVE); NITRATE,URINE NEGATIVE (NEGATIVE); OCCULT BLOOD,URINE NEGATIVE (NEGATIVE); PROTEIN,URINE NEGATIVE (NEGATIVE); UROBILINOGEN,URINE 0.2 mg/dL (<=1.0)
[2018-08-25 08:49] LABS: AMPHET/METH SCREEN,URINE POSITIVE (NEGATIVE); BARBITURATE SCREEN, URINE NEGATIVE (NEGATIVE); BENZODIAZEPINES SCREEN,URINE NEGATIVE (NEGATIVE); CANNABINOID SCREEN,URINE NEGATIVE (NEGATIVE); COCAINE SCREEN,URINE NEGATIVE (NEGATIVE); METHADONE SCREEN, URINE NEGATIVE (NEGATIVE); OPIATE SCREEN,URINE POSITIVE (NEGATIVE)
[2018-08-25 08:50] LABS: PHENCYCLIDINE SCREEN,URINE NEGATIVE (NEGATIVE)
[2018-08-25 09:04] LABS: BACTERIA,URINE Moderate /HPF (None Seen); RBC,URINE None Seen /HPF (0-2); SQUAMOUS EPITHELIAL CELL,UR Rare /LPF (None Seen); WBC,URINE None Seen /HPF (0-5)
[2018-08-25 09:08] LABS: ALANINE AMINOTRANSFERASE 136 U/L (12-78); ALBUMIN 4.1 g/dL (3.4-5.0); ALKALINE PHOSPHATASE 146 U/L (46-116); ANION GAP 13 mmol/L (8-16); ASPARTATE AMINOTRANSFERASE 116 U/L (15-37); BILIRUBIN,TOTAL 0.7 mg/dL (0.1-1.0); CALCIUM, TOTAL 9.2 mg/dL (8.8-10.5); CARBON DIOXIDE 27 mmol/L (22-29); CHLORIDE 98 mmol/L (98-107); CHOL/HDL RATIO 2.8 (4.2-7.3); CHOLESTEROL 162 mg/dL (131-200); CREATININE 0.92 mg/dL (0.60-1.30); FREE T4 (FREE THYROXINE) 0.92 ng/dL (0.76-1.46); GLOMERULAR FILTR. RATE CALC > 60 mL/min (>60); GLUCOSE,RANDOM 121 mg/dL (70-110); HDL CHOLESTEROL 57 mg/dL (40-60); LDL CHOL (CALC.) 83 mg/dL (0-130); SODIUM SERUM 138 mmol/L (136-145); THYROID STIMULATING HORMONE 7.09 uIU/mL (0.36-3.74); TOTAL PROTEIN, SERUM 8.8 g/dL (6.4-8.2); TRIGLYCERIDES 111 mg/dL (15-150); UREA NITROGEN, BLOOD 22 mg/dL (7-18)
[2018-08-25] MEDS: LORazepam 2 MG TABLET PO PRN (15:14)
[2018-08-25] MEDS ORDERED: TraMADol HCL 50 MG TABLET PO PRN (18:00)
[2018-08-25] MEDS: QUEtiapine FUMARATE 300 MG TABLET PO SCH (20:32)
[2018-08-26 05:45] VITALS: BP 128/88
[2018-08-26] MEDS: OxyCODONE HCL 20 MG ER TABLET PO PRN ×2 (06:20→19:41)
[2018-08-26 08:11] VITALS: BP 108/61
[2018-08-26 08:28] VITALS: BP 128/78
[2018-08-26] MEDS: BuPROPion HCL XL 150 MG ER TABLET PO SCH (08:29)
[2018-08-26] MEDS: AmLODIPine BESYLATE 5 MG TABLET PO SCH (08:29)
[2018-08-26] MEDS: LISINOPRIL 10 MG TABLET PO SCH (08:29)
[2018-08-26] MEDS: MULTIVITAMINS WITH MINERALS, THERAPEUTIC TABLET PO SCH (08:29)
[2018-08-26] MEDS: HydrALAZINE HCL 25 MG TABLET PO SCH (08:29)
[2018-08-26] MEDS: QUEtiapine FUMARATE 200 MG TABLET PO SCH (08:29)
[2018-08-26] MEDS: DOLUTEGRAVIR SODIUM 50 MG TABLET PO SCH (08:43)
[2018-08-26 13:35] VITALS: BP 109/69
[2018-08-26] MEDS: LORazepam 2 MG TABLET PO PRN (13:38)
[2018-08-26] MEDS: IBUPROFEN 400 MG TABLET PO PRN (13:39)
[2018-08-26 16:24] VITALS: BP 103/61
[2018-08-26] MEDS: QUEtiapine FUMARATE 300 MG TABLET PO SCH (20:07)
[2018-08-27 02:33] VITALS: BP 104/84
[2018-08-27] MEDS: ZOLPIDEM TARTRATE 10 MG TABLET PO PRN ×2 (02:43→23:07)
[2018-08-27 08:07] VITALS: BP 123/76
[2018-08-27] MEDS: HydrALAZINE HCL 25 MG TABLET PO SCH (08:42)
[2018-08-27] MEDS: MULTIVITAMINS WITH MINERALS, THERAPEUTIC TABLET PO SCH (08:42)
[2018-08-27] MEDS: BuPROPion HCL XL 150 MG ER TABLET PO SCH (08:42)
[2018-08-27] MEDS: LISINOPRIL 10 MG TABLET PO SCH (08:43)
[2018-08-27] MEDS: QUEtiapine FUMARATE 200 MG TABLET PO SCH (08:43)
[2018-08-27] MEDS: AmLODIPine BESYLATE 5 MG TABLET PO SCH (08:43)
[2018-08-27 08:45] VITALS: BP 128/75
[2018-08-27] MEDS: OxyCODONE HCL 20 MG ER TABLET PO PRN ×2 (08:45→20:48)
[2018-08-27] MEDS: DOLUTEGRAVIR SODIUM 50 MG TABLET PO SCH (08:59)
[2018-08-27 16:24] VITALS: BP 121/70
[2018-08-27] MEDS: QUEtiapine FUMARATE 300 MG TABLET PO SCH (20:09)
[2018-08-27 20:48] VITALS: BP 124/79
[2018-08-28 06:15] VITALS: BP 121/72
[2018-08-28 08:18] VITALS: BP 103/60
[2018-08-28] MEDS: DOLUTEGRAVIR SODIUM 50 MG TABLET PO SCH (08:41)
[2018-08-28] MEDS: QUEtiapine FUMARATE 200 MG TABLET PO SCH (08:42)
[2018-08-28] MEDS: HydrALAZINE HCL 25 MG TABLET PO SCH (08:42)
[2018-08-28] MEDS: LISINOPRIL 10 MG TABLET PO SCH (08:42)
[2018-08-28] MEDS: BuPROPion HCL XL 150 MG ER TABLET PO SCH (08:42)
[2018-08-28] MEDS: MULTIVITAMINS WITH MINERALS, THERAPEUTIC TABLET PO SCH (08:42)
[2018-08-28] MEDS: AmLODIPine BESYLATE 5 MG TABLET PO SCH (08:42)
[2018-08-28 16:46] VITALS: BP 109/67
[2018-08-28] MEDS: OxyCODONE HCL 20 MG ER TABLET PO PRN (16:46)
[2018-08-28] MEDS: QUEtiapine FUMARATE 300 MG TABLET PO SCH (20:18)
[2018-08-28] MEDS: ZOLPIDEM TARTRATE 10 MG TABLET PO PRN (22:11)
[2018-08-29 01:57] VITALS: BP 110/68
[2018-08-29] MEDS: ACETAMINOPHEN 325 MG TABLET PO PRN ×2 (01:59→11:57)
[2018-08-29] MEDS: LORazepam 2 MG TABLET PO PRN (01:59)
[2018-08-29 08:44] VITALS: BP 109/66
[2018-08-29] MEDS: DOLUTEGRAVIR SODIUM 50 MG TABLET PO SCH (09:00)
[2018-08-29 09:08] VITALS: BP 130/72
[2018-08-29] MEDS: QUEtiapine FUMARATE 200 MG TABLET PO SCH (09:10)
[2018-08-29] MEDS: LISINOPRIL 10 MG TABLET PO SCH (09:10)
[2018-08-29] MEDS: HydrALAZINE HCL 25 MG TABLET PO SCH (09:10)
[2018-08-29] MEDS: BuPROPion HCL XL 150 MG ER TABLET PO SCH (09:10)
[2018-08-29] MEDS: MULTIVITAMINS WITH MINERALS, THERAPEUTIC TABLET PO SCH (09:10)
[2018-08-29] MEDS: AmLODIPine BESYLATE 5 MG TABLET PO SCH (09:10)
[2018-08-29] MEDS: OxyCODONE HCL 20 MG ER TABLET PO PRN (09:11)
[2018-08-29 11:55] VITALS: BP 115/64
[2018-08-29] MEDS: IBUPROFEN 400 MG TABLET PO PRN (16:05)
[2018-08-29 16:42] VITALS: BP 103/65
[2018-08-29] MEDS: QUEtiapine FUMARATE 300 MG TABLET PO SCH (21:00)
== END 2018-08-30 06:41 | disposition short-term general hospital (02) | DRG 750 ==
LOC: B2S 21:15 → EDSTATUS 21:18
PROVIDERS: ADMIT Psychiatry & Neurology Child & Adolescent Psychiatry; ATTEND Psychiatry & Neurology Child & Adolescent Psychiatry
DX: F25.1 Schizoaffective disorder, depressive type (principal); F15.20 Other stimulant dependence, uncomplicated; R45.851 Suicidal ideations; F17.200 Nicotine dependence, unspecified, uncomplicated; F41.9 Anxiety disorder, unspecified; G83.14 Monoplegia of lower limb affecting left nondominant side; I10 Essential (primary) hypertension; J44.9 Chronic obstructive pulmonary disease, unspecified; F10.10 Alcohol abuse, uncomplicated; B18.2 Chronic viral hepatitis C; K21.9 Gastro-esophageal reflux disease without esophagitis; F11.10 Opioid abuse, uncomplicated; Z59.0 Homelessness; Z79.899 Other long term (current) drug therapy; Z86.14 Personal history of Methicillin resistant Staphylococcus aureus infection; Z91.5 Personal history of self-harm; Z71.51 Drug abuse counseling and surveillance of drug abuser; Z71.41 Alcohol abuse counseling and surveillance of alcoholic
CPT/HCPCS: 72040; 80074; 83036; 84439; 84443; 87081; 87086

== ENCOUNTER 2018-12-16 04:50 | Emergency (ER) | payer MEDICAID, OTHER ==
[~2018-12-16] VITALS: Ht 170.2 cm; Wt 72.7 kg
[~2018-12-16 04:50] MED LIST changes: -CARI350 PO
[2018-12-16 04:55] VITALS: BP 127/60
[2018-12-16] MEDS ORDERED: KETOROLAC TROMETHAMINE 30 MG/ML VIAL IM ONE (06:30)
== END 2018-12-16 06:48 | disposition home or self-care (01) ==
LOC: EMS 04:50
DX: G89.29 Other chronic pain (principal); M54.2 Cervicalgia; F20.9 Schizophrenia, unspecified; F17.210 Nicotine dependence, cigarettes, uncomplicated; F41.9 Anxiety disorder, unspecified; F32.9 Major depressive disorder, single episode, unspecified; F15.90 Other stimulant use, unspecified, uncomplicated; F14.90 Cocaine use, unspecified, uncomplicated; F19.90 Other psychoactive substance use, unspecified, uncomplicated; Z59.0 Homelessness; Z88.8 Allergy status to other drugs, medicaments and biological substances; Z91.018 Allergy to other foods; Z79.899 Other long term (current) drug therapy
CPT/HCPCS: 96372; 99283; 99406; J1885

== ENCOUNTER 2018-12-18 19:31 | Inpatient (IN) | payer MEDICAID, OTHER ==
[~2018-12-18] VITALS: Ht 170.2 cm; Wt 70.3 kg
[~2018-12-18 19:31] MED LIST changes: -DOLU50TA PO; -EPIV150 PO; -QUET100T PO; -QUET200T PO
[2018-12-18 21:49] LABS: BASOPHILS % (AUTO) 1.2 % (0.0-2.0); EOSINOPHILS % (AUTO) 0.2 % (1.0-6.0); HEMATOCRIT 35.2 % (41-53); HEMOGLOBIN 11.8 g/dL (13.5-17.5); LYMPHOCYTES # (AUTO) 2.3 K/uL (1.0-4.8); LYMPHOCYTES % (AUTO) 51.4 % (22.0-44.0); MEAN CORPUSCULAR HEMOGLOBIN 28.1 pg (26.0-34.0); MEAN CORPUSCULAR HGB CONC 33.6 G/dL (31.0-37.0); MEAN CORPUSCULAR VOLUME 84 fL (80-100); MONOCYTES # (AUTO) 0.5 K/uL (0.1-1.0); MONOCYTES % (AUTO) 11.7 % (2.0-9.0); NEUTROPHILS # (AUTO) 1.6 K/uL (1.8-7.7); NEUTROPHILS % (AUTO) 35.5 % (40.0-70.0); PLATELET COUNT (AUTO) 428 K/uL (150-450); RED BLOOD CELL COUNT(AUTO) 4.21 MIL/uL (4.50-5.90); RED CELL DISTRIBUTION WIDTH 16.1 % (11.5-14.5)
[2018-12-18 21:58] LABS: ANION GAP 6 mmol/L (8-16); CALCIUM, TOTAL 8.8 mg/dL (8.8-10.5); CARBON DIOXIDE 31 mmol/L (22-29); CHLORIDE 102 mmol/L (98-107); CREATININE 0.71 mg/dL (0.60-1.30); GLOMERULAR FILTR. RATE CALC > 60 mL/min (>60); GLUCOSE,RANDOM 87 mg/dL (70-110); POTASSIUM 3.1 mmol/L (3.5-5.1); SODIUM SERUM 139 mmol/L (136-145); UREA NITROGEN, BLOOD 17 mg/dL (7-18)
[2018-12-18 22:04] LABS: ALANINE AMINOTRANSFERASE 82 U/L (12-78); ALBUMIN 3.3 g/dL (3.4-5.0); ALKALINE PHOSPHATASE 76 U/L (46-116); ASPARTATE AMINOTRANSFERASE 61 U/L (15-37); BILIRUBIN,TOTAL 0.5 mg/dL (0.1-1.0); TOTAL PROTEIN, SERUM 8.3 g/dL (6.4-8.2)
[2018-12-19 02:42] LABS: AMPHET/METH SCREEN,URINE POSITIVE (NEGATIVE); BARBITURATE SCREEN, URINE NEGATIVE (NEGATIVE); BENZODIAZEPINES SCREEN,URINE NEGATIVE (NEGATIVE); CANNABINOID SCREEN,URINE NEGATIVE (NEGATIVE); COCAINE SCREEN,URINE NEGATIVE (NEGATIVE); METHADONE SCREEN, URINE NEGATIVE (NEGATIVE); OPIATE SCREEN,URINE NEGATIVE (NEGATIVE); PHENCYCLIDINE SCREEN,URINE NEGATIVE (NEGATIVE)
[2018-12-19] MEDS ORDERED: POTASSIUM CHLORIDE 10% 40 MEQ/30 ML LIQUID UDCUP PO ONE (03:45)
[2018-12-19] MEDS ORDERED: LORazepam 2 MG TABLET PO ONE (03:45)
[2018-12-19] MEDS ORDERED: ZOLPIDEM TARTRATE 10 MG TABLET PO PRN (04:15)
[2018-12-19 05:59] VITALS: BP 126/75
[2018-12-19] MEDS ORDERED: CloNIDine HCL 0.1 MG TABLET PO PRN (07:00)
[2018-12-19] MEDS ORDERED: ALBUTEROL SULFATE HFA 90 MCG/PUFF 8 GM INHALER IH PRN (07:00)
[2018-12-19] MEDS ORDERED: ONDANSETRON HCL 4 MG TABLET PO PRN (07:00)
[2018-12-19] MEDS ORDERED: LOPERAMIDE HCL 2 MG CAPSULE PO PRN (07:00)
[2018-12-19] MEDS ORDERED: MAG HYDROX/AL HYDROX/SIMETH ES 30 ML SUSPENSION UDCUP PO PRN (07:00)
[2018-12-19] MEDS ORDERED: PETROLATUM,WHITE 28 GM JELLY TP PRN (07:00)
[2018-12-19] MEDS ORDERED: GuaiFENesin/D-METHORPHAN [SUGAR-FREE] 200-20MG/10 ML SYRUP UDCUP PO PRN (07:00)
[2018-12-19] MEDS ORDERED: MAGNESIUM HYDROXIDE SUSPENSION 30 ML UDCUP PO PRN (07:00)
[2018-12-19] MEDS ORDERED: DOCUSATE SODIUM 100 MG CAPSULE PO PRN (07:00)
[2018-12-19 08:24] VITALS: BP 122/90
[2018-12-19] MEDS: NICOTINE 21 MG/24 HOUR PATCH TD SCH (08:31)
[2018-12-19] MEDS: BuPROPion HCL XL 150 MG ER TABLET PO SCH (12:15)
[2018-12-19] MEDS: LORazepam 2 MG TABLET PO PRN ×2 (12:33→16:39)
[2018-12-19] MEDS ORDERED: POTASSIUM CHLORIDE 20 MEQ ER TABLET PO ONE (14:15)
[2018-12-19 16:28] VITALS: BP 134/89
[2018-12-19] MEDS: QUEtiapine FUMARATE 200 MG TABLET PO SCH (20:34)
[2018-12-20 00:35] VITALS: BP 119/70
[2018-12-20] MEDS: NICOTINE 21 MG/24 HOUR PATCH TD SCH (08:10)
[2018-12-20] MEDS: BuPROPion HCL XL 150 MG ER TABLET PO SCH (08:10)
[2018-12-20 08:20] LABS: ANION GAP 9 mmol/L (8-16); CARBON DIOXIDE 29 mmol/L (22-29); CHLORIDE 104 mmol/L (98-107); CREATININE 0.58 mg/dL (0.60-1.30); GLOMERULAR FILTR. RATE CALC > 60 mL/min (>60); GLUCOSE,RANDOM 79 mg/dL (70-110); POTASSIUM 3.3 mmol/L (3.5-5.1); SODIUM SERUM 142 mmol/L (136-145); UREA NITROGEN, BLOOD 19 mg/dL (7-18)
[2018-12-20 08:29] VITALS: BP 120/72
[2018-12-20] MEDS: LORazepam 2 MG TABLET PO PRN (09:13)
[2018-12-20] MEDS: DOLUTEGRAVIR SODIUM 50 MG TABLET PO SCH ×2 (10:30→11:42)
[2018-12-20] MEDS: HALOPERIDOL 5 MG TABLET PO PRN (11:17)
[2018-12-20] MEDS ORDERED: POTASSIUM CHLORIDE 20 MEQ ER TABLET PO ONE (14:45)
[2018-12-20 17:05] VITALS: BP 126/74
[2018-12-20] MEDS: QUEtiapine FUMARATE 200 MG TABLET PO SCH (20:45)
[2018-12-21 00:17] VITALS: BP 121/68
[2018-12-21] MEDS: BuPROPion HCL XL 150 MG ER TABLET PO SCH (08:14)
[2018-12-21] MEDS: NICOTINE 21 MG/24 HOUR PATCH TD SCH ×3 (08:15→09:00)
[2018-12-21] MEDS: DOLUTEGRAVIR SODIUM 50 MG TABLET PO SCH ×2 (08:16→08:57)
[2018-12-21 08:33] VITALS: BP 123/79
[2018-12-21] MEDS: LORazepam 2 MG TABLET PO PRN (09:24)
[2018-12-21] MEDS: HALOPERIDOL 5 MG TABLET PO PRN ×2 (11:35→15:59)
[2018-12-21 16:38] VITALS: BP_SYST 141; BP_SYST 148; BP_DIAS 100; BP_DIAS 96
[2018-12-21] MEDS: QUEtiapine FUMARATE 200 MG TABLET PO SCH (20:16)
[2018-12-22 00:17] VITALS: BP 126/78
[2018-12-22] MEDS: LORazepam 2 MG TABLET PO PRN ×2 (06:02→10:00)
[2018-12-22 08:53] VITALS: BP 139/74
[2018-12-22] MEDS: BuPROPion HCL XL 150 MG ER TABLET PO SCH (08:54)
[2018-12-22] MEDS: DOLUTEGRAVIR SODIUM 50 MG TABLET PO SCH (08:54)
[2018-12-22] MEDS: NICOTINE 21 MG/24 HOUR PATCH TD SCH (08:55)
[2018-12-22] MEDS: QUEtiapine FUMARATE 200 MG TABLET PO SCH ×2 (10:00→20:30)
[2018-12-22] MEDS: HALOPERIDOL 5 MG TABLET PO PRN (19:01)
[2018-12-22 19:02] VITALS: BP 133/89
[2018-12-23 00:01] VITALS: BP 126/70
[2018-12-23] MEDS: BuPROPion HCL XL 150 MG ER TABLET PO SCH (08:58)
[2018-12-23] MEDS: DOLUTEGRAVIR SODIUM 50 MG TABLET PO SCH (08:58)
[2018-12-23] MEDS: NICOTINE 21 MG/24 HOUR PATCH TD SCH ×2 (08:59→09:04)
[2018-12-23 09:18] VITALS: BP 131/96
[2018-12-23 16:25] VITALS: BP 123/86
[2018-12-23] MEDS: LORazepam 2 MG TABLET PO PRN (18:23)
[2018-12-23] MEDS: ACETAMINOPHEN 325 MG TABLET PO PRN (20:41)
[2018-12-23] MEDS: QUEtiapine FUMARATE 200 MG TABLET PO SCH (20:41)
[2018-12-24 06:00] VITALS: BP 125/86
[2018-12-24 08:19] VITALS: BP 122/90
[2018-12-24] MEDS: BuPROPion HCL XL 150 MG ER TABLET PO SCH (08:36)
[2018-12-24] MEDS: DOLUTEGRAVIR SODIUM 50 MG TABLET PO SCH ×2 (08:36→09:00)
[2018-12-24] MEDS: LORazepam 2 MG TABLET PO PRN (10:12)
[2018-12-24 16:06] VITALS: BP 119/78
[2018-12-24 20:09] VITALS: BP 116/74
[2018-12-24] MEDS: IBUPROFEN 400 MG TABLET PO PRN (20:09)
[2018-12-24] MEDS: QUEtiapine FUMARATE 200 MG TABLET PO SCH (20:09)
[2018-12-25 00:04] VITALS: BP 119/78
[2018-12-25 08:12] VITALS: BP 120/77
[2018-12-25] MEDS: DOLUTEGRAVIR SODIUM 50 MG TABLET PO SCH (08:15)
[2018-12-25] MEDS: BuPROPion HCL XL 150 MG ER TABLET PO SCH (08:16)
[2018-12-25] MEDS: NICOTINE 21 MG/24 HOUR PATCH TD SCH (08:16)
[2018-12-25] MEDS: LORazepam 2 MG TABLET PO PRN ×2 (08:41→16:33)
[2018-12-25 16:03] VITALS: BP 119/77
[2018-12-25] MEDS: QUEtiapine FUMARATE 200 MG TABLET PO SCH (20:30)
[2018-12-26 00:57] VITALS: BP 106/63
[2018-12-26] MEDS ORDERED: -PHARMACY VACCINE NOTE- MISC ONE (04:00)
[2018-12-26] MEDS: BuPROPion HCL XL 150 MG ER TABLET PO SCH (08:13)
[2018-12-26] MEDS: DOLUTEGRAVIR SODIUM 50 MG TABLET PO SCH (08:13)
[2018-12-26 08:16] VITALS: BP 121/74
[2018-12-26] MEDS: NICOTINE 21 MG/24 HOUR PATCH TD SCH (08:22)
[2018-12-26 16:18] VITALS: BP 111/77
[2018-12-26] MEDS: IBUPROFEN 400 MG TABLET PO PRN (16:20)
[2018-12-26] MEDS: LORazepam 2 MG TABLET PO PRN (16:20)
[2018-12-26] MEDS: QUEtiapine FUMARATE 200 MG TABLET PO SCH (20:06)
[2018-12-27 00:42] VITALS: BP 120/72
[2018-12-27] MEDS: DOLUTEGRAVIR SODIUM 50 MG TABLET PO SCH (08:01)
[2018-12-27] MEDS: BuPROPion HCL XL 150 MG ER TABLET PO SCH (08:01)
[2018-12-27] MEDS: NICOTINE 21 MG/24 HOUR PATCH TD SCH (08:02)
[2018-12-27 08:12] VITALS: BP 113/78
[2018-12-27] MEDS: LORazepam 2 MG TABLET PO PRN (08:44)
[2018-12-27] MEDS: ACETAMINOPHEN 325 MG TABLET PO PRN (08:44)
[2018-12-27 16:00] VITALS: BP 118/90
[2018-12-27] MEDS: QUEtiapine FUMARATE 200 MG TABLET PO SCH (20:05)
[2018-12-28 00:35] VITALS: BP 107/61
[2018-12-28] MEDS: DOLUTEGRAVIR SODIUM 50 MG TABLET PO SCH ×2 (08:14→08:28)
[2018-12-28] MEDS: BuPROPion HCL XL 150 MG ER TABLET PO SCH (08:15)
[2018-12-28] MEDS: NICOTINE 21 MG/24 HOUR PATCH TD SCH (08:15)
[2018-12-28 08:44] VITALS: BP 118/74
[2018-12-28] MEDS: LORazepam 2 MG TABLET PO PRN (08:58)
[2018-12-28 16:12] VITALS: BP 135/94
[2018-12-28] MEDS: QUEtiapine FUMARATE 200 MG TABLET PO SCH (20:20)
[2018-12-29 00:45] VITALS: BP 135/82
[2018-12-29] MEDS: DOLUTEGRAVIR SODIUM 50 MG TABLET PO SCH (09:00)
[2018-12-29] MEDS: AmLODIPine BESYLATE 5 MG TABLET PO SCH (09:00)
[2018-12-29] MEDS: NICOTINE 21 MG/24 HOUR PATCH TD SCH (09:00)
[2018-12-29] MEDS: BuPROPion HCL XL 150 MG ER TABLET PO SCH (09:21)
[2018-12-29 09:25] VITALS: BP 107/64
[2018-12-29] MEDS: LORazepam 2 MG TABLET PO PRN (09:27)
[2018-12-29 16:17] VITALS: BP 121/79
[2018-12-29] MEDS: QUEtiapine FUMARATE 200 MG TABLET PO SCH (20:31)
[2018-12-30 00:07] VITALS: BP 113/80
[2018-12-30 08:15] VITALS: BP 101/62
[2018-12-30] MEDS: BuPROPion HCL XL 150 MG ER TABLET PO SCH (08:42)
[2018-12-30] MEDS: AmLODIPine BESYLATE 5 MG TABLET PO SCH (08:42)
[2018-12-30] MEDS: LORazepam 2 MG TABLET PO PRN ×2 (08:45→16:18)
[2018-12-30] MEDS: NICOTINE 21 MG/24 HOUR PATCH TD SCH (09:00)
[2018-12-30] MEDS: DOLUTEGRAVIR SODIUM 50 MG TABLET PO SCH (09:00)
[2018-12-30 16:32] VITALS: BP 118/87
[2018-12-30] MEDS: QUEtiapine FUMARATE 200 MG TABLET PO SCH (20:11)
[2018-12-31 00:20] VITALS: BP 128/90
[2018-12-31] MEDS: LORazepam 2 MG TABLET PO PRN ×3 (08:11→20:41)
[2018-12-31] MEDS: BuPROPion HCL XL 150 MG ER TABLET PO SCH (08:11)
[2018-12-31] MEDS: AmLODIPine BESYLATE 5 MG TABLET PO SCH (08:12)
[2018-12-31] MEDS: NICOTINE 21 MG/24 HOUR PATCH TD SCH (08:12)
[2018-12-31] MEDS: DOLUTEGRAVIR SODIUM 50 MG TABLET PO SCH (08:12)
[2018-12-31 08:22] VITALS: BP 104/64
[2018-12-31] MEDS: IBUPROFEN 400 MG TABLET PO PRN (14:36)
[2018-12-31 16:37] VITALS: BP 129/91
[2018-12-31] MEDS: QUEtiapine FUMARATE 200 MG TABLET PO SCH (20:38)
[2019-01-01 07:11] VITALS: BP 118/70
[2019-01-01] MEDS: DOLUTEGRAVIR SODIUM 50 MG TABLET PO SCH (08:57)
[2019-01-01] MEDS: BuPROPion HCL XL 150 MG ER TABLET PO SCH (08:57)
[2019-01-01] MEDS: NICOTINE 21 MG/24 HOUR PATCH TD SCH (08:57)
[2019-01-01] MEDS: LORazepam 2 MG TABLET PO PRN ×2 (08:58→16:34)
[2019-01-01 09:29] VITALS: BP 110/65
[2019-01-01] MEDS: AmLODIPine BESYLATE 5 MG TABLET PO SCH (09:50)
[2019-01-01] MEDS: QUEtiapine FUMARATE 200 MG TABLET PO SCH (20:29)
[2019-01-02 09:00] VITALS: BP 110/74
[2019-01-02] MEDS: AmLODIPine BESYLATE 5 MG TABLET PO SCH (09:00)
[2019-01-02] MEDS: NICOTINE 21 MG/24 HOUR PATCH TD SCH (09:00)
[2019-01-02] MEDS: DOLUTEGRAVIR SODIUM 50 MG TABLET PO SCH (09:00)
[2019-01-02] MEDS: BuPROPion HCL XL 150 MG ER TABLET PO SCH (09:15)
[2019-01-02] MEDS: LORazepam 2 MG TABLET PO PRN (09:25)
[2019-01-02 17:31] VITALS: BP 114/72
[2019-01-02] MEDS: QUEtiapine FUMARATE 200 MG TABLET PO SCH (20:13)
[2019-01-03] MEDS: LORazepam 2 MG TABLET PO PRN ×2 (06:31→09:22)
[2019-01-03 08:00] VITALS: BP 120/84
[2019-01-03] MEDS: NICOTINE 21 MG/24 HOUR PATCH TD SCH (09:00)
[2019-01-03] MEDS: DOLUTEGRAVIR SODIUM 50 MG TABLET PO SCH (09:00)
[2019-01-03] MEDS: AmLODIPine BESYLATE 5 MG TABLET PO SCH (09:22)
[2019-01-03] MEDS: BuPROPion HCL XL 150 MG ER TABLET PO SCH (09:22)
[2019-01-03] MEDS ORDERED: QUET200T29 PO (09:32)
[2019-01-03] MEDS ORDERED: BUPR-47 PO (09:32)
[2019-01-03] MEDS ORDERED: QUET200T PO (10:33)
[2019-01-03] MEDS ORDERED: DOLU50TA PO (10:33)
[2019-01-03] MEDS ORDERED: BUPR-93 PO (10:33)
[2019-01-03] MEDS ORDERED: AMLO-511 PO (10:33)
[2019-01-03] MEDS ORDERED: LAMI300T PO (10:33)
== END 2019-01-03 12:15 | disposition home or self-care (01) | DRG 750 ==
LOC: EMS 19:32 → B2S 12-19 04:00
DX: F25.1 Schizoaffective disorder, depressive type (principal); R45.851 Suicidal ideations; Z59.0 Homelessness; B19.20 Unspecified viral hepatitis C without hepatic coma; Z91.5 Personal history of self-harm; D64.9 Anemia, unspecified; D72.819 Decreased white blood cell count, unspecified; E87.6 Hypokalemia; F14.90 Cocaine use, unspecified, uncomplicated; F15.10 Other stimulant abuse, uncomplicated; I10 Essential (primary) hypertension; F17.210 Nicotine dependence, cigarettes, uncomplicated; F41.9 Anxiety disorder, unspecified; Z88.8 Allergy status to other drugs, medicaments and biological substances
CPT/HCPCS: 84132; 87081; G0480

== ENCOUNTER 2019-01-14 08:11 | Inpatient (IN) | payer MEDICAID ==
[~2019-01-14] VITALS: Ht 170.2 cm; Wt 69.1 kg
[~2019-01-14 08:11] MED LIST changes: +BUPR-47 PO; +DOLU50TA PO; -HYDR25TA84 PO; +LAMI300T PO; -LISI-661 PO; +QUET200T PO; +QUET200T29 PO
[2019-01-14 10:37] VITALS: BP 128/90
[2019-01-14] MEDS ORDERED: HALOPERIDOL 5 MG TABLET PO PRN (10:45)
[2019-01-14] MEDS ORDERED: ZOLPIDEM TARTRATE 10 MG TABLET PO PRN (10:45)
[2019-01-14] MEDS ORDERED: LOPERAMIDE HCL 2 MG CAPSULE PO PRN (13:30)
[2019-01-14] MEDS ORDERED: CloNIDine HCL 0.1 MG TABLET PO PRN (13:30)
[2019-01-14] MEDS ORDERED: DOCUSATE SODIUM 100 MG CAPSULE PO PRN (13:30)
[2019-01-14] MEDS ORDERED: MAG HYDROX/AL HYDROX/SIMETH ES 30 ML SUSPENSION UDCUP PO PRN (13:30)
[2019-01-14] MEDS ORDERED: MAGNESIUM HYDROXIDE SUSPENSION 30 ML UDCUP PO PRN (13:30)
[2019-01-14] MEDS ORDERED: ACETAMINOPHEN 325 MG TABLET PO PRN (13:30)
[2019-01-14] MEDS ORDERED: GuaiFENesin/D-METHORPHAN [SUGAR-FREE] 200-20MG/10 ML SYRUP UDCUP PO PRN (13:30)
[2019-01-14] MEDS ORDERED: PETROLATUM,WHITE 28 GM JELLY TP PRN (13:30)
[2019-01-14] MEDS ORDERED: ONDANSETRON HCL 4 MG TABLET PO PRN (13:30)
[2019-01-14] MEDS ORDERED: ALBUTEROL SULFATE HFA 90 MCG/PUFF 8 GM INHALER IH PRN (13:30)
[2019-01-14] MEDS ORDERED: NICOTINE 14 MG/24 HOUR PATCH TD PRN (13:30)
[2019-01-14] MEDS ORDERED: HALOPERIDOL LACTATE 5 MG/ML VIAL ONE (14:01)
[2019-01-14] MEDS ORDERED: LORazepam 2 MG/ML VIAL ONE (14:01)
[2019-01-14] MEDS ORDERED: DiphenhydrAMINE HCL 50 MG/ML VIAL ONE (14:01)
[2019-01-14] MEDS ORDERED: -PHARMACY VACCINE NOTE- MISC ONE (14:15)
[2019-01-14] MEDS ORDERED: HALOPERIDOL LACTATE 5 MG/ML VIAL IM ONE (14:30)
[2019-01-14] MEDS ORDERED: LORazepam 2 MG/ML VIAL IM ONE (14:30)
[2019-01-14] MEDS ORDERED: DiphenhydrAMINE HCL 50 MG/ML VIAL IM ONE (14:30)
[2019-01-14] MEDS: DOLUTEGRAVIR SODIUM 50 MG TABLET PO SCH (20:05)
[2019-01-14] MEDS: AmLODIPine BESYLATE 5 MG TABLET PO SCH (20:06)
[2019-01-14 20:40] VITALS: BP 120/60
[2019-01-14] MEDS: QUEtiapine FUMARATE 200 MG TABLET PO SCH (20:55)
[2019-01-15 01:00] VITALS: BP 110/72
[2019-01-15 08:22] LABS: BASOPHILS % (AUTO) 0.9 % (0.0-2.0); HEMATOCRIT 37.4 % (41-53); HEMOGLOBIN 12.8 g/dL (13.5-17.5); LYMPHOCYTES # (AUTO) 1.9 K/uL (1.0-4.8); LYMPHOCYTES % (AUTO) 49.7 % (22.0-44.0); MEAN CORPUSCULAR HEMOGLOBIN 28.6 pg (26.0-34.0); MEAN CORPUSCULAR HGB CONC 34.1 G/dL (31.0-37.0); MEAN CORPUSCULAR VOLUME 84 fL (80-100); MONOCYTES # (AUTO) 0.6 K/uL (0.1-1.0); MONOCYTES % (AUTO) 15.9 % (2.0-9.0); NEUTROPHILS # (AUTO) 1.2 K/uL (1.8-7.7); NEUTROPHILS % (AUTO) 31.5 % (40.0-70.0); PLATELET COUNT (AUTO) 258 K/uL (150-450); RED BLOOD CELL COUNT(AUTO) 4.47 MIL/uL (4.50-5.90)
[2019-01-15] MEDS: LORazepam 2 MG TABLET PO PRN ×2 (08:46→21:25)
[2019-01-15] MEDS: AmLODIPine BESYLATE 5 MG TABLET PO SCH (08:46)
[2019-01-15 08:52] LABS: HEMOGLOBIN A1C 5.4 % (4.5-6.2)
[2019-01-15] MEDS: DOLUTEGRAVIR SODIUM 50 MG TABLET PO SCH (09:00)
[2019-01-15 09:04] LABS: ALANINE AMINOTRANSFERASE 38 U/L (12-78); ALBUMIN 3.1 g/dL (3.4-5.0); ALKALINE PHOSPHATASE 76 U/L (46-116); ANION GAP 9 mmol/L (8-16); ASPARTATE AMINOTRANSFERASE 39 U/L (15-37); BILIRUBIN,TOTAL 0.5 mg/dL (0.1-1.0); CALCIUM, TOTAL 8.7 mg/dL (8.8-10.5); CARBON DIOXIDE 27 mmol/L (22-29); CHLORIDE 102 mmol/L (98-107); CHOL/HDL RATIO 3.1 (4.2-7.3); CHOLESTEROL 119 mg/dL (131-200); CREATININE 0.88 mg/dL (0.60-1.30); FREE T4 (FREE THYROXINE) 0.99 ng/dL (0.76-1.46); GLOMERULAR FILTR. RATE CALC > 60 mL/min (>60); GLUCOSE,RANDOM 80 mg/dL (70-110); HDL CHOLESTEROL 38 mg/dL (40-60); LDL CHOL (CALC.) 62 mg/dL (0-130); SODIUM SERUM 138 mmol/L (136-145); THYROID STIMULATING HORMONE 0.54 uIU/mL (0.36-3.74); TOTAL PROTEIN, SERUM 7.2 g/dL (6.4-8.2); TRIGLYCERIDES 94 mg/dL (15-150); UREA NITROGEN, BLOOD 19 mg/dL (7-18)
[2019-01-15 09:05] LABS: POTASSIUM 2.9 mmol/L (3.5-5.1)
[2019-01-15] MEDS ORDERED: POTASSIUM CHLORIDE 20 MEQ ER TABLET PO ONE (09:15)
[2019-01-15 09:43] VITALS: BP 112/75
[2019-01-15 16:51] VITALS: BP 115/84
[2019-01-15] MEDS: QUEtiapine FUMARATE 200 MG TABLET PO SCH (20:56)
[2019-01-16 00:39] VITALS: BP 122/72
[2019-01-16] MEDS ORDERED: DOLUTEGRAVIR SODIUM 50 MG TABLET PO SCH (09:00)
[2019-01-16] MEDS ORDERED: AmLODIPine BESYLATE 5 MG TABLET PO SCH (09:00)
[2019-01-16] MEDS: DOLUTEGRAVIR SODIUM 50 MG TABLET PO SCH (09:00)
[2019-01-16] MEDS: AmLODIPine BESYLATE 5 MG TABLET PO SCH (09:26)
[2019-01-16] MEDS: LORazepam 2 MG TABLET PO PRN ×2 (09:32→17:30)
[2019-01-16 16:55] VITALS: BP 138/87
[2019-01-16] MEDS: QUEtiapine FUMARATE 200 MG TABLET PO SCH (20:59)
[2019-01-17 06:22] VITALS: BP 119/77
[2019-01-17 08:00] VITALS: BP 109/76
[2019-01-17] MEDS: DOLUTEGRAVIR SODIUM 50 MG TABLET PO SCH (09:00)
[2019-01-17] MEDS: AmLODIPine BESYLATE 5 MG TABLET PO SCH (09:13)
[2019-01-17] MEDS: LORazepam 2 MG TABLET PO PRN ×2 (09:13→13:20)
[2019-01-17 16:17] VITALS: BP 149/56
[2019-01-17] MEDS: QUEtiapine FUMARATE 200 MG TABLET PO SCH (20:23)
[2019-01-17 21:11] VITALS: BP 115/72
[2019-01-17] MEDS: IBUPROFEN 400 MG TABLET PO PRN (21:13)
[2019-01-18 05:40] VITALS: BP 125/76
[2019-01-18] MEDS: DOLUTEGRAVIR SODIUM 50 MG TABLET PO SCH (08:11)
[2019-01-18 08:31] VITALS: BP 126/77
[2019-01-18] MEDS: AmLODIPine BESYLATE 5 MG TABLET PO SCH (09:34)
[2019-01-18 11:00] LABS: ANION GAP 11 mmol/L (8-16); CARBON DIOXIDE 27 mmol/L (22-29); CHLORIDE 107 mmol/L (98-107); CREATININE 0.75 mg/dL (0.60-1.30); GLOMERULAR FILTR. RATE CALC > 60 mL/min (>60); GLUCOSE,RANDOM 87 mg/dL (70-110); POTASSIUM 3.9 mmol/L (3.5-5.1); SODIUM SERUM 145 mmol/L (136-145); UREA NITROGEN, BLOOD 20 mg/dL (7-18)
[2019-01-18 16:47] VITALS: BP 122/72
[2019-01-18] MEDS: IBUPROFEN 400 MG TABLET PO PRN (16:47)
[2019-01-18] MEDS: LORazepam 2 MG TABLET PO PRN (16:48)
[2019-01-18 17:19] VITALS: BP 128/80
[2019-01-18] MEDS: QUEtiapine FUMARATE 200 MG TABLET PO SCH (20:16)
[2019-01-19 05:26] VITALS: BP 114/76
[2019-01-19 08:43] VITALS: BP 114/69
[2019-01-19] MEDS: DOLUTEGRAVIR SODIUM 50 MG TABLET PO SCH ×2 (09:00→09:18)
[2019-01-19] MEDS: AmLODIPine BESYLATE 5 MG TABLET PO SCH (09:18)
[2019-01-19] MEDS: IBUPROFEN 400 MG TABLET PO PRN (10:48)
[2019-01-19 11:44] VITALS: BP 129/75
[2019-01-19 18:00] VITALS: BP 160/101
[2019-01-19] MEDS ORDERED: AmLODIPine BESYLATE 5 MG TABLET PO ONE (18:00)
[2019-01-19 20:00] VITALS: BP 120/70
[2019-01-19] MEDS: QUEtiapine FUMARATE 200 MG TABLET PO SCH (20:15)
[2019-01-19] MEDS ORDERED: CloNIDine HCL 0.1 MG TABLET PO ONE (21:00)
[2019-01-20 00:21] VITALS: BP 116/82
[2019-01-20 08:31] VITALS: BP 109/67
[2019-01-20] MEDS: DOLUTEGRAVIR SODIUM 50 MG TABLET PO SCH (09:00)
[2019-01-20] MEDS: QUEtiapine FUMARATE 200 MG TABLET PO SCH ×2 (09:03→20:15)
[2019-01-20] MEDS: AmLODIPine BESYLATE 5 MG TABLET PO SCH (09:03)
[2019-01-20 16:22] VITALS: BP 120/71
[2019-01-20] MEDS: IBUPROFEN 400 MG TABLET PO PRN (20:16)
[2019-01-21 06:59] VITALS: BP 114/72
[2019-01-21 08:32] VITALS: BP 111/70
[2019-01-21] MEDS: DOLUTEGRAVIR SODIUM 50 MG TABLET PO SCH (08:49)
[2019-01-21] MEDS: LORazepam 2 MG TABLET PO PRN (08:50)
[2019-01-21] MEDS: QUEtiapine FUMARATE 200 MG TABLET PO SCH ×2 (08:50→20:26)
[2019-01-21] MEDS: AmLODIPine BESYLATE 5 MG TABLET PO SCH (09:28)
[2019-01-21 16:30] VITALS: BP 112/71
[2019-01-22 00:28] VITALS: BP 116/63
[2019-01-22 08:20] VITALS: BP 105/69
[2019-01-22] MEDS: AmLODIPine BESYLATE 5 MG TABLET PO SCH (09:14)
[2019-01-22] MEDS: DOLUTEGRAVIR SODIUM 50 MG TABLET PO SCH (09:15)
[2019-01-22] MEDS: QUEtiapine FUMARATE 200 MG TABLET PO SCH ×2 (09:34→20:46)
[2019-01-22 16:39] VITALS: BP 114/80
[2019-01-23 05:44] VITALS: BP 112/73
[2019-01-23 08:00] VITALS: BP 110/72
[2019-01-23] MEDS: QUEtiapine FUMARATE 200 MG TABLET PO SCH ×2 (08:27→20:08)
[2019-01-23] MEDS: AmLODIPine BESYLATE 5 MG TABLET PO SCH (08:27)
[2019-01-23] MEDS: DOLUTEGRAVIR SODIUM 50 MG TABLET PO SCH (09:00)
[2019-01-23] MEDS: LORazepam 2 MG TABLET PO PRN (09:19)
[2019-01-23 16:27] VITALS: BP 122/68
[2019-01-24 00:20] VITALS: BP 131/76
[2019-01-24 08:46] VITALS: BP 113/66
[2019-01-24] MEDS: DOLUTEGRAVIR SODIUM 50 MG TABLET PO SCH (09:56)
[2019-01-24] MEDS: QUEtiapine FUMARATE 200 MG TABLET PO SCH ×2 (09:57→20:26)
[2019-01-24] MEDS: AmLODIPine BESYLATE 5 MG TABLET PO SCH (09:58)
[2019-01-24] MEDS: LORazepam 2 MG TABLET PO PRN (16:27)
[2019-01-24 16:28] VITALS: BP 120/85
[2019-01-24] MEDS: IBUPROFEN 400 MG TABLET PO PRN (16:28)
[2019-01-24 16:40] VITALS: BP 108/75
[2019-01-25 05:05] VITALS: BP 112/77
[2019-01-25 08:49] VITALS: BP 115/61
[2019-01-25] MEDS: DOLUTEGRAVIR SODIUM 50 MG TABLET PO SCH (09:00)
[2019-01-25] MEDS: QUEtiapine FUMARATE 200 MG TABLET PO SCH ×2 (09:40→20:16)
[2019-01-25] MEDS: AmLODIPine BESYLATE 5 MG TABLET PO SCH (09:40)
[2019-01-25 16:32] VITALS: BP 108/65
[2019-01-25 20:15] VITALS: BP 112/68
[2019-01-25] MEDS: IBUPROFEN 400 MG TABLET PO PRN (20:17)
[2019-01-26 01:45] VITALS: BP 104/84
[2019-01-26] MEDS: LORazepam 2 MG TABLET PO PRN (01:46)
[2019-01-26 08:37] VITALS: BP 126/70
[2019-01-26] MEDS: QUEtiapine FUMARATE 200 MG TABLET PO SCH ×2 (09:57→20:25)
[2019-01-26] MEDS: AmLODIPine BESYLATE 5 MG TABLET PO SCH (09:58)
[2019-01-26] MEDS: DOLUTEGRAVIR SODIUM 50 MG TABLET PO SCH (09:59)
[2019-01-26 16:45] VITALS: BP 100/60
[2019-01-27 04:03] VITALS: BP 106/72
[2019-01-27 08:00] VITALS: BP 104/62
[2019-01-27] MEDS: AmLODIPine BESYLATE 5 MG TABLET PO SCH (08:42)
[2019-01-27] MEDS: QUEtiapine FUMARATE 200 MG TABLET PO SCH ×2 (08:42→20:36)
[2019-01-27] MEDS: DOLUTEGRAVIR SODIUM 50 MG TABLET PO SCH (08:42)
[2019-01-27] MEDS: LORazepam 2 MG TABLET PO PRN (09:23)
[2019-01-27 21:40] VITALS: BP 119/78
[2019-01-28 01:34] VITALS: BP 108/62
[2019-01-28] MEDS: DOLUTEGRAVIR SODIUM 50 MG TABLET PO SCH ×2 (09:00→09:42)
[2019-01-28] MEDS: QUEtiapine FUMARATE 200 MG TABLET PO SCH ×2 (09:00→09:42)
[2019-01-28] MEDS: AmLODIPine BESYLATE 5 MG TABLET PO SCH ×2 (09:00→09:42)
[2019-01-28 09:08] VITALS: BP 117/70
[2019-01-28] MEDS ORDERED: QUET200T PO (10:02)
[2019-01-28] MEDS ORDERED: QUET200T29 PO (10:07)
[2019-01-28] MEDS: IBUPROFEN 400 MG TABLET PO PRN (10:38)
== END 2019-01-28 13:55 | disposition home or self-care (01) | DRG 750 ==
LOC: B2S 10:55
DX: F25.1 Schizoaffective disorder, depressive type (principal); F15.20 Other stimulant dependence, uncomplicated; R45.851 Suicidal ideations; Z21 Asymptomatic human immunodeficiency virus [HIV] infection status; D64.9 Anemia, unspecified; E87.6 Hypokalemia; F17.200 Nicotine dependence, unspecified, uncomplicated; F25.0 Schizoaffective disorder, bipolar type; G83.14 Monoplegia of lower limb affecting left nondominant side; G89.29 Other chronic pain; I10 Essential (primary) hypertension; J44.9 Chronic obstructive pulmonary disease, unspecified; K21.9 Gastro-esophageal reflux disease without esophagitis; Z59.0 Homelessness; Z79.899 Other long term (current) drug therapy; Z91.14 Patient's other noncompliance with medication regimen; Z91.5 Personal history of self-harm; Z91.81 History of falling; Z88.8 Allergy status to other drugs, medicaments and biological substances
CPT/HCPCS: 83036; 84132; 84439; 84443; 87081; J1200; J1630; J2060

== ENCOUNTER 2019-02-07 21:54 | Emergency (ER) | payer MEDICAID, OTHER ==
[~2019-02-07] VITALS: Ht 170.2 cm; Wt 65.9 kg
[~2019-02-07 21:54] MED LIST changes: -BUPR-47 PO; -BUPR-93 PO
[2019-02-07] MEDS ORDERED: TRAM50TA4 PO (22:57)
[2019-02-07] MEDS ORDERED: LISI1TAB9 PO (22:57)
[2019-02-08 00:27] VITALS: BP 154/89
== END 2019-02-08 00:54 | disposition home or self-care (01) ==
LOC: EMS 21:56
DX: F19.10 Other psychoactive substance abuse, uncomplicated (principal); F41.9 Anxiety disorder, unspecified; F32.9 Major depressive disorder, single episode, unspecified; F20.9 Schizophrenia, unspecified; F17.210 Nicotine dependence, cigarettes, uncomplicated; F19.90 Other psychoactive substance use, unspecified, uncomplicated; F14.90 Cocaine use, unspecified, uncomplicated; Z59.0 Homelessness; Z76.0 Encounter for issue of repeat prescription; Z88.8 Allergy status to other drugs, medicaments and biological substances; Z91.018 Allergy to other foods; Z79.899 Other long term (current) drug therapy

== ENCOUNTER 2019-02-09 23:45 | Emergency (ER) | payer OTHER ==
[~2019-02-09] VITALS: Ht 170.2 cm; Wt 65.9 kg
[~2019-02-09 23:45] MED LIST changes: +LISI1TAB9 PO; +TRAM50TA4 PO
[2019-02-10] MEDS ORDERED: CloNIDine HCL 0.2 MG TABLET PO ONE (01:30)
[2019-02-10] MEDS ORDERED: KETOROLAC TROMETHAMINE 60 MG/2 ML VIAL IM ONE (01:45)
[2019-02-10 01:58] VITALS: BP 126/82
== END 2019-02-10 02:11 | disposition home or self-care (01) ==
LOC: EMS 23:51
DX: I10 Essential (primary) hypertension (principal); M54.2 Cervicalgia; G89.29 Other chronic pain; F41.9 Anxiety disorder, unspecified; F32.9 Major depressive disorder, single episode, unspecified; F20.9 Schizophrenia, unspecified; F17.210 Nicotine dependence, cigarettes, uncomplicated; F19.90 Other psychoactive substance use, unspecified, uncomplicated; F14.90 Cocaine use, unspecified, uncomplicated; F15.90 Other stimulant use, unspecified, uncomplicated; Z59.0 Homelessness; Z88.8 Allergy status to other drugs, medicaments and biological substances; Z91.018 Allergy to other foods; Z79.899 Other long term (current) drug therapy
CPT/HCPCS: 96372; 99283; J1885

== ENCOUNTER 2019-07-01 10:51 | Emergency (ER) | payer OTHER ==
[~2019-07-01] VITALS: Ht 170.2 cm; Wt 73.0 kg
[~2019-07-01 10:51] MED LIST changes: -AMLO-511 PO; +AMLO5TAB9 PO
[2019-07-01 11:54] LABS: BASOPHILS % (AUTO) 0.7 % (0.0-2.0); EOSINOPHILS % (AUTO) 0.7 % (1.0-6.0); HEMATOCRIT 37.3 % (41-53); HEMOGLOBIN 12.9 g/dL (13.5-17.5); LYMPHOCYTES # (AUTO) 1.8 K/uL (1.0-4.8); LYMPHOCYTES % (AUTO) 29.8 % (22.0-44.0); MEAN CORPUSCULAR HEMOGLOBIN 31.4 pg (26.0-34.0); MEAN CORPUSCULAR HGB CONC 34.6 G/dL (31.0-37.0); MEAN CORPUSCULAR VOLUME 91 fL (80-100); MONOCYTES # (AUTO) 0.5 K/uL (0.1-1.0); MONOCYTES % (AUTO) 8.5 % (2.0-9.0); NEUTROPHILS # (AUTO) 3.6 K/uL (1.8-7.7); NEUTROPHILS % (AUTO) 60.3 % (40.0-70.0); PLATELET COUNT (AUTO) 231 K/uL (150-450); RED CELL DISTRIBUTION WIDTH 14.4 % (11.5-14.5)
[2019-07-01 11:55] LABS: ANION GAP 15 mmol/L (8-16); CALCIUM, TOTAL 8.5 mg/dL (8.8-10.5); CARBON DIOXIDE 23 mmol/L (22-29); CHLORIDE 99 mmol/L (98-107); CREATININE 0.79 mg/dL (0.60-1.30); GLOMERULAR FILTR. RATE CALC > 60 mL/min (>60); GLUCOSE,RANDOM 80 mg/dL (70-110); POTASSIUM 3.2 mmol/L (3.5-5.1); SODIUM SERUM 137 mmol/L (136-145); UREA NITROGEN, BLOOD 19 mg/dL (7-18)
[2019-07-01] MEDS ORDERED: AmLODIPine BESYLATE 5 MG TABLET PO ONE (12:30)
[2019-07-01] MEDS ORDERED: LISINOPRIL 10 MG TABLET PO ONE (12:30)
[2019-07-01 13:15] VITALS: BP 155/96
== END 2019-07-01 13:18 | disposition home or self-care (01) ==
LOC: EMS 10:54
DX: I10 Essential (primary) hypertension (principal); F10.10 Alcohol abuse, uncomplicated; F15.10 Other stimulant abuse, uncomplicated; F41.9 Anxiety disorder, unspecified; F32.9 Major depressive disorder, single episode, unspecified; F20.9 Schizophrenia, unspecified; F17.210 Nicotine dependence, cigarettes, uncomplicated; F14.90 Cocaine use, unspecified, uncomplicated; F19.90 Other psychoactive substance use, unspecified, uncomplicated; Z59.0 Homelessness; Z88.8 Allergy status to other drugs, medicaments and biological substances; Z91.018 Allergy to other foods; Y90.1 Blood alcohol level of 20-39 mg/100 ml
CPT/HCPCS: 36415; 71045; 80048; 85025; 93005; 99285; G0480

== ENCOUNTER 2019-07-25 21:59 | Inpatient (IN) | payer MEDICAID ==
[~2019-07-25] VITALS: Ht 170.2 cm; Wt 70.8 kg
[~2019-07-25 21:59] MED LIST changes: -QUET200T29 PO; -TRAM50TA4 PO
[2019-07-26] MEDS ORDERED: INFLUENZA VIRUS VACCINE QVS 2019-20 (3YR+)/PF 60 MCG/0.5 ML SYRINGE IM ONE (00:15)
[2019-07-26 00:30] VITALS: BP 134/96
[2019-07-26] MEDS: HALOPERIDOL 5 MG TABLET PO PRN ×2 (00:37→14:44)
[2019-07-26] MEDS ORDERED: MAGNESIUM HYDROXIDE SUSPENSION 30 ML UDCUP PO PRN (01:45)
[2019-07-26] MEDS ORDERED: GuaiFENesin/D-METHORPHAN [SUGAR-FREE] 200-20MG/10 ML SYRUP UDCUP PO PRN (01:45)
[2019-07-26] MEDS ORDERED: ALBUTEROL SULFATE HFA 90 MCG/PUFF 8 GM INHALER IH PRN (01:45)
[2019-07-26] MEDS ORDERED: ACETAMINOPHEN 325 MG TABLET PO PRN (01:45)
[2019-07-26] MEDS ORDERED: ONDANSETRON HCL 4 MG TABLET PO PRN (01:45)
[2019-07-26] MEDS ORDERED: CloNIDine HCL 0.1 MG TABLET PO PRN (01:45)
[2019-07-26] MEDS ORDERED: DOCUSATE SODIUM 100 MG CAPSULE PO PRN (01:45)
[2019-07-26] MEDS ORDERED: PETROLATUM,WHITE 28 GM JELLY TP PRN (01:45)
[2019-07-26] MEDS ORDERED: MAG HYDROX/AL HYDROX/SIMETH ES 30 ML SUSPENSION UDCUP PO PRN (01:45)
[2019-07-26] MEDS ORDERED: NICOTINE 14 MG/24 HOUR PATCH TD PRN (01:45)
[2019-07-26] MEDS ORDERED: LOPERAMIDE HCL 2 MG CAPSULE PO PRN (01:45)
[2019-07-26] MEDS: IBUPROFEN 400 MG TABLET PO PRN (02:00)
[2019-07-26] MEDS: ZOLPIDEM TARTRATE 10 MG TABLET PO PRN (02:00)
[2019-07-26 07:41] LABS: BASOPHILS % (AUTO) 0.7 % (0.0-2.0); EOSINOPHILS % (AUTO) 2.4 % (1.0-6.0); HEMATOCRIT 35.2 % (41-53); HEMOGLOBIN 12.2 g/dL (13.5-17.5); LYMPHOCYTES # (AUTO) 1.7 K/uL (1.0-4.8); LYMPHOCYTES % (AUTO) 33.7 % (22.0-44.0); MEAN CORPUSCULAR HEMOGLOBIN 32.4 pg (26.0-34.0); MEAN CORPUSCULAR HGB CONC 34.5 G/dL (31.0-37.0); MEAN CORPUSCULAR VOLUME 94 fL (80-100); MONOCYTES # (AUTO) 0.7 K/uL (0.1-1.0); MONOCYTES % (AUTO) 12.8 % (2.0-9.0); NEUTROPHILS # (AUTO) 2.6 K/uL (1.8-7.7); NEUTROPHILS % (AUTO) 50.4 % (40.0-70.0); PLATELET COUNT (AUTO) 241 K/uL (150-450); RED BLOOD CELL COUNT(AUTO) 3.75 MIL/uL (4.50-5.90); RED CELL DISTRIBUTION WIDTH 14.1 % (11.5-14.5)
[2019-07-26 07:53] LABS: HEMOGLOBIN A1C 5.6 % (4.5-6.2)
[2019-07-26 08:05] VITALS: BP 123/80
[2019-07-26 08:08] LABS: ALANINE AMINOTRANSFERASE 33 U/L (12-78); ALBUMIN 3.3 g/dL (3.4-5.0); ALKALINE PHOSPHATASE 73 U/L (46-116); ANION GAP 5 mmol/L (8-16); ASPARTATE AMINOTRANSFERASE 35 U/L (15-37); BILIRUBIN,TOTAL 0.4 mg/dL (0.1-1.0); CALCIUM, TOTAL 8.8 mg/dL (8.8-10.5); CARBON DIOXIDE 31 mmol/L (22-29); CHLORIDE 103 mmol/L (98-107); CHOL/HDL RATIO 2.3 (4.2-7.3); CHOLESTEROL 129 mg/dL (131-200); CREATININE 0.77 mg/dL (0.60-1.30); FREE T4 (FREE THYROXINE) 1.06 ng/dL (0.76-1.46); GLOMERULAR FILTR. RATE CALC > 60 mL/min (>60); GLUCOSE,RANDOM 83 mg/dL (70-110); HDL CHOLESTEROL 56 mg/dL (40-60); LDL CHOL (CALC.) 60 mg/dL (0-130); POTASSIUM 3.2 mmol/L (3.5-5.1); SODIUM SERUM 139 mmol/L (136-145); THYROID STIMULATING HORMONE 3.55 uIU/mL (0.36-3.74); TOTAL PROTEIN, SERUM 6.7 g/dL (6.4-8.2); TRIGLYCERIDES 65 mg/dL (15-150); UREA NITROGEN, BLOOD 21 mg/dL (7-18)
[2019-07-26] MEDS ORDERED: POTASSIUM CHLORIDE 20 MEQ ER TABLET PO ONE (08:30)
[2019-07-26] MEDS: AmLODIPine BESYLATE 5 MG TABLET PO SCH (08:36)
[2019-07-26] MEDS: LISINOPRIL 10 MG TABLET PO SCH (08:36)
[2019-07-26] MEDS: DOLUTEGRAVIR SODIUM 50 MG TABLET PO SCH (09:00)
[2019-07-26] MEDS: LORazepam 2 MG TABLET PO PRN (14:44)
[2019-07-26] MEDS ORDERED: QUEtiapine FUMARATE 100 MG TABLET PO ONE (15:00)
[2019-07-26 16:00] VITALS: BP 128/86
[2019-07-26] MEDS: BuPROPion HCL 150 MG SR TABLET PO SCH (16:48)
[2019-07-26] MEDS ORDERED: *NON-FORMULARY MED [ENTER DRUG, DOSE, FREQ IN COMMENTS] CLINICAL ONE ×2 (18:45→19:15)
[2019-07-26] MEDS: QUEtiapine FUMARATE 200 MG TABLET PO SCH (20:32)
[2019-07-27 06:56] VITALS: BP 122/82
[2019-07-27 08:08] VITALS: BP 138/80
[2019-07-27] MEDS: AmLODIPine BESYLATE 5 MG TABLET PO SCH (08:38)
[2019-07-27] MEDS: QUEtiapine FUMARATE 200 MG TABLET PO SCH ×2 (08:38→20:19)
[2019-07-27] MEDS: [UNRECOGNIZED DRUG - OTHER] PO SCH (08:38)
[2019-07-27] MEDS: DOLUTEGRAVIR SODIUM 50 MG TABLET PO SCH (08:38)
[2019-07-27] MEDS: SOFOSBUVIR PO SCH (08:38)
[2019-07-27] MEDS: VELPATASVIR PO SCH (08:38)
[2019-07-27] MEDS: BuPROPion HCL 150 MG SR TABLET PO SCH ×2 (08:38→16:29)
[2019-07-27] MEDS: LISINOPRIL 10 MG TABLET PO SCH (08:38)
[2019-07-27] MEDS ORDERED: *PATIENT'S OWN MED [ENTER DRUG, DOSE, FREQUENCY IN COMMENTS] CLINICAL ONE (09:00)
[2019-07-27] MEDS: LORazepam 2 MG TABLET PO PRN ×2 (12:59→17:32)
[2019-07-27 16:00] VITALS: BP 124/79
[2019-07-27] MEDS: HALOPERIDOL 5 MG TABLET PO PRN (17:33)
[2019-07-28 03:00] VITALS: BP 131/77
[2019-07-28 08:00] VITALS: BP 110/73
[2019-07-28] MEDS: LISINOPRIL 10 MG TABLET PO SCH (08:09)
[2019-07-28] MEDS: AmLODIPine BESYLATE 5 MG TABLET PO SCH (08:10)
[2019-07-28] MEDS: BuPROPion HCL 150 MG SR TABLET PO SCH ×2 (08:10→16:41)
[2019-07-28] MEDS: QUEtiapine FUMARATE 200 MG TABLET PO SCH ×2 (08:10→20:38)
[2019-07-28] MEDS: [UNRECOGNIZED DRUG - OTHER] PO SCH (08:11)
[2019-07-28] MEDS: SOFOSBUVIR PO SCH (08:11)
[2019-07-28] MEDS: VELPATASVIR PO SCH (08:11)
[2019-07-28] MEDS: TRIUMEQ PO SCH (08:12)
[2019-07-28 16:04] VITALS: BP 135/84
[2019-07-28] MEDS: IBUPROFEN 400 MG TABLET PO PRN (17:34)
[2019-07-28] MEDS: LORazepam 2 MG TABLET PO PRN (17:34)
[2019-07-29 03:00] VITALS: BP 134/86
[2019-07-29 08:13] VITALS: BP 112/60
[2019-07-29] MEDS: LISINOPRIL 10 MG TABLET PO SCH (08:16)
[2019-07-29] MEDS: AmLODIPine BESYLATE 5 MG TABLET PO SCH (08:17)
[2019-07-29] MEDS: QUEtiapine FUMARATE 200 MG TABLET PO SCH ×2 (08:17→19:57)
[2019-07-29] MEDS: BuPROPion HCL 150 MG SR TABLET PO SCH ×2 (08:17→16:51)
[2019-07-29] MEDS: TRIUMEQ PO SCH (08:18)
[2019-07-29] MEDS: SOFOSBUVIR PO SCH (08:19)
[2019-07-29] MEDS: VELPATASVIR PO SCH (08:19)
[2019-07-29] MEDS: [UNRECOGNIZED DRUG - OTHER] PO SCH (08:19)
[2019-07-29 16:00] VITALS: BP 125/70
[2019-07-29] MEDS: LORazepam 2 MG TABLET PO PRN (16:51)
[2019-07-30 08:10] VITALS: BP 130/82
[2019-07-30] MEDS: TRIUMEQ PO SCH (08:12)
[2019-07-30] MEDS: SOFOSBUVIR PO SCH (08:12)
[2019-07-30] MEDS: VELPATASVIR PO SCH (08:12)
[2019-07-30] MEDS: [UNRECOGNIZED DRUG - OTHER] PO SCH (08:12)
[2019-07-30] MEDS: QUEtiapine FUMARATE 200 MG TABLET PO SCH ×2 (08:13→20:31)
[2019-07-30] MEDS: BuPROPion HCL 150 MG SR TABLET PO SCH ×2 (08:13→16:11)
[2019-07-30] MEDS: LISINOPRIL 10 MG TABLET PO SCH (08:13)
[2019-07-30] MEDS: AmLODIPine BESYLATE 5 MG TABLET PO SCH (08:13)
[2019-07-30 16:04] VITALS: BP 116/67
[2019-07-30] MEDS: LORazepam 2 MG TABLET PO PRN (19:37)
[2019-07-30] MEDS: HALOPERIDOL 5 MG TABLET PO PRN (19:37)
[2019-07-30 19:40] VITALS: BP 125/78
[2019-07-30] MEDS: IBUPROFEN 400 MG TABLET PO PRN (19:40)
[2019-07-31 08:14] VITALS: BP 126/77
[2019-07-31] MEDS: LISINOPRIL 10 MG TABLET PO SCH (08:22)
[2019-07-31] MEDS: QUEtiapine FUMARATE 200 MG TABLET PO SCH ×2 (08:22→20:22)
[2019-07-31] MEDS: BuPROPion HCL 150 MG SR TABLET PO SCH ×2 (08:22→16:08)
[2019-07-31] MEDS: AmLODIPine BESYLATE 5 MG TABLET PO SCH (08:22)
[2019-07-31] MEDS: SOFOSBUVIR PO SCH (08:23)
[2019-07-31] MEDS: VELPATASVIR PO SCH (08:23)
[2019-07-31] MEDS: [UNRECOGNIZED DRUG - OTHER] PO SCH (08:23)
[2019-07-31] MEDS: TRIUMEQ PO SCH (08:25)
[2019-07-31 18:40] VITALS: BP 109/60
[2019-07-31] MEDS: ZOLPIDEM TARTRATE 10 MG TABLET PO PRN (22:22)
[2019-07-31 22:23] VITALS: BP 124/72
[2019-07-31] MEDS: IBUPROFEN 400 MG TABLET PO PRN (22:23)
[2019-08-01 00:15] VITALS: BP 129/75
[2019-08-01 08:30] VITALS: BP 141/79
[2019-08-01] MEDS: AmLODIPine BESYLATE 5 MG TABLET PO SCH (09:28)
[2019-08-01] MEDS: LISINOPRIL 10 MG TABLET PO SCH (09:29)
[2019-08-01] MEDS: BuPROPion HCL 150 MG SR TABLET PO SCH ×2 (09:29→16:05)
[2019-08-01] MEDS: QUEtiapine FUMARATE 200 MG TABLET PO SCH ×2 (09:29→20:18)
[2019-08-01] MEDS: VELPATASVIR PO SCH (09:30)
[2019-08-01] MEDS: [UNRECOGNIZED DRUG - OTHER] PO SCH (09:30)
[2019-08-01] MEDS: SOFOSBUVIR PO SCH (09:30)
[2019-08-01] MEDS: TRIUMEQ PO SCH (09:31)
[2019-08-01 16:00] VITALS: BP 108/66
[2019-08-01] MEDS: ZOLPIDEM TARTRATE 10 MG TABLET PO PRN (22:21)
[2019-08-02] MEDS: LISINOPRIL 10 MG TABLET PO SCH (08:26)
[2019-08-02] MEDS: BuPROPion HCL 150 MG SR TABLET PO SCH ×2 (08:26→16:53)
[2019-08-02] MEDS: QUEtiapine FUMARATE 200 MG TABLET PO SCH ×2 (08:27→20:18)
[2019-08-02] MEDS: AmLODIPine BESYLATE 5 MG TABLET PO SCH (08:27)
[2019-08-02] MEDS: [UNRECOGNIZED DRUG - OTHER] PO SCH (08:28)
[2019-08-02] MEDS: VELPATASVIR PO SCH (08:28)
[2019-08-02] MEDS: SOFOSBUVIR PO SCH (08:28)
[2019-08-02] MEDS: TRIUMEQ PO SCH (08:29)
[2019-08-02 08:49] VITALS: BP 102/62
[2019-08-02 16:00] VITALS: BP 130/76
[2019-08-02] MEDS: LORazepam 2 MG TABLET PO PRN (20:18)
[2019-08-02] MEDS: ZOLPIDEM TARTRATE 10 MG TABLET PO PRN (21:58)
[2019-08-03 08:09] VITALS: BP 119/77
[2019-08-03] MEDS: LISINOPRIL 10 MG TABLET PO SCH (09:01)
[2019-08-03] MEDS: QUEtiapine FUMARATE 200 MG TABLET PO SCH (09:01)
[2019-08-03] MEDS: BuPROPion HCL 150 MG SR TABLET PO SCH ×2 (09:01→16:14)
[2019-08-03] MEDS: SOFOSBUVIR PO SCH (09:03)
[2019-08-03] MEDS: [UNRECOGNIZED DRUG - OTHER] PO SCH (09:03)
[2019-08-03] MEDS: VELPATASVIR PO SCH (09:03)
[2019-08-03] MEDS: TRIUMEQ PO SCH (09:04)
[2019-08-03] MEDS: AmLODIPine BESYLATE 5 MG TABLET PO SCH (09:05)
[2019-08-03] MEDS: IBUPROFEN 400 MG TABLET PO PRN (16:14)
[2019-08-03] MEDS: LORazepam 2 MG TABLET PO PRN (16:14)
[2019-08-03 16:15] VITALS: BP 123/65
[2019-08-03] MEDS: QUEtiapine FUMARATE 300 MG TABLET PO SCH (20:48)
[2019-08-03] MEDS: ZOLPIDEM TARTRATE 10 MG TABLET PO PRN (20:48)
[2019-08-04 03:18] VITALS: BP 134/74
[2019-08-04] MEDS: BuPROPion HCL 150 MG SR TABLET PO SCH ×2 (08:31→16:12)
[2019-08-04] MEDS: QUEtiapine FUMARATE 100 MG TABLET PO SCH (08:31)
[2019-08-04] MEDS: [UNRECOGNIZED DRUG - OTHER] PO SCH (08:32)
[2019-08-04] MEDS: SOFOSBUVIR PO SCH (08:32)
[2019-08-04] MEDS: AmLODIPine BESYLATE 5 MG TABLET PO SCH (08:32)
[2019-08-04] MEDS: VELPATASVIR PO SCH (08:32)
[2019-08-04] MEDS: LISINOPRIL 10 MG TABLET PO SCH (08:32)
[2019-08-04] MEDS: TRIUMEQ PO SCH (10:31)
[2019-08-04] MEDS: IBUPROFEN 400 MG TABLET PO PRN (16:12)
[2019-08-04] MEDS: LORazepam 2 MG TABLET PO PRN (16:12)
[2019-08-04 16:13] VITALS: BP 112/67
[2019-08-04] MEDS: QUEtiapine FUMARATE 300 MG TABLET PO SCH (20:48)
[2019-08-04] MEDS: ZOLPIDEM TARTRATE 10 MG TABLET PO PRN (20:48)
[2019-08-04] MEDS ORDERED: QUEtiapine FUMARATE 300 MG TABLET PO SCH (21:00)
[2019-08-05 06:42] VITALS: BP 26/84
[2019-08-05] MEDS: AmLODIPine BESYLATE 5 MG TABLET PO SCH (08:30)
[2019-08-05] MEDS: BuPROPion HCL 150 MG SR TABLET PO SCH ×2 (08:30→16:10)
[2019-08-05] MEDS: TRIUMEQ PO SCH (08:31)
[2019-08-05] MEDS: VELPATASVIR PO SCH (08:31)
[2019-08-05] MEDS: [UNRECOGNIZED DRUG - OTHER] PO SCH (08:31)
[2019-08-05] MEDS: QUEtiapine FUMARATE 100 MG TABLET PO SCH (08:31)
[2019-08-05] MEDS: LISINOPRIL 10 MG TABLET PO SCH (08:31)
[2019-08-05] MEDS: SOFOSBUVIR PO SCH (08:31)
[2019-08-05 09:53] VITALS: BP 116/67
[2019-08-05 16:00] VITALS: BP 114/84
[2019-08-05] MEDS: QUEtiapine FUMARATE 300 MG TABLET PO SCH (20:11)
[2019-08-06 07:04] VITALS: BP 118/82
[2019-08-06 08:00] VITALS: BP 108/61
[2019-08-06] MEDS: SOFOSBUVIR PO SCH (08:32)
[2019-08-06] MEDS: BuPROPion HCL 150 MG SR TABLET PO SCH ×2 (08:32→16:07)
[2019-08-06] MEDS: AmLODIPine BESYLATE 5 MG TABLET PO SCH (08:32)
[2019-08-06] MEDS: [UNRECOGNIZED DRUG - OTHER] PO SCH (08:32)
[2019-08-06] MEDS: TRIUMEQ PO SCH (08:32)
[2019-08-06] MEDS: VELPATASVIR PO SCH (08:32)
[2019-08-06] MEDS: LISINOPRIL 10 MG TABLET PO SCH (08:32)
[2019-08-06] MEDS: QUEtiapine FUMARATE 100 MG TABLET PO SCH (08:32)
[2019-08-06 16:00] VITALS: BP 113/76
[2019-08-06] MEDS: LORazepam 2 MG TABLET PO PRN (16:07)
[2019-08-06] MEDS: QUEtiapine FUMARATE 300 MG TABLET PO SCH (20:39)
[2019-08-07 06:45] VITALS: BP 117/81
[2019-08-07 08:30] VITALS: BP 105/69
[2019-08-07] MEDS: BuPROPion HCL 150 MG SR TABLET PO SCH ×2 (08:46→16:20)
[2019-08-07] MEDS: TRIUMEQ PO SCH (08:46)
[2019-08-07] MEDS: LISINOPRIL 10 MG TABLET PO SCH (08:46)
[2019-08-07] MEDS: AmLODIPine BESYLATE 5 MG TABLET PO SCH (08:46)
[2019-08-07] MEDS: QUEtiapine FUMARATE 100 MG TABLET PO SCH (08:46)
[2019-08-07] MEDS: [UNRECOGNIZED DRUG - OTHER] PO SCH (08:46)
[2019-08-07] MEDS: VELPATASVIR PO SCH (08:46)
[2019-08-07] MEDS: SOFOSBUVIR PO SCH (08:46)
[2019-08-07 16:05] VITALS: BP 113/69
[2019-08-07] MEDS: LORazepam 2 MG TABLET PO PRN (16:21)
[2019-08-07] MEDS: QUEtiapine FUMARATE 300 MG TABLET PO SCH (21:05)
[2019-08-07] MEDS: ZOLPIDEM TARTRATE 10 MG TABLET PO PRN (22:24)
[2019-08-08 05:49] VITALS: BP 123/76
[2019-08-08 08:55] VITALS: BP 118/71
[2019-08-08] MEDS: SOFOSBUVIR PO SCH (09:03)
[2019-08-08] MEDS: BuPROPion HCL 150 MG SR TABLET PO SCH (09:03)
[2019-08-08] MEDS: VELPATASVIR PO SCH (09:03)
[2019-08-08] MEDS: [UNRECOGNIZED DRUG - OTHER] PO SCH (09:03)
[2019-08-08] MEDS: TRIUMEQ PO SCH (09:03)
[2019-08-08] MEDS: QUEtiapine FUMARATE 100 MG TABLET PO SCH (09:04)
[2019-08-08] MEDS: LISINOPRIL 10 MG TABLET PO SCH (09:04)
[2019-08-08] MEDS: AmLODIPine BESYLATE 5 MG TABLET PO SCH (09:04)
[2019-08-08] MEDS ORDERED: LISI-661 PO (11:56)
[2019-08-08] MEDS ORDERED: BUPR150SR PO (11:56)
[2019-08-08] MEDS ORDERED: QUET100T PO (11:58)
[2019-08-08] MEDS ORDERED: QUET200T PO (11:58)
[2019-08-08] MEDS ORDERED: SOFO1TAB2 PO (12:00)
== END 2019-08-08 12:45 | disposition home or self-care (01) | DRG 750 ==
LOC: B3A 23:14
PROVIDERS: ADMIT Psychiatry & Neurology Child & Adolescent Psychiatry; ATTEND Psychiatry & Neurology Child & Adolescent Psychiatry
DX: F25.0 Schizoaffective disorder, bipolar type (principal); Z59.0 Homelessness; D64.9 Anemia, unspecified; E87.6 Hypokalemia; F10.10 Alcohol abuse, uncomplicated; F17.200 Nicotine dependence, unspecified, uncomplicated; G89.29 Other chronic pain; I10 Essential (primary) hypertension; J44.9 Chronic obstructive pulmonary disease, unspecified; F41.9 Anxiety disorder, unspecified; K21.9 Gastro-esophageal reflux disease without esophagitis; R41.843 Psychomotor deficit; M54.9 Dorsalgia, unspecified; F19.10 Other psychoactive substance abuse, uncomplicated; Z71.89 Other specified counseling; Z91.19 Patient's noncompliance with other medical treatment and regimen; Z71.41 Alcohol abuse counseling and surveillance of alcoholic; Z71.6 Tobacco abuse counseling; Z79.899 Other long term (current) drug therapy; Z88.8 Allergy status to other drugs, medicaments and biological substances; Z91.018 Allergy to other foods; Z28.21 Immunization not carried out because of patient refusal
CPT/HCPCS: 83036; 84132; 84439; 84443

== ENCOUNTER 2019-10-16 00:01 | Inpatient (IN) | payer MEDICAID ==
[~2019-10-16 00:01] MED LIST changes: +BUPR150SR PO; -DOLU50TA PO; -LAMI300T PO; +LISI-661 PO; -LISI1TAB9 PO; +QUET100T PO; +SOFO1TAB2 PO
[2019-10-16] MEDS ORDERED: HALOPERIDOL 5 MG TABLET PO PRN (00:15)
[2019-10-16 13:45] VITALS: BP 128/86
[2019-10-16] MEDS ORDERED: NICOTINE 14 MG/24 HOUR PATCH TD PRN (15:45)
[2019-10-16] MEDS ORDERED: GuaiFENesin/D-METHORPHAN [SUGAR-FREE] 200-20MG/10 ML SYRUP UDCUP PO PRN (15:45)
[2019-10-16] MEDS ORDERED: ALBUTEROL SULFATE HFA 90 MCG/PUFF 8 GM INHALER IH PRN (15:45)
[2019-10-16] MEDS ORDERED: MAGNESIUM HYDROXIDE SUSPENSION 30 ML UDCUP PO PRN (15:45)
[2019-10-16] MEDS ORDERED: DOCUSATE SODIUM 100 MG CAPSULE PO PRN (15:45)
[2019-10-16] MEDS ORDERED: PETROLATUM,WHITE 28 GM JELLY TP PRN (15:45)
[2019-10-16] MEDS ORDERED: ACETAMINOPHEN 325 MG TABLET PO PRN (15:45)
[2019-10-16] MEDS ORDERED: LOPERAMIDE HCL 2 MG CAPSULE PO PRN (15:45)
[2019-10-16] MEDS ORDERED: CloNIDine HCL 0.1 MG TABLET PO PRN (15:45)
[2019-10-16] MEDS ORDERED: MAG HYDROX/AL HYDROX/SIMETH ES 30 ML SUSPENSION UDCUP PO PRN (15:45)
[2019-10-16] MEDS ORDERED: ONDANSETRON HCL 4 MG TABLET PO PRN (15:45)
[2019-10-16 16:07] VITALS: BP 126/72
[2019-10-16] MEDS: BuPROPion HCL 150 MG SR TABLET PO SCH (16:55)
[2019-10-16 20:00] VITALS: BP 136/77
[2019-10-16] MEDS: IBUPROFEN 400 MG TABLET PO PRN (20:12)
[2019-10-16] MEDS: LORazepam 2 MG TABLET PO PRN (20:12)
[2019-10-16] MEDS: QUEtiapine FUMARATE 300 MG TABLET PO SCH (20:12)
[2019-10-17 06:41] VITALS: BP_SYST 116; BP_SYST 126; BP_DIAS 72
[2019-10-17 07:37] LABS: BASOPHILS % (AUTO) 0.7 % (0.0-2.0); EOSINOPHILS % (AUTO) 5.4 % (1.0-6.0); HEMATOCRIT 41.1 % (41-53); HEMOGLOBIN 14.4 g/dL (13.5-17.5); LYMPHOCYTES # (AUTO) 1.5 K/uL (1.0-4.8); LYMPHOCYTES % (AUTO) 27.2 % (22.0-44.0); MEAN CORPUSCULAR HEMOGLOBIN 32.3 pg (26.0-34.0); MEAN CORPUSCULAR HGB CONC 35.1 G/dL (31.0-37.0); MEAN CORPUSCULAR VOLUME 92 fL (80-100); MONOCYTES # (AUTO) 0.5 K/uL (0.1-1.0); MONOCYTES % (AUTO) 8.9 % (2.0-9.0); NEUTROPHILS # (AUTO) 3.1 K/uL (1.8-7.7); NEUTROPHILS % (AUTO) 57.8 % (40.0-70.0); PLATELET COUNT (AUTO) 207 K/uL (150-450); RED BLOOD CELL COUNT(AUTO) 4.46 MIL/uL (4.50-5.90); RED CELL DISTRIBUTION WIDTH 12.8 % (11.5-14.5)
[2019-10-17 07:57] LABS: ALANINE AMINOTRANSFERASE 101 U/L (12-78); ALBUMIN 3.3 g/dL (3.4-5.0); ALKALINE PHOSPHATASE 81 U/L (46-116); ANION GAP 7 mmol/L (8-16); ASPARTATE AMINOTRANSFERASE 147 U/L (15-37); BILIRUBIN,TOTAL 0.9 mg/dL (0.1-1.0); CALCIUM, TOTAL 9.1 mg/dL (8.8-10.5); CARBON DIOXIDE 30 mmol/L (22-29); CHLORIDE 98 mmol/L (98-107); CREATININE 0.77 mg/dL (0.60-1.30); GLOMERULAR FILTR. RATE CALC > 60 mL/min (>60); GLUCOSE,RANDOM 77 mg/dL (70-110); SODIUM SERUM 135 mmol/L (136-145); TOTAL PROTEIN, SERUM 7.1 g/dL (6.4-8.2); UREA NITROGEN, BLOOD 25 mg/dL (7-18)
[2019-10-17 08:07] LABS: POTASSIUM 2.8 mmol/L (3.5-5.1)
[2019-10-17 08:13] VITALS: BP 110/77
[2019-10-17] MEDS ORDERED: POTASSIUM CHLORIDE 20 MEQ ER TABLET PO ONE (08:15)
[2019-10-17] MEDS: LISINOPRIL 10 MG TABLET PO SCH (08:47)
[2019-10-17] MEDS: AmLODIPine BESYLATE 10 MG TABLET PO SCH (08:47)
[2019-10-17] MEDS: BuPROPion HCL 150 MG SR TABLET PO SCH (08:47)
[2019-10-17] MEDS: QUEtiapine FUMARATE 100 MG TABLET PO SCH (08:47)
[2019-10-17] MEDS: *NON-FORMULARY MED [ENTER DRUG, DOSE, FREQ IN COMMENTS] CLINICAL SCH (09:00)
[2019-10-17] MEDS ORDERED: VOSEVI PO SCH (09:00)
[2019-10-17 16:01] VITALS: BP 121/65
[2019-10-17 16:10] VITALS: BP 84/37
[2019-10-17] MEDS: QUEtiapine FUMARATE 300 MG TABLET PO SCH (22:36)
[2019-10-18] MEDS: ZOLPIDEM TARTRATE 10 MG TABLET PO PRN (00:37)
[2019-10-18 00:43] VITALS: BP 104/70
[2019-10-18 08:28] VITALS: BP 106/64
[2019-10-18] MEDS: *NON-FORMULARY MED [ENTER DRUG, DOSE, FREQ IN COMMENTS] CLINICAL SCH (09:00)
[2019-10-18] MEDS: QUEtiapine FUMARATE 100 MG TABLET PO SCH (09:18)
[2019-10-18] MEDS: AmLODIPine BESYLATE 10 MG TABLET PO SCH (09:18)
[2019-10-18] MEDS: LISINOPRIL 10 MG TABLET PO SCH (09:18)
[2019-10-18] MEDS: BuPROPion HCL XL 150 MG ER TABLET PO SCH (09:18)
[2019-10-18] MEDS: IBUPROFEN 400 MG TABLET PO PRN (15:11)
[2019-10-18] MEDS: LORazepam 2 MG TABLET PO PRN ×2 (15:11→22:28)
[2019-10-18 15:15] VITALS: BP 114/67
[2019-10-18 16:20] VITALS: BP 114/63
[2019-10-18] MEDS: QUEtiapine FUMARATE 300 MG TABLET PO SCH (20:23)
[2019-10-19 06:41] VITALS: BP 145/93
[2019-10-19 08:15] VITALS: BP 119/72
[2019-10-19] MEDS: AmLODIPine BESYLATE 10 MG TABLET PO SCH (08:56)
[2019-10-19] MEDS: LISINOPRIL 10 MG TABLET PO SCH (08:56)
[2019-10-19] MEDS: BuPROPion HCL XL 150 MG ER TABLET PO SCH (08:56)
[2019-10-19] MEDS: QUEtiapine FUMARATE 100 MG TABLET PO SCH (08:56)
[2019-10-19] MEDS: *NON-FORMULARY MED [ENTER DRUG, DOSE, FREQ IN COMMENTS] CLINICAL SCH (09:00)
[2019-10-19 16:18] VITALS: BP 108/64
[2019-10-19] MEDS: QUEtiapine FUMARATE 300 MG TABLET PO SCH (20:50)
[2019-10-20 06:02] VITALS: BP 109/69
[2019-10-20 08:44] VITALS: BP 111/68
[2019-10-20] MEDS: LISINOPRIL 10 MG TABLET PO SCH (09:22)
[2019-10-20] MEDS: QUEtiapine FUMARATE 100 MG TABLET PO SCH (09:22)
[2019-10-20] MEDS: AmLODIPine BESYLATE 10 MG TABLET PO SCH (09:23)
[2019-10-20] MEDS: BuPROPion HCL XL 150 MG ER TABLET PO SCH (09:23)
[2019-10-20 11:24] LABS: GLUCOMETER DEV NAME(LOC) BV3S.; GLUCOSE,POINT OF CARE 114 MG/DL (70-110)
[2019-10-20 16:55] VITALS: BP 111/65
[2019-10-20] MEDS: QUEtiapine FUMARATE 300 MG TABLET PO SCH (21:00)
[2019-10-20] MEDS: LORazepam 2 MG TABLET PO PRN (22:29)
[2019-10-21 06:27] VITALS: BP 108/71
[2019-10-21] MEDS: BuPROPion HCL 150 MG SR TABLET PO SCH (08:32)
[2019-10-21] MEDS: QUEtiapine FUMARATE 100 MG TABLET PO SCH (08:32)
[2019-10-21] MEDS: LISINOPRIL 10 MG TABLET PO SCH (08:32)
[2019-10-21] MEDS: AmLODIPine BESYLATE 10 MG TABLET PO SCH (08:33)
[2019-10-21 08:53] VITALS: BP 113/62
[2019-10-21 17:52] VITALS: BP 122/79
[2019-10-21] MEDS: LORazepam 2 MG TABLET PO PRN (21:22)
[2019-10-21] MEDS: QUEtiapine FUMARATE 300 MG TABLET PO SCH (21:22)
[2019-10-22 06:52] VITALS: BP 109/64
[2019-10-22 09:00] VITALS: BP 102/65
[2019-10-22] MEDS: *NON-FORMULARY MED [ENTER DRUG, DOSE, FREQ IN COMMENTS] CLINICAL SCH (09:00)
[2019-10-22] MEDS: AmLODIPine BESYLATE 10 MG TABLET PO SCH (09:03)
[2019-10-22] MEDS: BuPROPion HCL 150 MG SR TABLET PO SCH (09:03)
[2019-10-22] MEDS: LISINOPRIL 10 MG TABLET PO SCH (09:03)
[2019-10-22] MEDS: QUEtiapine FUMARATE 100 MG TABLET PO SCH (09:03)
[2019-10-22 16:11] VITALS: BP 111/64
[2019-10-22] MEDS: QUEtiapine FUMARATE 300 MG TABLET PO SCH (21:38)
[2019-10-23] VITALS: BP 117/76
[2019-10-23] MEDS: ZOLPIDEM TARTRATE 10 MG TABLET PO PRN (00:12)
[2019-10-23 08:19] VITALS: BP 111/77
[2019-10-23] MEDS: QUEtiapine FUMARATE 100 MG TABLET PO SCH (08:45)
[2019-10-23] MEDS: LISINOPRIL 10 MG TABLET PO SCH (08:45)
[2019-10-23] MEDS: BuPROPion HCL 150 MG SR TABLET PO SCH (08:45)
[2019-10-23] MEDS: AmLODIPine BESYLATE 10 MG TABLET PO SCH (08:45)
[2019-10-23 16:51] VITALS: BP 134/78
[2019-10-23] MEDS: LORazepam 2 MG TABLET PO PRN (20:53)
[2019-10-23] MEDS: QUEtiapine FUMARATE 300 MG TABLET PO SCH (20:53)
[2019-10-24 06:38] VITALS: BP 105/66
[2019-10-24 08:23] VITALS: BP 106/62
[2019-10-24] MEDS: LISINOPRIL 10 MG TABLET PO SCH (10:49)
[2019-10-24] MEDS: QUEtiapine FUMARATE 100 MG TABLET PO SCH (10:50)
[2019-10-24] MEDS: AmLODIPine BESYLATE 10 MG TABLET PO SCH (10:50)
[2019-10-24] MEDS: BuPROPion HCL 150 MG SR TABLET PO SCH (10:50)
[2019-10-24] MEDS ORDERED: AMLO10TA7 PO (11:10)
[2019-10-24] MEDS ORDERED: LISI-658 PO (11:10)
[2019-10-24 16:17] VITALS: BP 126/76
[2019-10-24] MEDS: QUEtiapine FUMARATE 300 MG TABLET PO SCH (22:02)
[2019-10-25 05:33] VITALS: BP 100/59
[2019-10-25 08:20] VITALS: BP 100/60
[2019-10-25] MEDS: BuPROPion HCL 150 MG SR TABLET PO SCH (09:26)
[2019-10-25] MEDS: AmLODIPine BESYLATE 10 MG TABLET PO SCH (09:26)
[2019-10-25] MEDS: LISINOPRIL 10 MG TABLET PO SCH (09:27)
[2019-10-25] MEDS: QUEtiapine FUMARATE 100 MG TABLET PO SCH (09:27)
[2019-10-25 17:05] VITALS: BP 137/97
[2019-10-25 17:28] VITALS: BP 138/78
[2019-10-25] MEDS: QUEtiapine FUMARATE 300 MG TABLET PO SCH (20:44)
[2019-10-25] MEDS: LORazepam 2 MG TABLET PO PRN (20:44)
[2019-10-26 06:16] VITALS: BP 124/80
[2019-10-26 08:15] VITALS: BP 113/74
[2019-10-26] MEDS: BuPROPion HCL 150 MG SR TABLET PO SCH (09:30)
[2019-10-26] MEDS: QUEtiapine FUMARATE 100 MG TABLET PO SCH (09:31)
[2019-10-26] MEDS: AmLODIPine BESYLATE 10 MG TABLET PO SCH (09:31)
[2019-10-26] MEDS: LISINOPRIL 10 MG TABLET PO SCH (09:33)
[2019-10-26 16:09] VITALS: BP 110/64
[2019-10-26] MEDS: QUEtiapine FUMARATE 300 MG TABLET PO SCH (20:32)
[2019-10-27 06:47] VITALS: BP 102/62
[2019-10-27 08:19] VITALS: BP 105/60
[2019-10-27] MEDS: LISINOPRIL 10 MG TABLET PO SCH (09:00)
[2019-10-27] MEDS: AmLODIPine BESYLATE 10 MG TABLET PO SCH (09:00)
[2019-10-27] MEDS: QUEtiapine FUMARATE 100 MG TABLET PO SCH (09:02)
[2019-10-27] MEDS: BuPROPion HCL 150 MG SR TABLET PO SCH (09:02)
[2019-10-27 18:05] VITALS: BP 113/74
[2019-10-27] MEDS: ZOLPIDEM TARTRATE 10 MG TABLET PO PRN (20:43)
[2019-10-27] MEDS: QUEtiapine FUMARATE 300 MG TABLET PO SCH (20:43)
[2019-10-28 05:30] VITALS: BP 108/68
[2019-10-28] MEDS ORDERED: BUPR150T8 PO (08:12)
[2019-10-28] MEDS ORDERED: LISI10TA7 PO (08:12)
[2019-10-28] MEDS: BuPROPion HCL 150 MG SR TABLET PO SCH (08:49)
[2019-10-28] MEDS: AmLODIPine BESYLATE 10 MG TABLET PO SCH (08:49)
[2019-10-28] MEDS: LISINOPRIL 10 MG TABLET PO SCH (08:49)
[2019-10-28] MEDS: QUEtiapine FUMARATE 100 MG TABLET PO SCH (08:49)
[2019-10-28] MEDS ORDERED: IBUP-2070 PO (18:27)
[2019-10-28] MEDS ORDERED: HYDR-1475 PO (18:27)
== END 2019-10-28 11:30 | disposition home or self-care (01) | DRG 750 ==
LOC: B3A 01:08
PROVIDERS: ADMIT Psychiatry & Neurology Psychiatry; ATTEND Psychiatry & Neurology Child & Adolescent Psychiatry
DX: F20.0 Paranoid schizophrenia (principal); R45.851 Suicidal ideations; Z21 Asymptomatic human immunodeficiency virus [HIV] infection status; I10 Essential (primary) hypertension; K21.9 Gastro-esophageal reflux disease without esophagitis; J44.9 Chronic obstructive pulmonary disease, unspecified; F41.9 Anxiety disorder, unspecified; M54.9 Dorsalgia, unspecified; F19.90 Other psychoactive substance use, unspecified, uncomplicated; B18.2 Chronic viral hepatitis C; E87.6 Hypokalemia; B19.20 Unspecified viral hepatitis C without hepatic coma; G83.14 Monoplegia of lower limb affecting left nondominant side; D64.9 Anemia, unspecified; F15.90 Other stimulant use, unspecified, uncomplicated; F12.90 Cannabis use, unspecified, uncomplicated; Z59.0 Homelessness; Z98.890 Other specified postprocedural states; Z72.0 Tobacco use; Z72.89 Other problems related to lifestyle; Z88.8 Allergy status to other drugs, medicaments and biological substances
CPT/HCPCS: 84132; 87081

== ENCOUNTER 2019-10-16 01:27 | Emergency (ER) | payer MEDICAID, OTHER ==
[~2019-10-16] VITALS: Ht 170.2 cm; Wt 77.3 kg
[2019-10-16] MEDS ORDERED: LORazepam 1 MG TABLET PO ONE (02:45)
[2019-10-16 03:10] LABS: BASOPHILS % (AUTO) 0.6 % (0.0-2.0); EOSINOPHILS % (AUTO) 0.5 % (1.0-6.0); HEMATOCRIT 39.9 % (41-53); LYMPHOCYTES # (AUTO) 2.4 K/uL (1.0-4.8); LYMPHOCYTES % (AUTO) 19.7 % (22.0-44.0); MEAN CORPUSCULAR HEMOGLOBIN 32.3 pg (26.0-34.0); MEAN CORPUSCULAR HGB CONC 35.1 G/dL (31.0-37.0); MEAN CORPUSCULAR VOLUME 92 fL (80-100); MONOCYTES # (AUTO) 1.3 K/uL (0.1-1.0); MONOCYTES % (AUTO) 11.2 % (2.0-9.0); NEUTROPHILS # (AUTO) 8.2 K/uL (1.8-7.7); PLATELET COUNT (AUTO) 235 K/uL (150-450); RED BLOOD CELL COUNT(AUTO) 4.34 MIL/uL (4.50-5.90); RED CELL DISTRIBUTION WIDTH 12.8 % (11.5-14.5)
[2019-10-16 03:20] LABS: ANION GAP 14 mmol/L (8-16); CALCIUM, TOTAL 8.8 mg/dL (8.8-10.5); CARBON DIOXIDE 26 mmol/L (22-29); CHLORIDE 99 mmol/L (98-107); CREATININE 0.92 mg/dL (0.60-1.30); GLOMERULAR FILTR. RATE CALC > 60 mL/min (>60); GLUCOSE,RANDOM 107 mg/dL (70-110); SODIUM SERUM 139 mmol/L (136-145); UREA NITROGEN, BLOOD 27 mg/dL (7-18)
[2019-10-16 03:26] LABS: ALANINE AMINOTRANSFERASE 133 U/L (12-78); ALBUMIN 4.2 g/dL (3.4-5.0); ALKALINE PHOSPHATASE 83 U/L (46-116); ASPARTATE AMINOTRANSFERASE 271 U/L (15-37); BILIRUBIN,TOTAL 1.1 mg/dL (0.1-1.0); TOTAL PROTEIN, SERUM 7.9 g/dL (6.4-8.2)
[2019-10-16 05:31] LABS: AMPHET/METH SCREEN,URINE POSITIVE (NEGATIVE); BARBITURATE SCREEN, URINE NEGATIVE (NEGATIVE); BENZODIAZEPINES SCREEN,URINE NEGATIVE (NEGATIVE); CANNABINOID SCREEN,URINE NEGATIVE (NEGATIVE); COCAINE SCREEN,URINE NEGATIVE (NEGATIVE); METHADONE SCREEN, URINE NEGATIVE (NEGATIVE); OPIATE SCREEN,URINE POSITIVE (NEGATIVE)
[2019-10-16 05:32] LABS: PHENCYCLIDINE SCREEN,URINE NEGATIVE (NEGATIVE)
[2019-10-16] MEDS ORDERED: POTASSIUM CHLORIDE 10% 40 MEQ/30 ML LIQUID UDCUP PO ONE (05:45)
[2019-10-16] MEDS ORDERED: HALOPERIDOL LACTATE 5 MG/ML VIAL IM ONE (06:00)
[2019-10-16 11:10] VITALS: BP 128/84
== END 2019-10-16 11:17 | disposition other institution (70) ==
LOC: EMS 01:29
DX: R45.851 Suicidal ideations (principal); R17 Unspecified jaundice; F15.10 Other stimulant abuse, uncomplicated; F41.9 Anxiety disorder, unspecified; F32.9 Major depressive disorder, single episode, unspecified; F20.9 Schizophrenia, unspecified; F17.210 Nicotine dependence, cigarettes, uncomplicated; F14.90 Cocaine use, unspecified, uncomplicated; F19.90 Other psychoactive substance use, unspecified, uncomplicated; Z59.0 Homelessness; Z88.8 Allergy status to other drugs, medicaments and biological substances; Z91.018 Allergy to other foods
CPT/HCPCS: 36415; 76705; 80053; 80307; 85025; 93005; 96372; 99285; G0480; J1630

== ENCOUNTER 2019-10-17 17:35 | Emergency (ER) | payer OTHER ==
[~2019-10-17] VITALS: Ht 167.6 cm; Wt 72.7 kg
[2019-10-17 18:20] LABS: BASOPHILS % (AUTO) 0.4 % (0.0-2.0); EOSINOPHILS % (AUTO) 2.1 % (1.0-6.0); HEMATOCRIT 38.2 % (41-53); HEMOGLOBIN 13.3 g/dL (13.5-17.5); MEAN CORPUSCULAR HEMOGLOBIN 32.5 pg (26.0-34.0); MEAN CORPUSCULAR HGB CONC 34.8 G/dL (31.0-37.0); MEAN CORPUSCULAR VOLUME 93 fL (80-100); MONOCYTES # (AUTO) 0.6 K/uL (0.1-1.0); NEUTROPHILS # (AUTO) 4.7 K/uL (1.8-7.7); NEUTROPHILS % (AUTO) 72.5 % (40.0-70.0); PLATELET COUNT (AUTO) 214 K/uL (150-450); RED BLOOD CELL COUNT(AUTO) 4.09 MIL/uL (4.50-5.90); RED CELL DISTRIBUTION WIDTH 12.7 % (11.5-14.5)
[2019-10-17 18:32] LABS: ANION GAP 6 mmol/L (8-16); CALCIUM, TOTAL 8.4 mg/dL (8.8-10.5); CARBON DIOXIDE 29 mmol/L (22-29); CHLORIDE 101 mmol/L (98-107); CREATININE 0.82 mg/dL (0.60-1.30); GLOMERULAR FILTR. RATE CALC > 60 mL/min (>60); GLUCOSE,RANDOM 120 mg/dL (70-110); POTASSIUM 3.6 mmol/L (3.5-5.1); SODIUM SERUM 136 mmol/L (136-145); UREA NITROGEN, BLOOD 30 mg/dL (7-18)
[2019-10-17 18:55] LABS: B-TYPE NATRIURETIC PEPTIDE < 5 pg/mL (0-100)
[2019-10-17 18:57] LABS: ALANINE AMINOTRANSFERASE 89 U/L (12-78); ALBUMIN 3.1 g/dL (3.4-5.0); ALKALINE PHOSPHATASE 112 U/L (46-116); ASPARTATE AMINOTRANSFERASE 105 U/L (15-37); BILIRUBIN,TOTAL 0.2 mg/dL (0.1-1.0); TOTAL PROTEIN, SERUM 6.6 g/dL (6.4-8.2)
[2019-10-17 19:00] LABS: CREATINE KINASE, TOTAL ONLY 1499 U/L (39-308)
[2019-10-17] MEDS ORDERED: SODIUM CHLORIDE 0.9% 1,000 ML IV ONE (20:00)
[2019-10-17 20:32] LABS: APPEARANCE,URINE CLEAR (CLEAR); BILIRUBIN,URINE NEGATIVE (NEGATIVE); GLUCOSE, URINE (UA) NEGATIVE (NEGATIVE); KETONES,URINE NEGATIVE (NEGATIVE); LEUKOCYTE ESTERASE ,URINE NEGATIVE (NEGATIVE); NITRATE,URINE NEGATIVE (NEGATIVE); OCCULT BLOOD,URINE NEGATIVE (NEGATIVE); PROTEIN,URINE NEGATIVE (NEGATIVE); UROBILINOGEN,URINE 0.2 mg/dL (<=1.0)
[2019-10-17 21:59] VITALS: BP 122/78
== END 2019-10-17 22:01 | disposition home or self-care (01) ==
LOC: EMS 17:38
DX: E86.0 Dehydration (principal); M62.82 Rhabdomyolysis; I95.1 Orthostatic hypotension; F41.9 Anxiety disorder, unspecified; F32.9 Major depressive disorder, single episode, unspecified; F20.9 Schizophrenia, unspecified; F17.210 Nicotine dependence, cigarettes, uncomplicated; F14.90 Cocaine use, unspecified, uncomplicated; F19.90 Other psychoactive substance use, unspecified, uncomplicated; Z59.0 Homelessness; Z88.8 Allergy status to other drugs, medicaments and biological substances; Z91.018 Allergy to other foods; Z79.899 Other long term (current) drug therapy
CPT/HCPCS: 36415; 80053; 81003; 82550; 83880; 84484; 85025; 93005; 99285; J7030

== ENCOUNTER 2019-10-28 18:02 | Emergency (ER) | payer OTHER ==
[~2019-10-28] VITALS: Ht 170.2 cm; Wt 79.5 kg
[~2019-10-28 18:02] MED LIST changes: +AMLO10TA7 PO; -AMLO5TAB9 PO; +BUPR150T8 PO; +LISI-658 PO; -LISI-661 PO; +LISI10TA7 PO; -SOFO1TAB2 PO
[2019-10-28] MEDS ORDERED: IBUP-2070 PO (18:27)
[2019-10-28] MEDS ORDERED: HYDR-1475 PO (18:27)
[2019-10-28] MEDS ORDERED: LISINOPRIL 10 MG TABLET PO ONE (21:30)
[2019-10-28] MEDS ORDERED: AmLODIPine BESYLATE 5 MG TABLET PO ONE (21:30)
[2019-10-28] MEDS ORDERED: HYDROCHLOROTHIAZIDE 25 MG TABLET PO ONE (21:30)
[2019-10-28] MEDS ORDERED: QUEtiapine FUMARATE 100 MG TABLET PO ONE (21:30)
[2019-10-28 22:21] VITALS: BP 155/98
== END 2019-10-28 23:19 | disposition home or self-care (01) ==
LOC: EMS 18:04
DX: I10 Essential (primary) hypertension (principal); F41.9 Anxiety disorder, unspecified; F32.9 Major depressive disorder, single episode, unspecified; F20.9 Schizophrenia, unspecified; F15.90 Other stimulant use, unspecified, uncomplicated; F11.90 Opioid use, unspecified, uncomplicated; Z76.0 Encounter for issue of repeat prescription; Z59.0 Homelessness; Z98.890 Other specified postprocedural states; Z79.899 Other long term (current) drug therapy; Z88.8 Allergy status to other drugs, medicaments and biological substances

== ENCOUNTER 2020-03-17 03:33 | Emergency (ER) | payer OTHER ==
[~2020-03-17] VITALS: Ht 170.2 cm; Wt 78.6 kg
[~2020-03-17 03:33] MED LIST changes: -BUPR150SR PO; +HYDR-1475 PO; +IBUP-2070 PO; -LISI-658 PO
[2020-03-17 05:03] VITALS: BP 136/65
== END 2020-03-17 05:30 | disposition home or self-care (01) ==
LOC: EMS 03:33
DX: F32.9 Major depressive disorder, single episode, unspecified (principal); F41.9 Anxiety disorder, unspecified; F20.9 Schizophrenia, unspecified; F17.210 Nicotine dependence, cigarettes, uncomplicated; F14.90 Cocaine use, unspecified, uncomplicated; F19.90 Other psychoactive substance use, unspecified, uncomplicated; Z76.0 Encounter for issue of repeat prescription; Z59.0 Homelessness; Z88.8 Allergy status to other drugs, medicaments and biological substances; Z91.018 Allergy to other foods; Z79.899 Other long term (current) drug therapy

== ENCOUNTER 2020-05-03 00:32 | Emergency (ER) | payer MEDICAID, OTHER ==
[~2020-05-03] VITALS: Ht 167.6 cm; Wt 70.5 kg
[~2020-05-03 00:32] MED LIST changes: +AMLO-258 PO; -AMLO10TA7 PO
[2020-05-03 01:30] LABS: AMPHET/METH SCREEN,URINE POSITIVE (NEGATIVE); BARBITURATE SCREEN, URINE NEGATIVE (NEGATIVE); BENZODIAZEPINES SCREEN,URINE POSITIVE (NEGATIVE); CANNABINOID SCREEN,URINE NEGATIVE (NEGATIVE); COCAINE SCREEN,URINE NEGATIVE (NEGATIVE); METHADONE SCREEN, URINE NEGATIVE (NEGATIVE); OPIATE SCREEN,URINE NEGATIVE (NEGATIVE)
[2020-05-03 01:31] LABS: PHENCYCLIDINE SCREEN,URINE NEGATIVE (NEGATIVE)
[2020-05-03 01:42] LABS: EOSINOPHILS % (AUTO) 1.9 % (1.0-6.0); HEMATOCRIT 38.4 % (41-53); HEMOGLOBIN 13.2 g/dL (13.5-17.5); LYMPHOCYTES # (AUTO) 1.5 K/uL (1.0-4.8); LYMPHOCYTES % (AUTO) 28.4 % (22.0-44.0); MEAN CORPUSCULAR HEMOGLOBIN 31.9 pg (26.0-34.0); MEAN CORPUSCULAR HGB CONC 34.3 G/dL (31.0-37.0); MEAN CORPUSCULAR VOLUME 93 fL (80-100); MONOCYTES # (AUTO) 0.5 K/uL (0.1-1.0); MONOCYTES % (AUTO) 10.5 % (2.0-9.0); NEUTROPHILS % (AUTO) 58.2 % (40.0-70.0); PLATELET COUNT (AUTO) 257 K/uL (150-450); RED BLOOD CELL COUNT(AUTO) 4.12 MIL/uL (4.50-5.90); RED CELL DISTRIBUTION WIDTH 13.1 % (11.5-14.5)
[2020-05-03 01:52] LABS: ANION GAP 9 mmol/L (8-16); CALCIUM, TOTAL 9.2 mg/dL (8.8-10.5); CARBON DIOXIDE 28 mmol/L (22-29); CHLORIDE 101 mmol/L (98-107); CREATININE 0.74 mg/dL (0.60-1.30); GLOMERULAR FILTR. RATE CALC > 60 mL/min (>60); GLUCOSE,RANDOM 94 mg/dL (70-110); POTASSIUM 3.5 mmol/L (3.5-5.1); SODIUM SERUM 138 mmol/L (136-145); UREA NITROGEN, BLOOD 13 mg/dL (7-18)
[2020-05-03] MEDS ORDERED: AmLODIPine BESYLATE 5 MG TABLET PO ONE (02:00)
[2020-05-03] MEDS ORDERED: LISINOPRIL 10 MG TABLET PO ONE (02:00)
[2020-05-03 02:16] LABS: ALANINE AMINOTRANSFERASE 28 U/L (12-78); ALBUMIN 3.8 g/dL (3.4-5.0); ALKALINE PHOSPHATASE 93 U/L (46-116); ASPARTATE AMINOTRANSFERASE 55 U/L (15-37); BILIRUBIN,TOTAL 0.7 mg/dL (0.1-1.0); CREATINE KINASE, TOTAL ONLY 817 U/L (39-308); TOTAL PROTEIN, SERUM 8.1 g/dL (6.4-8.2)
[2020-05-03 02:40] VITALS: BP 132/88
== END 2020-05-03 03:29 | disposition home or self-care (01) ==
LOC: EMS 00:32
DX: R00.2 Palpitations (principal); F15.10 Other stimulant abuse, uncomplicated; F41.9 Anxiety disorder, unspecified; F32.9 Major depressive disorder, single episode, unspecified; F20.9 Schizophrenia, unspecified; F14.90 Cocaine use, unspecified, uncomplicated; Z76.0 Encounter for issue of repeat prescription; Z59.0 Homelessness; Z91.018 Allergy to other foods; Z88.1 Allergy status to other antibiotic agents; Z79.899 Other long term (current) drug therapy
CPT/HCPCS: 83735; 93005

== ENCOUNTER 2021-02-05 19:49 | Emergency (ER) | payer MEDICAID ==
[~2021-02-05] VITALS: Ht 167.6 cm; Wt 77.3 kg
[~2021-02-05 19:49] MED LIST changes: -HYDR-1475 PO; +HYDR25TA2 PO; +LISI10TA24 PO; -LISI10TA7 PO
[2021-02-05] MEDS ORDERED: HYDR25TA2 PO (20:01)
[2021-02-05] MEDS ORDERED: DOLU1TAB2 PO (20:01)
[2021-02-05 20:23] VITALS: BP 157/98
[2021-02-05 20:36] LABS: COVID AG,FIA SOURCE NASOPHARYNGEAL
== END 2021-02-05 21:10 | disposition home or self-care (01) ==
LOC: EMS 19:49
DX: I10 Essential (primary) hypertension (principal); F41.9 Anxiety disorder, unspecified; F32.9 Major depressive disorder, single episode, unspecified; F20.9 Schizophrenia, unspecified; F15.90 Other stimulant use, unspecified, uncomplicated; F14.90 Cocaine use, unspecified, uncomplicated; F17.210 Nicotine dependence, cigarettes, uncomplicated; Z20.822 Contact with and (suspected) exposure to COVID-19; Z88.8 Allergy status to other drugs, medicaments and biological substances; Z79.899 Other long term (current) drug therapy; Z59.0 Homelessness
CPT/HCPCS: 87426; 99283